=== PATIENT | female | born 1945 | race Caucasian/White ===

== ENCOUNTER → 2018-03-31 16:38 | Outpatient (CLI) | payer MEDICARE, SELFPAY ==
--- NOTE | 2018-03-31 16:45 | XR_ITS ---
XR chest 2V Ordering Physician: Gwen Yuen Patient Age: 72 years: Female HISTORY: ITS.REASON: COUGH; FEVER AND CHILLS TECHNIQUE: PA and lateral chest COMPARISON :Chest film [id number] FINDINGS moderately dense left lower lobe pneumonic infiltrate is seen at the left base most pronounced to the left CP angle.. Would encourage follow-up to to see a underlying pathology The left apex upper lung field is clear the left cherie is normal as is the right cherie. However return to stable with right lung appears stable and unchanged. Old right sixth rib fracture noted. Normal pulmonary vascularity. Heart normal size. T-spine with degenerative features . Also note compression fracture at at approximate T5 level which has occurred since previous studies.... Up to 20% decreased height at this compression fracture. . IMPRESSION: Left lower lobe pneumonia Wedge compression fracture at ~T 5 has occurred since 2014. CXR
== END ==
PROVIDERS: PCP Internal Medicine Adolescent Medicine; Visit Provider Nurse Practitioner Family
DX: R05 Cough (principal); R50.9 Fever, unspecified
CPT/HCPCS: 71046

== ENCOUNTER → 2018-04-07 12:37 | Outpatient (CLI) | payer MEDICARE, SELFPAY ==
--- NOTE | 2018-04-07 12:42 | XR_ITS ---
XR chest 2V HISTORY: ITS.REASON: PNEUMONIA ORDERING PHYSICIAN: Gwen Yuen PATIENT AGE: 72 years COMPARISON: 03/31/2018 FINDINGS: The cardiomediastinal silhouette and pulmonary vascularity are within normal limits. Left lower lobe pneumonia once again noted with minimal improvement in lung base laterally. Increased density is also present in right lower lobe not present on previous study may be due to atelectasis or infiltrate. Upper lobes are clear. There is an old right sixth rib fracture. IMPRESSION: Slight improvement left lower lobe pneumonia. Increased density right lung base which may be related atelectasis or infiltrate developed since the previous exam
== END ==
PROVIDERS: PCP Internal Medicine Adolescent Medicine; Visit Provider Nurse Practitioner Family
DX: J18.1 Lobar pneumonia, unspecified organism (principal)
CPT/HCPCS: 71046

== ENCOUNTER → 2018-04-17 13:17 | Outpatient (CLI) | payer MEDICARE, SELFPAY ==
--- NOTE | 2018-04-17 13:20 | US_ITS ---
US thyroid HISTORY: ITS.REASON: THYROID NODULE ORDERING PHYSICIAN: Gwen Yuen PATIENT AGE: 72 years Comparison: None FINDINGS: The right lobe is 4.5 x 2 x 3.1 cm. The left lobe is 4.3 x 1.7 x 1.3 cm. The isthmus is thickened at 8 mm. There are 2 nodules involving the isthmus 1 centrally at 7 x 4 mm. This is hypoechoic and not well-defined. Additional isoechoic nodule is present slightly laterally measuring 7 x 4 mm. A cyst is present in the mid aspect of the right lobe at 8 x 5 mm. A 4 mm cyst is present in the upper pole on the right. There is a 12 x 9 mm isoechoic nodule in the deep aspect of the right lobe. In the upper pole on the left there is a 10 x 5 mm slightly hypoechoic nodule. A 4 mm mixed hypoechoic nodules present in the lower pole on the right. IMPRESSION: Mildly enlarged thyroid gland with multiple nodules. Please see above for detail. Consider follow-up in 6 months to confirm stability
--- NOTE | 2018-04-17 13:20 | MM_ITS ---
Dig mamm BI DX w/CAD Right breast ultrasound complete with axilla INDICATION: Follow-up abnormal CT scan demonstrating right breast mass ORDERING PHYSICIAN: Gwen Yuen PATIENT AGE: 72 years COMPARISON: 05/14/2017 TECHNIQUE: Standard images performed along with spot compression views and right breast ultrasound FINDINGS: There is average fibroglandular tissue. There is a 9 mm nodule within the medial aspect of the right breast similar to the previous exam and likely representing the abnormality that was noted on the CT scan. There is some asymmetric density in the lateral aspect of the right breast. No malignant appearing mass or malignant appearing microcalcification is evident. The left breast has an unremarkable appearance. Right breast ultrasound: There is a 9 x 5 mm hypoechoic lesion in 3:00 region of the right breast corresponding to the mammographic abnormality. This was present on previous ultrasound of 05/30/2008 and is not significant changed. There are some low-level echoes. This could represent a small fibroadenoma or complex cyst. IMPRESSION: Right breast nodule not significant changed likely corresponding to the CT abnormality and represents complex cyst or fibroadenoma. Those images are not available for comparison. This has been stable dating back to 2007 on the ultrasound BI-RADS Category: 2 Benign Finding(s) RECOMMENDED FOLLOW-UP: 1YR - 1 YEAR FOLLOW-UP (A letter has been sent to the patient regarding results of the study.)
[2018-04-17 15:30] LABS: Basophils # 0.1 K/mm3 (0-0.2); Basophils % 1.1 % (0.1-2.0); Eosinophils # 0.1 K/mm3 (0.0-0.4); Eosinophils % 1.4 % (0.1-12.0); Hematocrit 43.7 % (37.0-47.0); Hemoglobin 13.5 g/dL (12.2-16.2); Lymphocytes # 1.6 K/mm3 (0.7-4.5); Lymphocytes % 21.1 K/mm3 (10-50); Mean Corpuscular HGB Conc 30.8 g/dL (31.8-35.4); Mean Corpuscular Hemoglobin 27.8 pg (27.0-31.2); Mean Corpuscular Volume 90.2 fl (81-99); Mean Platelet Volume 6.7 fl (7.4-10.4); Monocytes # 0.3 K/mm3 (0.1-1.0); Monocytes % 4.2 % (1.7-9.3); Neutrophils # 5.3 K/mm3 (1.8-7.8); Neutrophils % 72.1 % (37.0-80.0); Platelet Count 688 K/mm3 (142-424); Red Blood Count 4.85 M/mm3 (4.20-5.40); White Blood Count 7.4 K/mm3 (4.8-10.8)
[2018-04-17 16:52] LABS: Alanine Aminotransferase 22 U/L (12-78); Albumin Level 3.6 gm/dL (3.4-5.0); Albumin/Globulin Ratio 0.9 (1.1-1.8); Alkaline Phosphatase 83 U/L (46-116); Anion Gap 13.2 mEq/L (5-15); Aspartate Amino Transferase 9 U/L (15-37); Bilirubin,Total 0.5 mg/dL (0.2-1.0); Blood Urea Nitrogen 11 mg/dL (7-18); Calcium 10.3 mg/dL (8.5-10.1); Carbon Dioxide 31 mmol/L (21.0-32.0); Chloride 100 mmol/L (98-107); Creatinine,Serum 0.76 mg/dL (0.55-1.02); Estimated Glomerular Filt Rate 75 ml/min (>60); GFR (African American) 91 ML/MIN (>60); Globulin 4.1 gm/dl (1.3-3.2); Glucose 192 mg/dL (74-106); Potassium 5.2 mmoL/L (3.5-5.1); Sodium 139 mmol/L (136-145); Total Protein,Serum 7.7 gm/dL (6.4-8.2)
== END ==
PROVIDERS: Family Provider Nurse Practitioner Family; PCP Internal Medicine Adolescent Medicine; Visit Provider Nurse Practitioner Family
DX: N63.10 Unspecified lump in the right breast, unspecified quadrant (principal); R92.8 Other abnormal and inconclusive findings on diagnostic imaging of breast; E04.1 Nontoxic single thyroid nodule
CPT/HCPCS: 36415; 76536; 76641; 77066; 80053; 85025

== ENCOUNTER → 2018-05-01 13:08 | Outpatient (CLI) | payer MEDICARE, SELFPAY ==
--- NOTE | 2018-05-01 13:23 | XR_ITS ---
XR chest 2V HISTORY: ITS.REASON: PNEUMONIA ORDERING PHYSICIAN: Gwen Yuen PATIENT AGE: 73 years Technique: PA and lateral chest COMPARISON: 04/07/2018 FINDINGS: The left lung base appears slightly clear. Slight clearing of infiltrate here but but was still some residual airspace disease at left base. I about with improving slowly resolving pneumonia. Minimal airspace disease at right base may reflect atelectasis and scarring. Upper lung fernandez are clear. Heart cherie and mediastinal structures stable. Chest wall unchanged. Old compression fracture upper T-spine again noted IMPRESSION -------- slight further clearing & improvement of the left lower lobe pneumonia resolving infiltrate left base Slight additional atelectasis at right base on today's study
[2018-05-01 13:52] LABS: Basophils % 0.6 % (0.1-2.0); Eosinophils # 0.1 K/mm3 (0.0-0.4); Eosinophils % 1.5 % (0.1-12.0); Hemoglobin 12.6 g/dL (12.2-16.2); Lymphocytes # 1.4 K/mm3 (0.7-4.5); Lymphocytes % 22.3 K/mm3 (10-50); Mean Corpuscular HGB Conc 31.6 g/dL (31.8-35.4); Mean Corpuscular Hemoglobin 28.6 pg (27.0-31.2); Mean Corpuscular Volume 90.7 fl (81-99); Mean Platelet Volume 6.7 fl (7.4-10.4); Monocytes # 0.2 K/mm3 (0.1-1.0); Monocytes % 3.7 % (1.7-9.3); Neutrophils # 4.6 K/mm3 (1.8-7.8); Neutrophils % 71.9 % (37.0-80.0); Platelet Count 389 K/mm3 (142-424); Red Blood Count 4.42 M/mm3 (4.20-5.40); Red Cell Distribution Width 13.7 % (11.5-17.5); White Blood Count 6.4 K/mm3 (4.8-10.8)
[2018-05-01 14:34] LABS: Alanine Aminotransferase 30 U/L (12-78); Albumin Level 3.9 gm/dL (3.4-5.0); Albumin/Globulin Ratio 1.1 (1.1-1.8); Alkaline Phosphatase 69 U/L (46-116); Anion Gap 11.9 mEq/L (5-15); Aspartate Amino Transferase 13 U/L (15-37); Bilirubin,Total 0.5 mg/dL (0.2-1.0); Blood Urea Nitrogen 15 mg/dL (7-18); Calcium 9.9 mg/dL (8.5-10.1); Carbon Dioxide 29 mmol/L (21.0-32.0); Chloride 103 mmol/L (98-107); Creatinine,Serum 0.85 mg/dL (0.55-1.02); Estimated Glomerular Filt Rate 66 ml/min (>60); GFR (African American) 80 ML/MIN (>60); Globulin 3.5 gm/dl (1.3-3.2); Glucose 160 mg/dL (74-106); Potassium 3.9 mmoL/L (3.5-5.1); Sodium 140 mmol/L (136-145); Total Protein,Serum 7.4 gm/dL (6.4-8.2)
== END ==
PROVIDERS: PCP Internal Medicine Adolescent Medicine; Visit Provider Nurse Practitioner Family
DX: J18.1 Lobar pneumonia, unspecified organism (principal); E87.1 Hypo-osmolality and hyponatremia
CPT/HCPCS: 36415; 71046; 80053; 85025

== ENCOUNTER → 2018-05-13 10:01 | Outpatient (CLI) | payer MEDICARE, SELFPAY ==
--- NOTE | 2018-05-13 10:04 | XR_ITS ---
XR ankle LT min 3V HISTORY: Follow-up fracture ITS.REASON: Left ankle fracture ORDERING PHYSICIAN: Michael Reyes MD PATIENT AGE: 73 years Comparison: 05/08/2019 FINDINGS: There is a lateral splint present. Nondisplaced distal fibular fracture once again noted not significant change. Nondisplaced fracture involves the base of the medial malleolus as before. There is an avulsion fracture of the tip of the medial malleolus and could be old. The ankle mortise appears slightly widened as before. IMPRESSION: Overall no change in the distal fibular and medial malleolus fracture with mild widening of the ankle mortise.
== END ==
PROVIDERS: PCP Internal Medicine Adolescent Medicine; Visit Provider Orthopaedic Surgery
DX: S82.63XA Displaced fracture of lateral malleolus of unspecified fibula, initial encounter for closed fracture (principal)
CPT/HCPCS: 73610

== ENCOUNTER → 2018-05-28 13:29 | Outpatient (CLI) | payer MEDICARE, SELFPAY ==
--- NOTE | 2018-05-28 13:33 | XR_ITS ---
XR ankle LT min 3V HISTORY: Follow-up fracture ITS.REASON: follow up ORDERING PHYSICIAN: Shane Cox MD PATIENT AGE: 73 years Comparison: 05/13/2018 FINDINGS: Overall no change nondisplaced fracture of the distal shaft of the fibula. The ankle mortise is slightly widened and the distal tibia/fibular syndesmosis is also slightly widened. There is also avulsion fracture of the tip of the medial malleolus. IMPRESSION: Overall no change distal tib-fib fracture with mild widening of the ankle mortise and distal tibia fibular syndesmosis
--- NOTE | 2018-05-28 16:08 | XR_ITS ---
XR ankle LT min 3V HISTORY: Follow-up catheter placement ITS.REASON: left ankle fx/ cast applied ORDERING PHYSICIAN: Shane Cox MD PATIENT AGE: 73 years Comparison: 05/28/2018 FINDINGS: A cast is in place stabilizing the distal fibular and tibial fractures with mild persistent widening of the ankle mortise not significant changed. IMPRESSION: Interval cast placement otherwise no change in the nondisplaced distal tibia and fibular fractures with mild widening of the ankle mortise
== END ==
PROVIDERS: PCP Internal Medicine Adolescent Medicine; Visit Provider Orthopaedic Surgery
DX: S82.63XA Displaced fracture of lateral malleolus of unspecified fibula, initial encounter for closed fracture (principal)
CPT/HCPCS: 73610

== ENCOUNTER → 2018-06-19 13:18 | Outpatient (CLI) | payer MEDICARE, SELFPAY ==
--- NOTE | 2018-06-19 13:20 | XR_ITS ---
XR ankle LT min 3V HISTORY: Follow-up fracture ITS.REASON: FOLLOW UP AFTER REMOVAL OF CAST! ORDERING PHYSICIAN: Shane Cox MD PATIENT AGE: 73 years Comparison: 05/28/2018 FINDINGS: The cast has been removed. Bimalleolar fracture once again noted. The ankle mortise appears slightly more widened on today's exam. The talus appears slightly displaced laterally with mild widening of the tibiofibular space. Medial malleolar fracture line is still present. The lateral malleolus fracture line appears less apparent. IMPRESSION: 1. Bimalleolar fracture as described above with mild widening of the ankle mortise suggesting injury to the tibiofibular syndesmosis
[2018-06-19 16:04] LABS: Anion Gap 13.9 mEq/L (5-15); Blood Urea Nitrogen 15 mg/dL (7-18); Calcium 10.3 mg/dL (8.5-10.1); Carbon Dioxide 29 mmol/L (21.0-32.0); Chloride 102 mmol/L (98-107); Creatinine,Serum 0.93 mg/dL (0.55-1.02); Estimated Glomerular Filt Rate 59 ml/min (>60); GFR (African American) 72 ML/MIN (>60); Glucose 240 mg/dL (74-106); Potassium 4.9 mmoL/L (3.5-5.1); Sodium 140 mmol/L (136-145)
== END ==
PROVIDERS: Nurse Practitioner Family; PCP Internal Medicine Adolescent Medicine; Visit Provider Orthopaedic Surgery
DX: S82.63XA Displaced fracture of lateral malleolus of unspecified fibula, initial encounter for closed fracture (principal); E87.1 Hypo-osmolality and hyponatremia
CPT/HCPCS: 36415; 73610; 80048

== ENCOUNTER 2018-06-19 14:22 | Outpatient (RCR) | payer MEDICARE, SELFPAY | END 2018-06-19 14:23 | disposition home or self-care (01) | LOC: PT 14:22 | PROVIDERS: Family Provider Nurse Practitioner Family; PCP Internal Medicine Adolescent Medicine; Visit Provider Orthopaedic Surgery | DX: S82.63XA Displaced fracture of lateral malleolus of unspecified fibula, initial encounter for closed fracture (principal) | CPT/HCPCS: 97760 ==

== ENCOUNTER → 2018-07-31 12:44 | Outpatient (CLI) | payer MEDICARE, SELFPAY ==
--- NOTE | 2018-07-31 12:47 | XR_ITS ---
XR ankle LT min 3V HISTORY: Follow-up fracture ITS.REASON: lt ankle fx fu ORDERING PHYSICIAN: Shane Cox MD PATIENT AGE: 73 years Comparison: 06/19/2018 FINDINGS: There is diffuse osteopenia about the ankle. Fracture at the base of the medial malleolus once again noted somewhat less apparent. Nondisplaced fracture of the distal fibula noted somewhat less apparent. Ankle mortise appears slightly widened as before with subcortical lucency along the lateral aspect of the talar dome. IMPRESSION: Healing bimalleolar fracture with mild widening of the ankle mortise and possible developing osteochondrosis of the lateral aspect of the talar dome
== END ==
PROVIDERS: PCP Internal Medicine Adolescent Medicine; Visit Provider Orthopaedic Surgery
DX: S82.63XA Displaced fracture of lateral malleolus of unspecified fibula, initial encounter for closed fracture (principal)
CPT/HCPCS: 73610

== ENCOUNTER → 2018-09-18 11:59 | Outpatient (CLI) | payer MEDICARE, SELFPAY ==
--- NOTE | 2018-09-18 12:02 | XR_ITS ---
XR ankle LT min 3V HISTORY: Follow-up fracture or ITS.REASON: follow up out of cam walker. ORDERING PHYSICIAN: Shane Cox MD PATIENT AGE: 73 years Comparison: None FINDINGS: There is diffuse osteopenia. Healed fractures are present involving the distal fibula and medial malleolus. Normal alignment. IMPRESSION: No change diffuse osteopenia with healed fractures of the distal fibula and medial malleolus
== END ==
PROVIDERS: PCP Internal Medicine Adolescent Medicine; Visit Provider Orthopaedic Surgery
DX: S82.63XA Displaced fracture of lateral malleolus of unspecified fibula, initial encounter for closed fracture (principal)
CPT/HCPCS: 73610

== ENCOUNTER → 2018-11-06 14:49 | Outpatient (CLI) | payer MEDICARE, SELFPAY ==
--- NOTE | 2018-11-06 15:02 | XR_ITS ---
XR ankle wt bearing LT min 3V HISTORY: ITS.REASON: pain ORDERING PHYSICIAN: Manuela Stevens DPM PATIENT AGE: 73 years Comparison: 09/18/2018 FINDINGS: Healed distal fibular fracture is noted. There are minimal osteoarthritic changes of the ankle joint with some mild deformity of the distal fibula from the old fracture. There is a faint lucency involving the lateral aspect of the talar dome in the subcortical region. There are mild hypertrophic changes at the medial malleoli region distally No other significant anomalies are evident. IMPRESSION: 1. Healed distal fibular fracture. 2. Subcortical lucency of the lateral aspect of the talar dome. This is nonspecific and may only be due to projection. An osteochondral defect or subcortical cyst is also a consideration. CT or MRI may be of further value if clinically warranted
--- NOTE | 2018-11-06 15:02 | XR_ITS ---
XR ankle wt bearing RT min 3V HISTORY: ITS.REASON: pain ORDERING PHYSICIAN: Manuela Stevens DPM PATIENT AGE: 73 years Comparison: None FINDINGS: The ankle joint has an unremarkable appearance. The talar dome is unremarkable in the ankle mortise is preserved. There is pes planus with mild superior displacement of the navicular and bony hypertrophy at the talonavicular joint and the metatarsal tarsal joints dorsally. A prominent calcaneal spur is present at 10 mm. IMPRESSION: 1. Negative ankle. 2. Pes planus with degenerative changes
== END ==
PROVIDERS: PCP Internal Medicine Adolescent Medicine; Visit Provider Podiatrist
DX: M25.572 Pain in left ankle and joints of left foot (principal); M25.571 Pain in right ankle and joints of right foot
CPT/HCPCS: 73610

== ENCOUNTER 2018-12-16 11:00 | Outpatient (RCR) | payer MEDICARE, SELFPAY ==
--- NOTE | 2018-11-18 10:02 | HMH.PTOPEV ---
PT Outpatient Evaluation Rehab PT Outpatient Evaluation Start: 11/18/18 09:11 Freq: Status: Active Protocol: Document 11/18/18 09:50 NEGRITA (Rec: 11/18/18 09:58 PHORNE [id number]) Electronically Signed By Faisal Bejarano, PT 11/18/18 09:50 Outpatient Therapy Subjective History Subjective History Pt is 73 yowf who presents with c/o left ankle stiffness, pain and swelling 6 mos S/P left distal fibula fx with conservative management. She reports having home health therapy which did help, but remains stiff and swollen. She has hx of DM-II, HTN, CVA, HL , HANNAH. No current numbness or tingling and only mild pain. Chief Complaint Pain Stiff Swelling Symptom Type Ache Symptoms Relieved By Rest/Positioning Symptoms Aggravated By Physical Activity Prior Functional Limitations None Current Functional Limitations Recreation Activity Walking Stairs Symptom Description Intermittent Activity Dependent Level of pain today (0-10) 2 Pain scale - at its worst (0-10) 4 Ankle/Foot Eval Gait Observation General Gait Pattern Observation Antalgic Gait Palpation Tenderness left Ankle/Foot Palpation Findings Tenderness Ankle/Foot Palpation Overall Comment peroneal tendon and muscles ROM Ankle/Foot Dorsiflexion w/Knee Extended 0-4 Active Range Motion (degrees) Ankle/Foot Dorsiflexion w/Knee Extended 0-8 Passive Range (degrees) Ankle/Foot Plantar Flexion Active Range 0-34 of Motion (degrees) Ankle/Foot Plantar Flexion Passive Range 0-34 of Motion (degrees) Ankle/Foot Eversion Active Range of 0-4 Motion (degrees) Ankle/Foot Eversion Passive Range of 0-6 Motion (degrees) Ankle/Foot Inversion Active Range of 0-20 Motion (degrees) Ankle/Foot Inversion Passive Range of 0-25 Motion (degrees) MMT Ankle Dorsiflexion Strength Grade 3+ Fair+ Ankle Plantarflexion Strength Grade 4- Good- Foot Eversion Strength Grade 3+ Fair+ Foot Inversion Strength Grade 3+ Fair+ Outpatient Therapy Assessment Impairments Problems/Impairmments Palpation Tenderness Impaired Range of Motion Impaired Strength Impaired Endurance Impaired Gait Pattern
== END 2018-12-17 11:05 | disposition home or self-care (01) ==
LOC: PT 11:00
PROVIDERS: Visit Provider Podiatrist
DX: I89.0 Lymphedema, not elsewhere classified (principal)
CPT/HCPCS: 97010; 97014; 97016; 97110; 97140; 97163; 97760; G0283

== ENCOUNTER → 2018-12-26 08:13 | Outpatient (CLI) | payer MEDICARE, SELFPAY ==
--- NOTE | 2018-12-26 | CI_ITS ---
Cerebrovascular Exam Indications: 785.9 Bruit. IMPRESSIONS 1. The bilateral vertebral arteries are patent with normal antegrade flow. 2. Study suggests occlusion involving the right common carotid artery and the right internal carotid artery. 3. Study suggests 50-69% stenosis involving the left internal carotid artery. 4. Study suggests >60% stenosis involving the left external carotid artery. Carotid duplex study. Complete study and Doppler flow study including spectral analysis, color and [place] scale imaging. Height: Height: 154.9cm. Height: 61in. Weight: Weight: 72.6kg. Weight: 159.7lb. Body mass index: BMI: 30.2kg/m^2. Body surface area: BSA: 1.79m^2. Location: Vascular laboratory. Patient status: Outpatient. CRITICAL FINDINGS - Reported to: Katharina Licea - Read back and verified. - 12/26/1845 - Occluded CCA, ICA RIGHT Tables: Arterial flow: + +--------+--------+ Location V sys V ed + +--------+--------+ Right ECA 25cm/s -------- + +--------+--------+ Right vertebral 57.5cm/s -------- + +--------+--------+ Left CCA - proximal 67.8cm/s 16.7cm/s + +--------+--------+ Left CCA - distal 58.4cm/s 13.8cm/s + +--------+--------+ Left ECA 373cm/s -------- + +--------+--------+ Left ICA - mid 181cm/s 69.6cm/s + +--------+--------+ Left ICA - distal 113cm/s 39.3cm/s + +--------+--------+ Left vertebral 63.8cm/s -------- + +--------+--------+ Velocity ratios: + + + + Left, V sys Left, V ed + + + + Max ICA/dist CCA 3.1 5.04 + + + + (Report amended ) Electronically signed by: Ancelmo Jarquin [id number]
--- NOTE | 2018-12-26 09:10 | US_ITS ---
US thyroid HISTORY: Follow-up thyroid nodule ITS.REASON: THYROID NODULE ORDERING PHYSICIAN: Katharina Licea PATIENT AGE: 73 years Comparison: 04/17/2018 FINDINGS: The isthmus is thickened at 9 mm. There are numerous bilateral thyroid nodules once again noted. There are least 2 nodules in the isthmus one on the right at 8 mm and one centrally at 8 mm. These are not significantly changed. The right lobe is 4.8 x 1.9 x 2.3 cm. There are numerous nodules present including small cysts. A complex cystic nodule is resident 6 mm roughly unchanged. Previously noted simple appearing cyst along the lower pole is no longer apparent. There is a solid nodule along the posterior aspect of the right lobe at 12 mm unchanged and an additional isoechoic solid nodule in the lower pole at 8 mm probably unchanged. The left lobe is 4.1 x 1.2 x 1.6 cm. An isoechoic nodule is present in the upper pole at 8 mm unchanged. A 4 mm isoechoic nodule is present in the mid polar region unchanged. A small ill-defined area of slight decrease echogenicity present along the lower pole at 5 mm unchanged. No new suspicious nodules are evident. IMPRESSION: Multinodular goiter not significantly changed
== END ==
PROVIDERS: PCP Internal Medicine Adolescent Medicine; Visit Provider Nurse Practitioner Family
DX: I65.23 Occlusion and stenosis of bilateral carotid arteries (principal); R09.89 Other specified symptoms and signs involving the circulatory and respiratory systems; E04.1 Nontoxic single thyroid nodule
CPT/HCPCS: 76536; 93880

== ENCOUNTER → 2018-12-29 10:58 | Outpatient (CLI) | payer MEDICARE, SELFPAY ==
--- NOTE | 2018-12-29 11:10 | CT_ITS ---
CT angio head INDICATION: Carotid stenosis ITS.REASON: EMMA CAROTID ARTERY STENOSIS ORDERING PHYSICIAN: Katharina Licea PATIENT AGE: 73 years COMPARISON: None TECHNIQUE: Axial images are obtained following the intravenous administration of 100 mL of Optiray 350. Sagittal and coronal reformatted images are reviewed as well. All CT scans at the facility use one or more dose reduction, viz: automated exposure control, ma/kV adjustment per patient size (including targeted exams where dose is matched to indication, i.e. head), or iterative reconstruction technique. FINDINGS: There is occlusion of the right common carotid artery extending into the right internal carotid artery. The right internal carotid artery is occluded in the cervical portion at the base of the skull as well as the right cavernous sinus. There is reconstitution of the right posterior cerebral, anterior cerebral, middle cerebral artery from the [place]. Atheromatous changes involve the intracranial portion of the left internal carotid artery. No obvious aneurysm. The vertebrobasilar system has an unremarkable appearance. Both vertebral arteries are patent No enhancing intracranial lesions are evident. IMPRESSION: There is occlusion of the right common carotid artery which extends into the cervical portion of the internal carotid artery and into the cranial portion of the internal carotid artery with reconstitution of the anterior cerebral, middle, and posterior vertebral arteries via the [place]
--- NOTE | 2018-12-29 11:10 | CT_ITS ---
CT angio neck INDICATION: Carotid occlusion on the right, left carotid stenosis ITS.REASON: EMMA CAROTID ARTERY STENOSIS ORDERING PHYSICIAN: Katharina Licea PATIENT AGE: 73 years COMPARISON: None TECHNIQUE: Axial images are obtained following the bolus administration of 100 mL's of Optiray 350 contrast. Sagittal and coronal reformatted images are reviewed as well. All CT scans at the facility use one or more dose reduction, viz: automated exposure control, ma/kV adjustment per patient size (including targeted exams where dose is matched to indication, i.e. head), or iterative reconstruction technique. FINDINGS: Aortic arch: There is tortuosity of the proximal aspect of the great vessels with no significant stenosis evident. Carotids: There is complete occlusion of the right common carotid beginning proximally and extending to the carotid bifurcation also involving the cervical portion of the internal carotid on the right as well as the cranial portion of the right internal carotid only with reconstitution of the anterior cerebral, middle cerebral, and posterior vertebral arteries via the [place]. The left common carotid has an unremarkable appearance. There is a moderate amount of calcific plaque within the right carotid bifurcation with an area of short segment stenosis involving the ostium of the left internal carotid artery of 63%. There is prominent tortuosity of the carotids. IMPRESSION: 1. Occlusion of the right common carotid, cervical portion of the internal carotid, and right cranial portion of the internal carotid 2. High-grade stenosis of the proximal aspect of the left internal carotid artery of 63% IMPRESSION:
== END ==
PROVIDERS: PCP Internal Medicine Adolescent Medicine; Visit Provider Nurse Practitioner Family
DX: I65.23 Occlusion and stenosis of bilateral carotid arteries (principal)
CPT/HCPCS: 70496; 70498; Q9967

== ENCOUNTER → 2019-08-13 12:35 | Outpatient (CLI) | payer MEDICARE, SELFPAY ==
--- NOTE | 2019-08-13 12:37 | MM_ITS ---
PROCEDURE: MM DIG SCREENING MAMM BI W/CAD Patient Age:74Y CLINICAL INDICATION: SCREENING 74-year-old. No hormones, no new complaints. Noncontributory family history COMPARISON: DIGMAMMS MAMMOGRAM SCREEN-SPECIAL TESTER N/C from 05/08/2010 [facility] DIGITAL MAMM-SCREEN BILATERAL from 05/11/2011 [facility] DIGITAL MAMM-SCREEN BILATERAL from 06/05/2012 [facility] DIG MAMM-SCREEN EMMA W/CAD from 05/14/2017 [facility] MM Dig mamm BI DX w/CAD from 04/17/2018 TECHNIQUE: Standard CC and MLO images were obtained. R2 CAD reviewed. FINDINGS: Moderate fibroglandular elements most evident central and upper outer quadrant both breast but Fibroglandular elements appear stable bilaterally. No new nor suspicious mass in either breast. No suspicious calcifications.. CAD highlights no new areas of concern Right breast: No new areas of concern . Stable round density medial inferior right breast. 10 mm size but no significant change since multiple previous studies dating back to 1999 12. This can be followed,. Remainder of the right breast unchanged with no other areas of concern. Left breast: No new areas of concern. Mole markers are seen at the superior and inferior breast.. IMPRESSION: Stable bilateral mammogram. No new areas of concern. Longstanding stable densities right breast Routine annual follow-up 1 year recommended BI-RAD Category: 2 Benign Finding(s) FOLLOW-UP: 1YR 1 Year Follow-up (A letter has been sent to the patient regarding results of the study.) Dictated by: Austin Garcia MD 08/13/2019 13:40 Electronically signed by Austin Garcia MD in [place] 08/13/2019 13:40
== END ==
PROVIDERS: PCP Internal Medicine Adolescent Medicine; Visit Provider Nurse Practitioner Family
DX: Z12.31 Encounter for screening mammogram for malignant neoplasm of breast (principal)
CPT/HCPCS: 77067

== ENCOUNTER → 2019-12-18 11:58 | Outpatient (CLI) | payer MEDICARE, SELFPAY | PROVIDERS: PCP Nurse Practitioner Family; Visit Provider Nurse Practitioner Family | DX: R00.1 Bradycardia, unspecified (principal) | CPT/HCPCS: 93225; 93226 ==

== ENCOUNTER → 2020-04-11 12:39 | Outpatient (CLI) | payer MEDICARE, SELFPAY ==
--- NOTE | 2020-04-11 | CA_ITS ---
APPROVED REPORT Lapping Machine Tender: Mary Ann Harris, PRECISION STRUCTURAL METAL FITTER Laterality: Bilateral Study Quality: Fair Indications: Bruit, Surgical f/u Surgery/Intervention left KRISSY Occluded Doppler Spectral Velocity Analysis ECA (R) 48.00/0.90 cm/s ECA (L) 133.70/15.40 cm/s Vert (R) 44.60/12.00 cm/s dICA (L) 92.00/27.70 cm/s Yovani (L) 124.20/23.20 cm/s pICA (L) 134.50/23.10 cm/s dCCA (L) 75.40/16.30 cm/s pCCA (L) 114.00/18.80 cm/s Vert (L) 64.30/16.30 cm/s ICA/CCA 1.80 Conclusion Duplex evaluation demonstrates occlusion for the right common carotid and internal carotid artery, known. Duplex evaluation demonstrates stenosis of the left proximal internal carotid artery in the range of 20-49% with PSV <140 cm/sec, EDV <100 cm/sec, and IC/CC Ratio <4.0. Duplex evaluation demonstrates antegrade flow of the bilateral Vertebral Arteries. Electronically signed by : Ancelmo Jarquin MD 04/11/2020 17:05:52
== END ==
PROVIDERS: PCP Nurse Practitioner Family; Visit Provider Thoracic Surgery (Cardiothoracic Vascular Surgery)
DX: I65.23 Occlusion and stenosis of bilateral carotid arteries (principal)
CPT/HCPCS: 93880

== ENCOUNTER → 2020-11-03 08:41 | Outpatient (CLI) | payer MEDICARE, SELFPAY ==
--- NOTE | 2020-11-03 08:45 | MM_ITS ---
PROCEDURE: MM DIG SCREENING MAMM BI W/CAD Referring Doctor: Katharina Licea Patient Age:75Y CLINICAL INDICATION: SCREENING COMPARISON: MG DIGMAMMS MAMMOGRAM SCREEN-CONTAINER FINISHER N/C from 04/07/2009 MG DIGMAMMS MAMMOGRAM SCREEN-CONTAINER FINISHER N/C from 05/08/2010 MG [facility] DIGITAL MAMM-SCREEN BILATERAL from 05/11/2011 MG [facility] DIGITAL MAMM-SCREEN BILATERAL from 06/05/2012 MG [facility] DIG MAMM-SCREEN EMMA W/CAD from 05/14/2017 MG [facility] MM Dig mamm BI DX w/CAD from 04/17/2018 MG MM DIG SCREENING MAMM BI W/CAD from 08/13/2019 TECHNIQUE: Standard CC and MLO images were obtained. R2 CAD reviewed. Bilateral digital breast tomosynthesis included. FINDINGS: Moderate density breast/moderate scattered fibroglandular elements throughout both breast but with no new dominant or suspicious mass. No new suspicious calcifications... Scattered moles skin moles most with markers both breast again observed Left breast-no new areas of significant concern. The Minor areas of asymmetry stable since 2010; follow-up left mammogram 1 year Right breast: No new areas of concern Stable well-marginated nodular density medial right retroareolar region again evident unchanged since at least 2018 and actually was present 2009 mammogram. Can be followed safely. Remainder breast unchanged IMPRESSION: Stable mammogram with no new areas of significant concern Bilateral follow-up 1 year recommended BI-RAD Category: 2 Benign Finding(s) FOLLOW-UP: 1YR 1 Year Follow-up (A letter has been sent to the patient regarding results of the study.) Dictated by: Austin Garcia MD 11/09/2020 12:18 Austin Garcia MD in [place] 11/09/2020 12:18
--- NOTE | 2020-11-03 08:45 | US_ITS ---
PROCEDURE: US THYROID CLINICAL INDICATION: THYROID NODULE Follow-up thyroid nodule COMPARISON: US THY US thyroid from 12/26/2018 FINDINGS: The right lobe measures 4.4 x 2.4 x 2.7 cm. There is a 5 mm cyst in the upper pole on the right. Small spongiform nodule is present in the mid polar region at 5 mm. Posteriorly there is a 12 x 8 mm area I so echogenicity on the right. This is unchanged. Other smaller cystic lesions are present in the right lobe. The left lobe is 3.8 x 1.3 x 1.5 cm. There is a 9 x 5 mm slightly hypoechoic nodule in the upper pole on the left unchanged. Other smaller nodular regions are present which may merely represent heterogeneous echogenicity. The isthmus is thickened. A 1 cm well-circumscribed nodules present in the isthmus which is slightly hypoechoic on the right and slightly hyperechoic on the left not significantly changed in size. IMPRESSION: Multinodular goiter overall not significantly changed Dictated by: Ancelmo Jarquin MD 11/03/2020 18:39 Ancelmo Jarquin MD in [place] 11/03/2020 18:39
== END ==
PROVIDERS: PCP Internal Medicine Adolescent Medicine; Visit Provider Nurse Practitioner Family
DX: Z12.31 Encounter for screening mammogram for malignant neoplasm of breast (principal); E04.1 Nontoxic single thyroid nodule
CPT/HCPCS: 76536; 77063; 77067

== ENCOUNTER → 2021-04-13 10:52 | Outpatient (CLI) | payer MEDICARE, MEDICAID, SELFPAY ==
--- NOTE | 2021-04-13 10:55 | CA_ITS ---
APPROVED REPORT [place] [employer]: JOSE Laterality: Bilateral Study Quality: Good Risk Factors Hypertension: Hyperlipidemia Diabetes, Hx- RCCA and KRISSY total occlussion. Doppler Spectral Velocity Analysis ECA (R) 46.90/5.10 cm/s ECA (L) 90.00/8.60 cm/s Vert (R) 57.10/14.80 cm/s dICA (L) 126.20/37.60 cm/s ICA/CCA 0.00 Yovani (L) 104.00/39.50 cm/s pICA (L) 220.40/68.20 cm/s dCCA (L) 61.00/14.10 cm/s pCCA (L) 53.30/10.90 cm/s Vert (L) 55.10/17.60 cm/s ICA/CCA 3.60 Findings Known Right Common carotid and Right internal carotid artery occlussion. Duplex evaluation demonstrates moderate stenosis of the proximal left Internal Carotid Artery in the range of 50-69% =140 cm/sec. Duplex evaluation demonstrates antegrade flow of the bilateral Vertebral Arteries. Conclusion Known Right Common carotid and Right internal carotid artery occlussion. Duplex evaluation demonstrates moderate stenosis of the proximal left Internal Carotid Artery in the range of 50-69% =140 cm/sec. Duplex evaluation demonstrates antegrade flow of the bilateral Vertebral Arteries. Electronically signed by : Ancelmo Jarquin MD 04/13/2021 15:37:39
== END ==
PROVIDERS: PCP Internal Medicine Adolescent Medicine; Visit Provider Thoracic Surgery (Cardiothoracic Vascular Surgery)
DX: R42 Dizziness and giddiness (principal)
CPT/HCPCS: 93880

== ENCOUNTER → 2021-07-20 15:29 | Outpatient (CLI) | payer MEDICARE, MEDICAID, SELFPAY ==
--- NOTE | 2021-07-20 15:38 | XR_ITS ---
PROCEDURE: XR CHEST 2V CLINICAL HISTORY: COVID-19, PNEUMONIA DUE TO COVID 19 COMPARISON: CR CXR2V XR chest 2V from 03/31/2018 CR CXR2V XR chest 2V from 04/07/2018 CR CXR2V XR chest 2V from 05/01/2018 FINDINGS: The cardiomediastinal silhouette and pulmonary vascularity are within normal limits. Bilateral pneumonia is present in the right upper, left upper, left mid and lower lung zone. These findings have progressed compared to the previous exam. No obvious effusion. There are old right-sided rib fractures. No acute bony abnormalities. IMPRESSION: Multifocal pneumonia which is worse consistent with worsening Covid19 pneumonia. Dictated by: Ancelmo Jarquin MD 07/20/2021 16:10 Ancelmo Jarquin MD in [place] 07/20/2021 16:10
== END ==
PROVIDERS: PCP Internal Medicine Adolescent Medicine; Visit Provider Internal Medicine Adolescent Medicine
DX: U07.1 COVID-19 (principal); J12.82 Pneumonia due to coronavirus disease 2019
CPT/HCPCS: 71046

== ENCOUNTER → 2021-07-25 10:27 | Outpatient (CLI) | payer MEDICARE, MEDICAID, SELFPAY | PROVIDERS: Visit Provider Internal Medicine Adolescent Medicine | DX: R30.0 Dysuria (principal) | CPT/HCPCS: 87086; 87088; 87186 ==

== ENCOUNTER 2021-07-25 10:43 | Observation (INO) | payer MEDICARE, MEDICAID, SELFPAY ==
[2021-07-25 11:19] VITALS: BMI 23.0
--- NOTE | 2021-07-25 11:23 | XR_ITS ---
PROCEDURE INFORMATION: Exam: XR Chest Exam date and time: 07/25/2021 11:23 AM Age: 76 years old Clinical indication: Other: Crackles on auscultation TECHNIQUE: Imaging protocol: XR of the chest. Views: 2 views. COMPARISON: CR XR CHEST 2V 07/20/2021 3:42 PM FINDINGS: Lungs: Bilateral consolidation and ground-glass opacities are unchanged, most prominent in the left lower lung. Pleural spaces: Minimal right costophrenic angle blunting. Heart/Mediastinum: No cardiomegaly. Bones/joints: No acute findings. IMPRESSION: Bilateral pneumonia consistent with COVID-19 pneumonia, unchanged. Possible small right pleural effusion.
[2021-07-25 11:41] LABS: Coronavirus 19, PCR Not Detected (NotDetected); Influenza A, PCR Not Detected (NotDetected); Influenza B, PCR Not Detected (NotDetected)
[2021-07-25 11:44] LABS: Basophils # 0.1 K/mm3 (0-0.2); Basophils % 0.2 % (0.1-2.0); Bilirubin,Total 0.7 mg/dl (0.2-1.3); Eosinophils # 0.1 K/mm3 (0.0-0.4); Eosinophils % 0.5 % (0.1-12.0); Hematocrit 41.3 % (37.0-47.0); Hemoglobin 13.5 g/dL (12.2-16.2); Lymphocytes # 0.9 K/mm3 (0.7-4.5); Lymphocytes % 3.6 % (10-50); Mean Corpuscular HGB Conc 32.8 g/dL (31.8-35.4); Mean Corpuscular Hemoglobin 30.2 pg (27.0-31.2); Mean Corpuscular Volume 92.1 fl (81-99); Mean Platelet Volume 7.4 fl (7.4-10.4); Monocytes # 0.7 K/mm3 (0.1-1.0); Monocytes % 2.9 % (1.7-9.3); Neutrophils # 22.2 K/mm3 (1.8-7.8); Neutrophils % 92.8 % (37.0-80.0); Platelet Count 378 K/mm3 (142-424); Red Blood Count 4.48 M/mm3 (4.20-5.40); Red Cell Distribution Width 13.8 % (11.5-17.5); White Blood Count 23.9 K/mm3 (4.8-10.8)
[2021-07-25 11:46] LABS: Chloride 88 mmol/L (98-107)
[2021-07-25 11:47] LABS: Potassium 4.2 mmoL/L (3.5-5.1); Sodium 123 mmol/L (136-145)
[2021-07-25 11:49] LABS: Alanine Aminotransferase 22 U/L (12-78); Anion Gap 12.2 mEq/L (5-15); Aspartate Amino Transferase 37 U/L (14-36); Blood Urea Nitrogen 18 mg/dl (7-17); Carbon Dioxide 27 mmol/L (22.0-30.0); Creatinine Clearance Estimated 45 mL/min (50-200); Estimated Glomerular Filt Rate 70 ml/min (>60); GFR (African American) 85 ML/MIN (>60)
[2021-07-25 11:50] LABS: Albumin Level 3.4 g/dl (3.5-5.0); Albumin/Globulin Ratio 1.1 (1.1-1.8); Alkaline Phosphatase 91 U/L (38-126); Bilirubin,Total 0.7 mg/dl (0.2-1.3); Calcium 9.3 mg/dl (8.4-10.2); Globulin 3.1 g/dL (1.3-3.2); Glucose 150 mg/dl (74-100); Magnesium 1.5 mg/dl (1.6-2.3); Total Protein,Serum 6.5 g/dl (6.3-8.2)
[2021-07-25 11:55] VITALS: BP 95/53; PULSE 74; RESP 15; TEMP 37; O2SAT 96
[2021-07-25 12:09] LABS: Lactic Acid 1.8 mmol/L (0.7-2.1)
[2021-07-25 12:15] VITALS: RESP 16
[2021-07-25 12:15] LABS: MANUAL DIFFERENTIAL MANUAL DIFFERENTIAL (MANUAL DIFF)
[2021-07-25 12:19] LABS: Hypochromasia 1+; Lymphocytes % 2 % (10-50); Macrocytosis 1+; Monocytes % 1 % (2-9); Neutrophils % 97 % (42-76); Platelet Estimate Normal; Total Cells Counted 100
[2021-07-25 12:30] LABS: Activated Partial Thrombo Time 28.2 seconds (22.8-30.6); INR 0.94 (0.9-1.1); Prothrombin Time 10.7 seconds (10.1-12.5)
--- NOTE | 2021-07-25 13:44 | HMH.PHAINT ---
MEDICATION RECONCILIATION COMPLETE USING SURESCRIPTS AND PREVIOUS OFFICE VISIT
--- NOTE | 2021-07-25 13:45 | ECG_ITS ---
APPROVED REPORT Exam: Resting ECG HR:70 bpm ECG Measurements Heart Rate 70 AXES OR 144 P 25 QRSd 84 QRS 30 QT 388 T 1 QTc 419 Conclusion Normal sinus rhythm Late R wave progression Abnormal ECG Electronically signed by : Ed Stevens MD 07/26/2021 17:28:41
--- NOTE | 2021-07-25 14:10 | P.CONPHA_ITS ---
[facility] Pharmacy VTE Monitoring - Patient Demographics Admission date: 07/25/21 Report Date: 07/25/21 Time: 14:10 Allergies/Adverse Reactions: Patient Allergies hydralazine Allergy (Verified 12/01/19 08:33) Height: 1.6 m Weight: 58.967 kg - VTE Risk Labs: VTE Related Lab Results Hgb 13.5 g/dL (12.2-16.2) 07/25/21 11:00 Hct 41.3 % (37.0-47.0) 07/25/21 11:00 Plt Count 378 K/mm3 (142-424) 07/25/21 11:00 PT 10.7 seconds (10.1-12.5) 07/25/21 11:00 INR 0.94 (0.9-1.1) 07/25/21 11:00 APTT 28.2 seconds (22.8-30.6) 07/25/21 11:00 BUN 18 mg/dl (7-17) H 07/25/21 11:00 Creatinine 0.80 mg/dl (0.52-1.04) 07/25/21 11:00 Estimated Creat Clear 45 mL/min (50-200) 07/25/21 11:00 Was VTE Risk Assessment Performed: Yes VTE Score: 4 VTE Risk Level: Low Risk - Prophylaxis VTE Prophylaxis Ordered?: Yes Types of VTE Prophylaxis: TEDS Knee High Location of Applied Device: Bilateral Lower Extremeties
--- NOTE | 2021-07-25 15:03 | HMH.HP ---
*Admission Date: 07/25/21 *Chief complaint: weakness, fever *History of present illness: Ms. Farr is a 76 yr old female seen initially in my office today for follow-up from recent Covid hospitalization. She was accompanied by her daughter. Concern however this morning for being hypotensive at home with systolics in the 80s. Family reports she has been doing better since getting home from extended hospitalization for Covid pneumonia. Is on Bactrim for bacterial pneumonia. Takes several medications for blood pressure at home including carvedilol twice daily, nifedipine daily, clonidine 3 times a day, and losartan every morning. Her blood pressures have gradually decreased over the past week with their lowest today in the office. Normal blood pressure for her is systolic less than 120 over less than 65. She has a known history of carotid artery stenosis with total occlusion of the right side. [employer] has been working with her. Patient reported to the office today saying she was feeling more weak and fatigued. Denied any chest pain, worsening shortness of breath (on baseline 2 L nasal cannula). Febrile this morning at home with temperature of 100.8. No nausea, vomiting, diarrhea. No swelling in her legs. No oumar confusion Directly admitted from the office due to hypotension and fever concerning for worsening infection/secondary bacterial infection after COVID pneumonia. [facility] History I have reviewed the patient's past medical history: Yes Medical History: Reports:: Cerebrovascular Accident (1992), Diabetes Mellitus Type 2, Hyperlipidemia, Hypertension, Transient Ischemic Attacks (TIA) Denies:: Cancer, Diabetes Mellitus Type 1, MRSA *Have you ever received a pneumonia vaccine?: No *Have you received a flu vaccine this season?: No Other Medical History: Reports: Arthritis Comment:: recent COVID daignosis and admission last month. Other Surgeries: Yes: Colonoscopy, , Hysterectomy-Total, Tubal Ligation, Other (arteries in neck expanded) Amputation: No Fractures: No - *Social History Last grade of school completed: 7th or 8th Smoking Status: Never smoker Alcohol Intake: never Alcohol Intake Frequency:: other Substance Use Type: denies use *Occupational Status:: retired Housing: house Household Members: family *Travel in the last 8 weeks: None Family Hx:: No significant family history Review of Systems - Review of Systems Review of systems:: pertinent systems reviewed and negative unless documented below (14 point review of systems performed, pertinent positives and negatives as per HPI) Meds Home Medications Medication Instructions Recorded Confirmed Type atorvastatin 20 mg tablet 20 mg PO HS 90 Days #90 05/28/18 07/25/21 History losartan 100 mg tablet 100 mg PO DAILY 90 Days #90 05/28/18 07/25/21 History nifedipine 90 mg tablet,extended 90 mg PO DAILY 30 Days #30 05/28/18 07/25/21 History release piygtlqj-epokwtf-cwwl-lutein tablet 1 tab PO DAILY tab 11/06/18 07/25/21 History metformin 1,000 mg tablet 1,000 mg PO DAILY 12/01/19 07/25/21 History ALPRAZolam [Xanax 0.5mg tab] 0.5 mg PO BID 07/25/21 07/25/21 History Albuterol Sulfate [Albuterol 8.5 puff IH Q4HP PRN 07/25/21 07/25/21 History Sulfate Hfa] Buspirone HCl [Buspar 10mg 10 mg PO BID 07/25/21 07/25/21 History tablet] Escitalopram Oxalate 5 mg PO DAILY 07/25/21 07/25/21 History carvediloL [Carvedilol 6.25mg Tab] 6.25 mg PO BID 07/25/21 07/25/21 History cloNIDine HCL [cloNIDine 0.1mg 0.1 mg PO TID 07/25/21 07/25/21 History Tablet] Allergies Allergy/AdvReac Type Severity Reaction Status Date / Time hydralazine Allergy Verified 12/01/19 08:33 Exam Vital signs and Labs for Last 24 Hours: Temp Pulse Resp BP Pulse Ox 98.6 F 74 16 95/53 L 96 07/25/21 11:55 07/25/21 11:55 07/25/21 12:15 07/25/21 11:55 07/25/21 11:55 Laboratory Results - last 24 hr 07/25/21 11:00: WBC 23.9 H*, RBC 4.48, Hgb 13.5, Hct 41.3
--- NOTE | 2021-07-25 15:44 | PC.NURSE ---
She is currently sitting up in bed. A&O x4. Remains on 2 L, pt does wear this @ home. No c/o SOA. Abdomen soft, round, non-tender w/ active BS. Appetite poor @ lunch. Skin intact. She requires standby assistance x1 when ambulating back and forth to the bathroom. No complaints voiced since arriving to floor. Call felipa w/in reach.
[2021-07-25 16:00] VITALS: BP 131/61; PULSE 77; RESP 18; TEMP 36.8; O2SAT 90
[2021-07-25 19:47] VITALS: BP 110/60; PULSE 85; RESP 20; TEMP 36.9; O2SAT 91
[2021-07-25 21:38] LABS: Microscopic, Urine URINE MICROSCOPIC (MICROSCOPIC)
[2021-07-25 21:38] LABS: POC Glucose,Bedside 134 (70-110)
[2021-07-25 21:50] LABS: Appearance,Urine SL CLOUDY (Clear); Bilirubin,Urine Negative (Negative); Blood, Urine 2+ (Negative); Color,Urine YELLOW (Yellow); Glucose,Urine (UA) Negative (Negative); Ketones,Urine Negative (Negative); Leukocyte Esterase,Urine TRACE (Negative); Nitrate,Urine POSITIVE (Negative); PH,Urine 6.5 (5.0-8.5); Protein,Urine 1+ (Negative); Specific Gravity, Urine 1.015 (1.005-1.030); Urobilinogen,Urine 0.2 EU/dl (0.2)
[2021-07-25 21:51] LABS: Squamous Epithelial Cell,Urine Occasional #/hpf (0-5); WBC,Urine 20-50 #/hpf (0-3)
[2021-07-25 21:52] LABS: Bacteria,Urine Trace /lpf
[2021-07-26 03:47] VITALS: BP 112/67; PULSE 71; RESP 16; TEMP 36.6; O2SAT 96
[2021-07-26 04:54] VITALS: BMI 23.9
[2021-07-26 05:29] LABS: POC Glucose,Bedside 141 (70-110)
--- NOTE | 2021-07-26 05:43 | PC.NURSE ---
lafleur catheter inserted earlier this shift as ordered. draining yellowish urine. remains on 2L NC. no signs of resp distress noted. c/o leg pain earlier this shift. tylenol administered as ordered. also requested xanax which she states she takes at home. xanax 0.5mg one time dose received from Dr. Poole.
[2021-07-26 06:01] LABS: Eosinophils % 0.3 % (0.1-12.0); Monocytes # 0.7 K/mm3 (0.1-1.0); Monocytes % 4.4 % (1.7-9.3)
[2021-07-26 06:04] LABS: Chloride 93 mmol/L (98-107); Potassium 3.5 mmoL/L (3.5-5.1); Sodium 123 mmol/L (136-145)
[2021-07-26 06:07] LABS: Alanine Aminotransferase 17 U/L (12-78); Albumin Level 2.3 g/dl (3.5-5.0); Albumin/Globulin Ratio 0.9 (1.1-1.8); Alkaline Phosphatase 67 U/L (38-126); Anion Gap 8.5 mEq/L (5-15); Aspartate Amino Transferase 22 U/L (14-36); Bilirubin,Total 0.3 mg/dl (0.2-1.3); Blood Urea Nitrogen 12 mg/dl (7-17); Calcium 7.5 mg/dl (8.4-10.2); Carbon Dioxide 25 mmol/L (22.0-30.0); Creatinine Clearance Estimated 47 mL/min (50-200); Estimated Glomerular Filt Rate 97 ml/min (>60); GFR (African American) 118 ML/MIN (>60); Globulin 2.6 g/dL (1.3-3.2); Glucose 135 mg/dl (74-100); Magnesium 1.9 mg/dl (1.6-2.3); Total Protein,Serum 4.9 g/dl (6.3-8.2)
[2021-07-26 06:08] LABS: Basophils % 0.2 % (0.1-2.0); Hematocrit 32.2 % (37.0-47.0); Lymphocytes # 0.8 K/mm3 (0.7-4.5); Mean Corpuscular HGB Conc 32.3 g/dL (31.8-35.4); Mean Corpuscular Hemoglobin 29.7 pg (27.0-31.2); Mean Platelet Volume 7.4 fl (7.4-10.4); Neutrophils # 14.2 K/mm3 (1.8-7.8); Platelet Count 210 K/mm3 (142-424); Red Blood Count 3.51 M/mm3 (4.20-5.40); Red Cell Distribution Width 13.9 % (11.5-17.5); White Blood Count 15.8 K/mm3 (4.8-10.8)
[2021-07-26 06:10] LABS: Hemoglobin 10.4 g/dL (12.2-16.2)
[2021-07-26 06:11] LABS: MANUAL DIFFERENTIAL MANUAL DIFFERENTIAL (MANUAL DIFF)
[2021-07-26 06:46] LABS: Lymphocytes % 8 % (10-50); Monocytes % 1 % (2-9); Neutrophils % 86 % (42-76); Platelet Estimate Normal; RBC Morphology Normal; Total Cells Counted 100
[2021-07-26 07:26] VITALS: BP 122/63; PULSE 66; RESP 18; TEMP 36.6; O2SAT 98
--- NOTE | 2021-07-26 07:46 | HMH.ACPN2 ---
Internal Medicine - PN: Subj *Date: 07/26/21 *Time: 07:46 Interval history: Overall patient feels better. Is eating breakfast and feels like she can handle her food without nausea or vomiting. Is pleasant, talkative, denies pain. Exam Vital signs and Labs for Last 24 Hours: Temp Pulse Resp BP Pulse Ox 97.8 F 66 18 122/63 98 07/26/21 07:26 07/26/21 07:26 07/26/21 07:26 07/26/21 07:26 07/26/21 07:26 Laboratory Results - last 24 hr 07/25/21 11:00: WBC 23.9 H*, RBC 4.48, Hgb 13.5, Hct 41.3, MCV 92.1, MCH 30.2, MCHC 32.8, RDW 13.8, Plt Count 378, MPV 7.4, Neut % (Auto) 92.8 H, Lymph % (Auto) 3.6 L, [place] % (Auto) 2.9, Eos % (Auto) 0.5, Baso % (Auto) 0.2, Neut # (Auto) 22.2 H, Lymph # (Auto) 0.9, [place] # (Auto) 0.7, Eos # (Auto) 0.1, Baso # (Auto) 0.1, Total Counted 100, Neutrophils % (Manual) 97 H, Lymphocytes % (Manual) 2 L, Monocytes % (Manual) 1 L, Platelet Estimate Normal, Hypochromasia 1+, Macrocytosis 1+ 07/25/21 11:00: Sodium 123 L, Potassium 4.2, Chloride 88 L, Carbon Dioxide 27, Anion Gap 12.2, BUN 18 H, Creatinine 0.80, Estimated Creat Clear 45, Estimated GFR 70, Est GFR ( Amer) 85, Glucose 150 H, Calcium 9.3, Magnesium 1.5 L, Total Bilirubin 0.7, AST 37 H, ALT 22, Alkaline Phosphatase 91, Total Protein 6.5, Albumin 3.4 L, Globulin 3.1, Albumin/Globulin Ratio 1.1 07/25/21 11:00: Lactate 1.8 07/25/21 11:00: PT 10.7, INR 0.94, APTT 28.2 07/25/21 11:00: Total Bilirubin 0.7 07/25/21 11:32: SARS-CoV-2 (PCR) Not detected, Influenza A Untype (PCR) Not detected, Influenza Type B (PCR) Not detected 07/25/21 21:16: POC Glucose 134 H 07/25/21 21:30: Urine Color Yellow, Urine Appearance Sl cloudy, Urine pH 6.5, Ur Specific [place] 1.015, Urine Protein 1+, Urine Glucose (UA) Negative, Urine Ketones Negative, Urine Blood 2+, Urine Nitrate Positive, Urine Bilirubin Negative, Urine Urobilinogen 0.2, Ur Leukocyte Esterase Trace, Urine RBC 10-20, Urine WBC 20-50, Ur Squamous Epith Cells Occasional, Urine Bacteria Trace 07/26/21 05:21: POC Glucose 141 H 07/26/21 05:49: WBC 15.8 H D, RBC 3.51 L, Hgb 10.4 L D, Hct 32.2 L, MCV 92.0, MCH 29.7, MCHC 32.3, RDW 13.9, Plt Count 210 D, MPV 7.4, Neut % (Auto) 90.0 H, Lymph % (Auto) 5.0 L, [place] % (Auto) 4.4, Eos % (Auto) 0.3, Baso % (Auto) 0.2, Neut # (Auto) 14.2 H, Lymph # (Auto) 0.8, [place] # (Auto) 0.7, Eos # (Auto) 0.0, Baso # (Auto) 0.0, Total Counted 100, Neutrophils % (Manual) 86 H, Band Neutrophils % 5.0, Lymphocytes % (Manual) 8 L, Monocytes % (Manual) 1 L, Platelet Estimate Normal, RBC Morphology Normal 07/26/21 05:49: Sodium 123 L, Potassium 3.5, Chloride 93 L, Carbon Dioxide 25, Anion Gap 8.5, BUN 12 D, Creatinine 0.60 D, Estimated Creat Clear 47, Estimated GFR 97, Est GFR ( Amer) 118 D, Glucose 135 H, Calcium 7.5 L, Magnesium 1.9 D, Total Bilirubin 0.3, AST 22 D, ALT 17, Alkaline Phosphatase 67, Total Protein 4.9 L, Albumin 2.3 L D, Globulin 2.6, Albumin/Globulin Ratio 0.9 L I & O for Last 24 hours: Intake & Output 07/23/21 07/24/21 07/25/21 07/26/21 11:59 11:59 11:59 11:59 Intake Total 480 / 480 Output Total 500 / 500 Balance - Weight 130 lb 135 lb Microbiology Reports for the Last 24 Hours: Microbiology 07/25/21 16:54 Sputum - Expectorated Sputum Gram Stain - Final Narrative: Patient is pleasant, alert, lungs clear, heart rate regular. Abdomen soft, Rebolledo catheter draining clear yellow urine. She appears mildly dehydrated still with poor skin turgor and dry mouth but she has no edema. Neurologic exam intact except for hard of hearing status Assessment and Plan (1) Hyponatremia Status: Acute Category: Medical Code(s): E87.1 - Hypo-osmolality and hyponatremia (2) Hypochloremia Status: Acute Category: Medical Code(s): E87.8 - Other disorders of electrolyte and fluid balance, not elsewhere classified (3) UTI (urinary tract infection) Status: Acute Category: Medical Code(s): N39.0 - Urinary tract infection, s
--- NOTE | 2021-07-26 09:52 | HMH.PTEV ---
Physical Therapy Evaluation Rehab PT IP Evaluation Start: 07/26/21 07:45 Freq: ONCE Status: Active Protocol: Document 07/26/21 09:48 JOANNE (Rec: 07/26/21 09:52 JOANNE [id number]) Subjective/History History History This is the initial IP PT evalaution for Jing Montemayor. Pt is a 76 y/o female w/ recent dx and hospitalization for COVID. Pt returned home and recently began having continuing decline in function . Pt was direct admit from PCP office for weakness, functional decline, and respiratory issues. Subjective Subjective Pt rpeorts she lives in [facility], was living alone, but since hospitalization she has had 24 hr supervision. Rehab PT IP Eval Objective Appearance Patient Behavior Appropriate,Cooperative, Fatigued Patient Orientation Person,Place,Time Difficulty following instructions none Speech Pattern Clear,Appropriate,Soft-Spoken Ambulation Patient Able to Ambulate Yes Ambulation Observation IP General Gait Pattern Observation Shuffling Step Ambulation Distance (feet) 5 Ambulation Assistive Device None Ambulation Ability Contact Guard/Hand Hold Balance Ability to Arise Able, uses arms to help Sitting Balance Steady, safe Standing Balance Steady, wide stance Dynamic Sitting Balance Ability Good Dynamic Standing Balance Ability Fair Transfers Bed Transfer Ability Supervision/Stand by,Contact Guard/Hand Hold Chair Transfer Ability Supervision/Stand by Sit to Stand Bed Transfer Ability Contact Guard/Hand Hold Sit to Stand Chair Transfer Ability Contact Guard/Hand Hold ROM All Extremities PT ROM Status WFL MMT All Extremities PT MMT WFL Rehab PT IP prob,goals,plan Problems Date of Evaluation: 07/26/21 PT IP Problems Transfers,Gait,Self care, Safety Rehab Potential Rehab Potential Good Equipment Needs Assistive Devices Rolling / Wheeled Walker Plan PT Intervention Plan Transfers,Gait,Balance,Self care,Safety,Therapeutic Exercise PT Plan Frequency BID Duration LOS Discharge Goals Bed Transfer Ability S
--- NOTE | 2021-07-26 10:23 | HMH.OTEV ---
OT Inpatient Evaluation Rehab OT IP Evaluation Start: 07/26/21 07:45 Freq: ONCE Status: Complete Protocol: Document 07/26/21 10:11 IRIS (Rec: 07/26/21 10:23 IRIS [id number]) Rehab OT IP Assessment Subjective History Ms. Farr is a 76 yr old female seen initially in my office today for follow-up from recent Covid hospitalization. She was accompanied by her daughter. Concern however this morning for being hypotensive at home with systolics in the 80s. Family reports she has been doing better since getting home from extended hospitalization for Covid pneumonia. Is on Bactrim for bacterial pneumonia. Takes several medications for blood pressure at home including carvedilol twice daily, nifedipine daily, clonidine 3 times a day, and losartan every morning. Her blood pressures have gradually decreased over the past week with their lowest today in the office. Normal blood pressure for her is systolic less than 120 over less than 65. She has a known history of carotid artery stenosis with total occlusion of the right side. [employer] has been working with her. Patient reported to the office today saying she was feeling more weak and fatigued. Denied any chest pain, worsening shortness of breath (on baseline 2 L nasal cannula ). Febrile this morning at home with temperature of 100.8 . No nausea, vomiting, diarrhea. No swelling in her legs. No oumar confusion Directly admitted from the office due to hypotension and fever concerning for worsening
[2021-07-26 11:33] LABS: POC Glucose,Bedside 123 (70-110)
[2021-07-26 14:09] VITALS: BMI 23.8
--- NOTE | 2021-07-26 14:30 | PC.NURSE ---
Pt noted to have labored breathing while sitting in chair. Pt's family member present visiting and states that pt has been making those noises when breathing since admission. O2 sats reported to be great ( pt is on 2l NC). Pt also had a significant amt of nose bleed x 1 around noon that abruptly stopped on its own. Pt denied not normally having issues with nose bleeds in the past. Mild crackles noted in bilat bases when lungs auscultated.
--- NOTE | 2021-07-26 14:50 | PC.NURSE ---
Rebolledo cath discontinued. Tolerated well. 2000mls dark yellow/jeremiah urine noted in drainage bag. Pt assisted back to bed per her request (standby assist)...
[2021-07-26 15:50] VITALS: BP 135/59; PULSE 77; RESP 18; TEMP 36.6; O2SAT 98
--- NOTE | 2021-07-26 16:10 | PC.NURSE ---
Pt sleeping soundly at this time. Pt's family member at bs.
--- NOTE | 2021-07-26 16:17 | PC.NURSE ---
Notified of pt's status, Phone order received to give Lasix 40mg IV now. R/V
[2021-07-26 20:00] VITALS: BP 115/56; PULSE 78; RESP 16; TEMP 36.6; O2SAT 98
[2021-07-26 20:26] LABS: POC Glucose,Bedside 334 (70-110)
[2021-07-26 21:51] LABS: POC Glucose,Bedside 299 (70-110)
[2021-07-27] VITALS (7 sets, daily range): BP systolic 126–156; BP diastolic 60–78; PULSE 69–86; RESP 16–21; TEMP 36.5–36.9; O2SAT 91–99; BMI 24.5
--- NOTE | 2021-07-27 03:03 | PC.NURSE ---
A&OX4. TOLERATING 2LNC. PT HAS HAD NO C/O SOA. SHE HAS HAD A DRY INTERMITTENT COUGH. PT HAS NOT HAD ANY OTHER C/O THUS FAR THIS SHIFT. PT HAS SLEPT MAJORITY OF NIGHT. VSS WILL CONTINUE TO MONITOR.
[2021-07-27 05:37] LABS: POC Glucose,Bedside 164 (70-110)
[2021-07-27 06:20] LABS: Basophils % 0.1 % (0.1-2.0); Eosinophils # 0.1 K/mm3 (0.0-0.4); Eosinophils % 0.6 % (0.1-12.0); Hematocrit 30.1 % (37.0-47.0); Hemoglobin 9.7 g/dL (12.2-16.2); Lymphocytes # 0.8 K/mm3 (0.7-4.5); Lymphocytes % 7.4 % (10-50); Mean Corpuscular HGB Conc 32.1 g/dL (31.8-35.4); Mean Corpuscular Hemoglobin 29.5 pg (27.0-31.2); Mean Corpuscular Volume 91.9 fl (81-99); Mean Platelet Volume 7.4 fl (7.4-10.4); Monocytes # 0.3 K/mm3 (0.1-1.0); Neutrophils % 88.8 % (37.0-80.0); Platelet Count 163 K/mm3 (142-424); Red Blood Count 3.27 M/mm3 (4.20-5.40); Red Cell Distribution Width 13.7 % (11.5-17.5); White Blood Count 11.2 K/mm3 (4.8-10.8)
[2021-07-27 06:23] LABS: MANUAL DIFFERENTIAL MANUAL DIFFERENTIAL (MANUAL DIFF)
[2021-07-27 06:25] LABS: Chloride 96 mmol/L (98-107)
[2021-07-27 06:26] LABS: Sodium 128 mmol/L (136-145)
[2021-07-27 06:29] LABS: Anion Gap 5.8 mEq/L (5-15); Blood Urea Nitrogen 12 mg/dl (7-17); Calcium 7.3 mg/dl (8.4-10.2); Carbon Dioxide 29 mmol/L (22.0-30.0); Creatinine Clearance Estimated 48 mL/min (50-200); Estimated Glomerular Filt Rate 156 ml/min (>60); GFR (African American) 188 ML/MIN (>60); Glucose 146 mg/dl (74-100)
[2021-07-27 06:32] LABS: Potassium 2.8 mmoL/L (3.5-5.1)
--- NOTE | 2021-07-27 06:37 | PC.NURSE ---
NOTIFIED OF CRITICAL LAB POTASSIUM 2.8. VERIFIED NAME, , ROOM #-NOTIFIED MD CORTES.
[2021-07-27 07:38] LABS: Lymphocytes % 9 % (10-50); Monocytes % 2 % (2-9); Neutrophils % 89 % (42-76); Platelet Estimate Normal; RBC Morphology Normal; Total Cells Counted 100
--- NOTE | 2021-07-27 08:41 | HMH.ACPN2 ---
Internal Medicine - PN: Subj *Date: 07/27/21 *Time: 08:42 Interval history: Patient had uneventful afternoon and evening. Had some dyspnea, evidence of fluid overload on chest x-ray and Lasix was given which resulted in a very brisk diuresis. She feels much better vis-?-vis breathing and her oxygen requirement is back to baseline. This morning she was hypokalemic, this is been replaced orally. Patient is feeling much more energetic and wishes to be discharged home. Exam Vital signs and Labs for Last 24 Hours: Temp Pulse Resp BP Pulse Ox 97.7 F 72 16 144/78 H 99 07/27/21 03:33 07/27/21 03:33 07/27/21 03:33 07/27/21 03:33 07/27/21 03:33 Laboratory Results - last 24 hr 07/26/21 11:21: POC Glucose 123 H 07/26/21 16:46: POC Glucose 299 H 07/26/21 20:16: POC Glucose 334 H* 07/27/21 05:13: POC Glucose 164 H 07/27/21 05:41: WBC 11.2 H D, RBC 3.27 L, Hgb 9.7 L, Hct 30.1 L, MCV 91.9, MCH 29.5, MCHC 32.1, RDW 13.7, Plt Count 163, MPV 7.4, Neut % (Auto) 88.8 H, Lymph % (Auto) 7.4 L, [place] % (Auto) 3.0, Eos % (Auto) 0.6, Baso % (Auto) 0.1, Neut # (Auto) 10.0 H, Lymph # (Auto) 0.8, [place] # (Auto) 0.3, Eos # (Auto) 0.1, Baso # (Auto) 0.0, Total Counted 100, Neutrophils % (Manual) 89 H, Lymphocytes % (Manual) 9 L, Monocytes % (Manual) 2, Platelet Estimate Normal, RBC Morphology Normal 07/27/21 05:41: Sodium 128 L, Potassium 2.8 L*, Chloride 96 L, Carbon Dioxide 29, Anion Gap 5.8, BUN 12, Creatinine 0.40 L D, Estimated Creat Clear 48, Estimated GFR 156, Est GFR ( Amer) 188 D, Glucose 146 H, Calcium 7.3 L I & O for Last 24 hours: Intake & Output 07/24/21 07/25/21 07/26/21 07/27/21 11:59 11:59 11:59 11:59 Intake Total 480 / 480 600 / 600 Output Total 500 / 500 Balance - / 20 600 / 600 Weight 130 lb 135 lb 138 lb 11.2 oz Microbiology Reports for the Last 24 Hours: Microbiology 07/25/21 13:24 Urine,Random Urine Culture - Final Escherichia coli Narrative: Patient is alert, sitting up in a chair, breathing easily on her oxygen. She does still appear to be fatigued. Lungs have better air entry bilaterally, minimal rhonchi, which is her baseline post her Covid pneumonitis several weeks ago. Abdomen nontender. Blood pressure is improving and into the 130 range systolically. Heart rate regular without murmurs. No edema noted. Oropharynx still dry but clear. Assessment and Plan (1) Hyponatremia Status: Acute Category: Medical Code(s): E87.1 - Hypo-osmolality and hyponatremia (2) Hypochloremia Status: Acute Category: Medical Code(s): E87.8 - Other disorders of electrolyte and fluid balance, not elsewhere classified (3) UTI (urinary tract infection) Status: Acute Category: Medical Code(s): N39.0 - Urinary tract infection, site not specified (4) Sepsis Status: Acute Category: Medical Code(s): A41.9 - Sepsis, unspecified organism (5) Pneumonia Status: Acute Category: Medical Code(s): J18.9 - Pneumonia, unspecified organism (6) Post-acute sequelae of COVID-19 (PASC) Status: Acute Category: Medical Code(s): U09.9 - Post COVID-19 condition, unspecified (7) Type 2 diabetes mellitus Status: Acute Qualifiers: Diabetes mellitus detention insulin use: without roasterman use Diabetes mellitus complication status: with hyperglycemia Qualified Code(s): E11.65 - Type 2 diabetes mellitus with hyperglycemia Category: Medical Code(s): E11.9 - Type 2 diabetes mellitus without complications (8) Hypokalemia Status: Acute Category: Medical Code(s): E87.6 - Hypokalemia - Assessment and plan all Dx Assessment and Plan for all problems:: Patient is improving. Potassium replaced today. We will recheck this this afternoon. If patient eats well and can move about the room by herself we will consider discharge home but I probably will hold her over till tomorrow to make sure her electrolytes are stable and th
[2021-07-27 13:12] LABS: Chloride 96 mmol/L (98-107); Potassium 4.4 mmoL/L (3.5-5.1); Sodium 128 mmol/L (136-145)
[2021-07-27 13:15] LABS: Blood Urea Nitrogen 11 mg/dl (7-17); Creatinine Clearance Estimated 48 mL/min (50-200); Estimated Glomerular Filt Rate 156 ml/min (>60); GFR (African American) 188 ML/MIN (>60)
[2021-07-27 13:16] LABS: Anion Gap 10.4 mEq/L (5-15); Calcium 7.7 mg/dl (8.4-10.2); Carbon Dioxide 26 mmol/L (22.0-30.0); Glucose 220 mg/dl (74-100)
--- NOTE | 2021-07-27 19:02 | PC.NURSE ---
Dr. Stevens ordered 0.5 bottle of mag citrate. Pt still needs to have a BM. No acute changes. VSS. Alert and oriented x 4. Remains on 2 L NC.
[2021-07-27 20:57] LABS: POC Glucose,Bedside 275 (70-110)
[2021-07-28] VITALS: BP 126/67; PULSE 75; PULSE 80; RESP 12; TEMP 36.6; O2SAT 94
[2021-07-28 03:25] VITALS: BP 148/74; PULSE 77; RESP 14; TEMP 36.8; O2SAT 92
--- NOTE | 2021-07-28 03:33 | PC.NURSE ---
pt has rested well this shift w/ no acute changes. a&ox4. vss. remains on 2L NC w/ no c/o of soa. pt reports she had a large BM earlier this shift.
[2021-07-28 05:02] VITALS: BMI 24.9
[2021-07-28 05:36] LABS: POC Glucose,Bedside 124 (70-110)
[2021-07-28 06:05] LABS: Chloride 99 mmol/L (98-107); Potassium 4.3 mmoL/L (3.5-5.1); Sodium 128 mmol/L (136-145)
[2021-07-28 06:06] LABS: Basophils % 0.1 % (0.1-2.0); Eosinophils # 0.1 K/mm3 (0.0-0.4); Eosinophils % 0.7 % (0.1-12.0); Hematocrit 32.8 % (37.0-47.0); Hemoglobin 10.5 g/dL (12.2-16.2); Lymphocytes # 1.2 K/mm3 (0.7-4.5); Lymphocytes % 11.2 % (10-50); Mean Corpuscular HGB Conc 31.9 g/dL (31.8-35.4); Mean Corpuscular Hemoglobin 29.3 pg (27.0-31.2); Mean Platelet Volume 7.4 fl (7.4-10.4); Monocytes # 0.4 K/mm3 (0.1-1.0); Monocytes % 3.5 % (1.7-9.3); Neutrophils # 8.9 K/mm3 (1.8-7.8); Neutrophils % 84.4 % (37.0-80.0); Platelet Count 190 K/mm3 (142-424); Red Blood Count 3.56 M/mm3 (4.20-5.40); Red Cell Distribution Width 13.8 % (11.5-17.5); White Blood Count 10.6 K/mm3 (4.8-10.8)
[2021-07-28 06:08] LABS: Anion Gap 6.3 mEq/L (5-15); Blood Urea Nitrogen 8 mg/dl (7-17); Carbon Dioxide 27 mmol/L (22.0-30.0); Creatinine Clearance Estimated 49 mL/min (50-200); Estimated Glomerular Filt Rate 156 ml/min (>60); GFR (African American) 188 ML/MIN (>60)
[2021-07-28 06:09] LABS: Calcium 7.7 mg/dl (8.4-10.2); Glucose 124 mg/dl (74-100)
--- NOTE | 2021-07-28 07:35 | HMH.DCSUM ---
General - General Admission date:: 07/25/21 Discharge date: 07/28/21 HPI HPI: Ms. Farr is a 76 yr old female seen initially in my office today for follow-up from recent Covid hospitalization. She was accompanied by her daughter. Concern however this morning for being hypotensive at home with systolics in the 80s. Family reports she has been doing better since getting home from extended hospitalization for Covid pneumonia. Is on Bactrim for bacterial pneumonia. Takes several medications for blood pressure at home including carvedilol twice daily, nifedipine daily, clonidine 3 times a day, and losartan every morning. Her blood pressures have gradually decreased over the past week with their lowest today in the office. Normal blood pressure for her is systolic less than 120 over less than 65. She has a known history of carotid artery stenosis with total occlusion of the right side. [employer] has been working with her. Patient reported to the office today saying she was feeling more weak and fatigued. Denied any chest pain, worsening shortness of breath (on baseline 2 L nasal cannula). Febrile this morning at home with temperature of 100.8. No nausea, vomiting, diarrhea. No swelling in her legs. No oumar confusion Directly admitted from the office due to hypotension and fever concerning for worsening infection/secondary bacterial infection after COVID pneumonia. Hospital Course Hospital Course: Ms. Montemayor is a 76-year-old female who presented to the outpatient office this morning hypotensive, with concern for UTI and post Covid condition. Directly admitted for sepsis. Noted to have elevated white cell count, concern for UTI, subacute hypoxemic respiratory failure, hyponatremia, hypochloremia, and hypotension. Hospital course as follows: Hypotension -Held antihypertensive medications. Change to regimen. Responded to fluid resuscitation. Blood pressure better controlled and within goal range during admission. We will plan to discharge on Lasix, nifedipine, carvedilol. Will hold losartan and clonidine. Reevaluate their use at follow-up as an outpatient. UTI/sepsis - Cultures obtained including blood cultures, urine culture, sputum culture. Urine positive for E. coli sensitive to fluoroquinolones. Transition to oral medication to complete course. - Was already on steroids for previous infection/hospitalization. Continue taper during admission. DM - sliding scale insulin with fingersticks before meals and at bedtime for diabetes coverage during hospitalization. Examined on day of discharge. Medically stable for discharge home to complete antibiotic course. Objective Vital signs: Temp Pulse Resp BP Pulse Ox 98.2 F 77 14 148/74 H 92 L 07/28/21 03:25 07/28/21 03:25 07/28/21 03:25 07/28/21 03:25 07/28/21 03:25 Narrative: - Constitutional NAD, chronically ill appearing, cooperative - *Routine HEENT Exam Head: Present: normocephalic Eye: Present: EOMI, PERRL ENT: Present: mucous membranes moist - *Routine Neck Exam Present: supple. Absent: lymphadenopathy - *Routine Respiratory Exam Present: CTAB, Absent: wheezes - *Routine Cardiovascular Exam Present: RRR - *Routine Abdominal Exam Present: soft, normoactive bowel sounds. Absent: tenderness - *Routine Extremities Exam Absent: cyanosis, clubbing Present: trace BLE edema - *Routine Skin Exam Present: warm. Absent: rash - *Routine Neurological Exam Present: alert, oriented X3 Results Labs on day of discharge: Labs from last 24 hours 07/28/21 07/28/21 07/28/21 05:31 05:31 05:12 WBC 10.6 RBC 3.56 L Hgb 10.5 L Hct 32.8 L MCV 92.0 MCH 29.3 MCHC 31.9 RDW 13.8 Plt Count 190 MPV 7.4 Neut % (Auto) 84.4 H Lymph % (Auto) 11.2 [place] % (Auto) 3.5 Eos % (Auto) 0.7 Baso % (Auto) 0.1 Neut # (Auto) 8.9 H Lymph # (Auto) 1.2 [place] # (Auto) 0.4
[2021-07-28 08:00] VITALS: BP 130/88; PULSE 74; RESP 20; O2SAT 97
[2021-07-28 08:14] VITALS: TEMP 36.5
--- NOTE | 2021-07-28 09:50 | HMH.ACPN ---
Internal Medicine - PN: Subj *Date: 07/28/21 *Time: 09:50 Exam Vital signs and Labs for Last 24 Hours: Temp Pulse Resp BP Pulse Ox 97.7 F 74 20 130/88 97 07/28/21 08:14 07/28/21 08:00 07/28/21 08:00 07/28/21 08:00 07/28/21 08:00 Laboratory Results - last 24 hr 07/27/21 12:47: Sodium 128 L, Potassium 4.4 D, Chloride 96 L, Carbon Dioxide 26, Anion Gap 10.4, BUN 11, Creatinine 0.40 L, Estimated Creat Clear 48, Estimated GFR 156, Est GFR ( Amer) 188, Glucose 220 H D, Calcium 7.7 L 07/27/21 20:11: POC Glucose 275 H 07/28/21 05:12: POC Glucose 124 H 07/28/21 05:31: WBC 10.6, RBC 3.56 L, Hgb 10.5 L, Hct 32.8 L, MCV 92.0, MCH 29.3, MCHC 31.9, RDW 13.8, Plt Count 190, MPV 7.4, Neut % (Auto) 84.4 H, Lymph % (Auto) 11.2, [place] % (Auto) 3.5, Eos % (Auto) 0.7, Baso % (Auto) 0.1, Neut # (Auto) 8.9 H, Lymph # (Auto) 1.2, Sampson # (Auto) 0.4, Eos # (Auto) 0.1, Baso # (Auto) 0.0 07/28/21 05:31: Sodium 128 L, Potassium 4.3, Chloride 99, Carbon Dioxide 27, Anion Gap 6.3, BUN 8 D, Creatinine 0.40 L, Estimated Creat Clear 49, Estimated GFR 156, Est GFR ( Amer) 188, Glucose 124 H D, Calcium 7.7 L I & O for Last 24 hours: Intake & Output 07/25/21 07/26/21 07/27/21 07/28/21 23:59 23:59 23:59 23:59 Intake Total 360 / 360 720 / 720 360 / 360 360 / 360 Output Total 500 / 500 0 / 0 Balance 360 / -140 220 / 220 360 / 360 360 / 360 Weight 58.967 kg 61 kg 62.913 kg 63.866 kg Microbiology Reports for the Last 24 Hours: Microbiology 07/25/21 16:54 Sputum - Expectorated Sputum Gram Stain - Final 07/25/21 16:54 Sputum - Expectorated Sputum Sputum Culture - Final Normal Respiratory Rebecca 07/25/21 11:00 Blood Blood Culture - Preliminary NO GROWTH AFTER 48 HOURS 07/25/21 11:00 Blood Blood Culture - Preliminary NO GROWTH AFTER 48 HOURS 07/25/21 13:24 Urine,Random Urine Culture - Final Escherichia coli Assessment and Plan (1) Hyponatremia Status: Acute Category: Medical Code(s): E87.1 - Hypo-osmolality and hyponatremia (2) Hypochloremia Status: Acute Category: Medical Code(s): E87.8 - Other disorders of electrolyte and fluid balance, not elsewhere classified (3) UTI (urinary tract infection) Status: Acute Category: Medical Code(s): N39.0 - Urinary tract infection, site not specified (4) Sepsis Status: Acute Category: Medical Code(s): A41.9 - Sepsis, unspecified organism (5) Pneumonia Status: Acute Category: Medical Code(s): J18.9 - Pneumonia, unspecified organism (6) Post-acute sequelae of COVID-19 (PASC) Status: Acute Category: Medical Code(s): U09.9 - Post COVID-19 condition, unspecified (7) Type 2 diabetes mellitus Status: Acute Qualifiers: Diabetes mellitus nursing coordinator insulin use: without usp use Diabetes mellitus complication status: with hyperglycemia Qualified Code(s): E11.65 - Type 2 diabetes mellitus with hyperglycemia Category: Medical Code(s): E11.9 - Type 2 diabetes mellitus without complications (8) Hypokalemia Status: Acute Category: Medical Code(s): E87.6 - Hypokalemia The patient's infection will respond to the chosen ABx?: Yes Is the patient receiving the right drug, dose, and route?: Yes Could a more targeted ABx be ordered?: No (E. COLI SENSITIVE TO LEVAQUIN)
--- NOTE | 2021-07-28 10:08 | SW/DCPLANNER ---
The plan is for this patient to discharge home today. Patient currently receives services from [facility]. Patient information and order to resumes services has been faxed to Supriya with [facility].
[2021-07-28 10:19] LABS: POC Glucose,Bedside 330 (70-110)
[2021-07-28 10:19] LABS: POC Glucose,Bedside 189 (70-110)
== END 2021-07-28 12:00 | disposition home health service (06) ==
PROVIDERS: Internal Medicine Adolescent Medicine; Admitting Provider Internal Medicine Adolescent Medicine; PCP Internal Medicine Adolescent Medicine; Visit Provider Internal Medicine Adolescent Medicine
DX: N39.0 Urinary tract infection, site not specified (principal); U09.9 Post COVID-19 condition, unspecified; J18.9 Pneumonia, unspecified organism; Z79.899 Other long term (current) drug therapy; Z79.84 Long term (current) use of oral hypoglycemic drugs; Z20.822 Contact with and (suspected) exposure to COVID-19; I10 Essential (primary) hypertension; E11.9 Type 2 diabetes mellitus without complications; E87.1 Hypo-osmolality and hyponatremia; A41.9 Sepsis, unspecified organism
CPT/HCPCS: G0378; G0379; 36415; 71046; 80048; 80053; 81001; 82247; 82962; 83605; 83735; 85007; 85025; 85610; 85730; 87040; 87070; 87086; 87088; 87186; 87205; 93005; 97110; 97116; 97161; 97165; 97530; C9803; J1956; U0003; U0005

== ENCOUNTER → 2021-12-08 07:51 | Outpatient (CLI) | payer MEDICARE, MEDICAID, SELFPAY ==
--- NOTE | 2021-12-08 07:54 | CA_ITS ---
FINAL REPORT TECHNIQUE: Grayscale, color Doppler and duplex Doppler ultrasound of the kidneys, aorta and renal arteries was performed. Multiple velocities were measured. CLINICAL HISTORY: HTN,HLD FINDINGS: Aorta velocity: 91.9 cm/sec Right kidney: 11.9 cm. There is mild hydronephrosis. Right intrarenal RI: 0.66 Right renal artery velocity: 297 cm/sec. Right RAR (Renal artery-Aortic Ratio): 3.23 Left Kidney: 8.3 cm. No evidence of hydronephrosis or mass. Left intrarenal RI: 0.63 Left renal artery velocity: 338 cm/sec. Left RAR (Renal Artery-Aortic Ratio): 3.68 IMPRESSION: Greater than 60% left renal artery stenosis. Recommend CTA or catheter directed angiography. Less than 60% right renal artery stenosis. Mild right hydronephrosis. Reviewed, Interpreted and Dictated by Olaf Daniels III, MD Transcribed by Jaycob Montes Authenticated by Olaf Daniels III, MD on 12/08/2021 10:20:40 AM [facility]
== END ==
PROVIDERS: PCP Internal Medicine Adolescent Medicine; Visit Provider Internal Medicine Adolescent Medicine
DX: I10 Essential (primary) hypertension (principal)
CPT/HCPCS: 93976

== ENCOUNTER → 2021-12-21 06:45 | Outpatient (CLI) | payer MEDICARE, MEDICAID, SELFPAY ==
--- NOTE | 2021-12-21 06:46 | NM_ITS ---
APPROVED REPORT Exam: Nuclear Stress Test Indication: chest pain..short of breath..fatigue Patient Location: Outpatient Stress Tech: Tory MAYO Tech:Suly Bond ANNALISA RT(R)(N) Ht: 5 ft 0 in Wt: 137 lbs Bra Size: 36c HR: 67 bpm BP: 208/98 mmHg BSA: 1.59 m2 History: chest pain..short of breath..fatigue Procedure: Patient received a 0.4 mg of intravenous Lexiscan, resting heart rate 67 bpm, resting blood pressure 208/98 mmHg, with Lexiscan maximum heart rate achived was 81 bpm which is Less than 85 % of the maximum predicted heart rate and blood pressure was 200/88 mmHg. Electrocardiogram Resting electrocardiogram shows sinus rhythm nonspecific ST-T changes, with Lexiscan there is less than 1.[address] segment depression noted from the baseline EKG. The EKG portion of the Lexiscan is nondiagnostic. Cardiac Stress and Resting SPECT Images: Cardiac Stress and Resting SPECT images were obtained using technetium 99m Myoview 32.1 mCi stress and 10.78 mCi at rest. Gated SPECT for analysis of segmental wall motion and calculation of the ejection fraction also done. Cardiac stress and rest SPECT images show uniform myocardial activity without segmental perfusion abnormality, computer derived ejection fraction is over 65% with no regional wall motion abnormality, right ventricle is normal size and contractility. Conclusion: 1. The EKG portion of the Lexiscan is nondiagnostic. 2. No scintigraphic evidence of reversible ischemia seen, computer derived ejection fraction is over 65% with no regional wall motion abnormality, right ventricle is normal size and contractility. 3. Normal Lexiscan Myoview study. Electronically signed by : Jonny Flores MD 12/22/2021 10:15:19
--- NOTE | 2021-12-21 06:46 | CA_ITS ---
APPROVED REPORT Exam: Pharmacologic Technologist: Tory Gee, Ht: 5 ft 1 in Wt: 134 lbs BSA: 1.59 m2 HR: 67 bpm BP: 208/98 mmHg Rhythm: NSR, PVC, rightward axis, NS ST abns inferiorly and laterally Medical History Medical History: HTN, Hyperlipidemia, Diabetic ??? Noninsulin Medications: Asa,,,,, Metformin,,,,, Xanax,,,,, Lexapro,,,,, Losartan,,,,, Carvedilol,,,,, Buspirone,,,,, Lipitor,,,,, Albuterol,,,,, Vit D,,,,, Shante,,,,, MiraLAX,,,,, Cardiac Risk Factors: HTN, Hyperlipidemia, Diabetes (non-insulin) Stress Test Details Test: LEXISCAN HR Resting HR: 67 bpm Max Heart Rate (APMHR): 145.024275 bpm Max HR Achieved: 81 bpm Target HR (85% APMHR): 123.723312 bpm % of APMHR: 55.86 Recovery HR: 71 bpm BP Resting BP: 208/98 mmHg Max BP: 216/96 mmHg Recovery BP: 216.0/96.0 mmHg ECG Resting ECG: NSR, PVC, rightward axis, NS ST abns inferiorly and laterally Clinical Exercise duration: 04:01 min Highest Stage Achieved: Stress ECG Conclusion During lexiscan pt experinced malaise, mild head discomfort. No CP noted. Occasional PVC. Mild exaggeration of baseline abns. Non diagnostic lexiscan stress. Myoview images reported separately. Test Summary RECOVERY 05:00 . . 71 . 208/ 98 . . REST 06:36 . . 67 . 208/ 98 . . Stage 1 01:00 . . 72 . . . . Stage 2 01:00 . . 77 . 200/ 88 . . Stage 3 01:00 . . 73 . 194/ 94 . . Stage 4 01:00 . . 69 . . . . Stage 4 01:01 . . 68 . . . Stop exercise at 04:01 RECOVERY 01:00 . . 75 . . . RECOVERY 02:00 . . 71 . . . RECOVERY 03:00 . . 69 . 216/ 96 . . RECOVERY 04:00 . . 71 . 216/ 96 . . RECOVERY 05:00 . . 71 . 208/ 98 . . RECOVERY 06:00 . . 72 . 204/ 90 . . RECOVERY 06:34 . . 70 . / . . Electronically signed by : Jonny Flores MD 12/22/2021 10:13:29
== END ==
PROVIDERS: PCP Internal Medicine Adolescent Medicine; Visit Provider Physician Assistant
DX: E11.9 Type 2 diabetes mellitus without complications (principal); I65.29 Occlusion and stenosis of unspecified carotid artery; I70.1 Atherosclerosis of renal artery; R06.00 Dyspnea, unspecified; R94.31 Abnormal electrocardiogram [ECG] [EKG]; Z98.890 Other specified postprocedural states; Z79.84 Long term (current) use of oral hypoglycemic drugs
CPT/HCPCS: 78452; 93017; A9502; J2785

== ENCOUNTER → 2021-12-23 12:07 | Outpatient (CLI) | payer MEDICARE, MEDICAID, SELFPAY | PROVIDERS: PCP Internal Medicine Adolescent Medicine; Visit Provider Internal Medicine Adolescent Medicine | DX: Z01.812 Encounter for preprocedural laboratory examination (principal); Z11.52 Encounter for screening for COVID-19 | CPT/HCPCS: C9803; U0003; U0005 ==

== ENCOUNTER 2021-12-25 08:59 | Day surgery (SDC) | payer MEDICARE, MEDICAID, SELFPAY ==
[2021-12-25] VITALS (14 sets, daily range): BP systolic 115–161; BP diastolic 46–82; PULSE 47–65; RESP 16–19; TEMP 36.8; O2SAT 92–98; BMI 25.2
--- NOTE | 2021-12-25 | IR_ITS ---
APPROVED REPORT Patient Location: Outpatient Mud Trucker: ANNALISA Donnelly RT (R) PROCEDURES Bilateral selective renal angiography Bare-metal stent deployment to the left renal artery INDICATION Renovascular hypertension, Renal artery stenosis, Abnormal renal duplex Informed consent was obtained prior to the procedure. COMPLICATIONS None Estimated Blood Loss: Less than 10 mls TECHNIQUE 1% lidocaine used to anesthetize the right femoral groin. The right femoral artery was accessed via the Seldinger technique. A 4 Dutch sheath was placed in the right femoral artery. The JR4 catheter was used to selectively intubate each renal artery. At the end of the diagnostic procedure the 4 Dutch sheath was exchanged for a 7 Dutch sheath and therapeutic heparin was administered giving a therapeutic ACT. A short CONNOLLY guide catheter was placed in the left renal artery and a Choice PT extra-support wire was placed distally. Primary stenting could not be performed therefore a 4 mm x 20 mm balloon was used to predilate the stenosis. Following this a 6 mm x 18 mm Herculink stent was deployed at 14 and then 18 ariel reducing the critical stenosis to 0%. At the end of the procedure the apparatus was removed the groin is reprepped closure change sheath was removed and hemostasis was achieved using Perclose device patient was transferred to the postop already in stable condition ANGIOGRAPHIC RESULTS Right renal artery singular and has a long proximal calcified 30% stenosis. The renal parenchyma has an unusual calcified elliptical lesion which extended approximately half the size of the kidney itself. Left renal artery singular and has ostial proximal greater than 90% concentric stenosis IMPRESSION Critical left renal artery stenosis with successful percutaneous revascularization reducing the critical disease to 0% with 1 bare-metal stent Unusual lesion involving the right renal parenchyma which could be still overlapping. PLAN 1. Plavix and aspirin 2. Recommend CT of the abdomen with and without contrast 3. Evaluate for ischemic heart disease based on abnormal renal artery finding 4. Risk factor modification Electronically signed by : Berto Espana MD 12/25/2021 11:42:05
[2021-12-25 09:43] LABS: Basophils # 0.1 K/mm3 (0-0.2); Basophils % 1.2 % (0.1-2.0); Eosinophils # 0.2 K/mm3 (0.0-0.4); Eosinophils % 2.3 % (0.1-12.0); Hematocrit 42.5 % (37.0-47.0); Hemoglobin 13.7 g/dL (12.2-16.2); Lymphocytes # 1.6 K/mm3 (0.7-4.5); Mean Corpuscular HGB Conc 32.2 g/dL (31.8-35.4); Mean Corpuscular Hemoglobin 29.1 pg (27.0-31.2); Mean Corpuscular Volume 90.4 fl (81-99); Mean Platelet Volume 7.6 fl (7.4-10.4); Monocytes # 0.3 K/mm3 (0.1-1.0); Monocytes % 4.3 % (1.7-9.3); Neutrophils # 5.3 K/mm3 (1.8-7.8); Neutrophils % 71.2 % (37.0-80.0); Platelet Count 346 K/mm3 (142-424); Red Blood Count 4.71 M/mm3 (4.20-5.40); Red Cell Distribution Width 14.4 % (11.5-17.5); White Blood Count 7.5 K/mm3 (4.8-10.8)
[2021-12-25 09:48] LABS: Anion Gap 10.9 mEq/L (5-15); Blood Urea Nitrogen 17 mg/dl (7-17); Calcium 10.3 mg/dl (8.4-10.2); Carbon Dioxide 30 mmol/L (22.0-30.0); Chloride 97 mmol/L (98-107); Creatinine Clearance Estimated 47 mL/min (50-200); Estimated Glomerular Filt Rate 97 ml/min (>60); GFR (African American) 118 ML/MIN (>60); Glucose 139 mg/dl (74-100); Potassium 3.9 mmoL/L (3.5-5.1); Sodium 134 mmol/L (136-145)
[2021-12-25 12:34] LABS: CATHL Activated Clotting Time 297 SEC (74-125)
--- NOTE | 2021-12-25 14:44 | HMH.PHACLD ---
Jing Montemayor has received discharge medication counseling on the following medications: PLAVIX (NEW) ASPIRIN CARVEDILOL LOSARTAN ATORVASTATIN PATIENT VERBALIZED UNDERSTANDING AND HAD NO QUESTIONS AT THIS TIME. -ANGELO PACHECO, DONATOD
== END 2021-12-25 15:30 | disposition home or self-care (01) ==
LOC: CATHLAB 09:01
PROVIDERS: PCP Internal Medicine Adolescent Medicine; Visit Provider Internal Medicine
DX: I70.1 Atherosclerosis of renal artery (principal); I77.1 Stricture of artery; Z79.899 Other long term (current) drug therapy; E11.9 Type 2 diabetes mellitus without complications; G45.8 Other transient cerebral ischemic attacks and related syndromes; Z86.16 Personal history of COVID-19; Z79.84 Long term (current) use of oral hypoglycemic drugs; I15.0 Renovascular hypertension
CPT/HCPCS: 36252; 37236; 80048; 85025; 85347; 99152; 99153; C1725; C1760; C1769; C1876; C1894; J1644; Q9967

== ENCOUNTER → 2021-12-28 07:03 | Outpatient (CLI) | payer MEDICARE, MEDICAID, SELFPAY ==
--- NOTE | 2021-12-28 07:03 | CT_ITS ---
FINAL REPORT TECHNIQUE: After the administration of oral and intravenous contrast, axial images were obtained through the abdomen and pelvis by computed tomography. The study was performed with techniques to keep radiation dose as low as reasonably achievable, (ALARA). Individual dose reduction techniques using automated exposure control or adjustment of mA and/or kV according to the patient's size were employed. CLINICAL HISTORY: abnormal renal angio FINDINGS: Abdomen: There is mild chronic scarring the right lung base. The liver parenchyma is homogeneous. There are multiple calcified gallstones within the gallbladder. There is a calcified gallstone within the distal common bile duct which is well seen on images 46 and 47 of series 5. There are calcified granulomas present in the spleen. The pancreas, adrenals and kidneys appear unremarkable. There are dense vascular calcifications seen within the abdominal aorta and iliac vessels. There are dense vascular calcifications of the proximal right renal artery. It is difficult to evaluate the patency of the right renal artery lumen but there appears to be significant stenosis present. There is a renal artery stent on the left which obscures visualization. There is no free fluid or adenopathy. Pelvis: The appendix is not identified. The urinary bladder is unremarkable. There is no free fluid or adenopathy. There is a large amount of stool within the colon. The uterus is partially calcified. IMPRESSION: Multiple calcified gallstones within the gallbladder. Calcified gallstone within the distal common bile duct. Extensive calcification of the proximal right renal artery with probable underlying significant arterial stenosis. Left renal artery stent. Reviewed, Interpreted and Dictated by Ovidio Gaming MD Transcribed by Sarah Cornell Authenticated by Ovidio Gaming MD on 12/28/2021 10:04:55 AM [facility]
== END ==
PROVIDERS: PCP Internal Medicine Adolescent Medicine; Visit Provider Internal Medicine
DX: I70.1 Atherosclerosis of renal artery (principal); R93.89 Abnormal findings on diagnostic imaging of other specified body structures
CPT/HCPCS: 74178; Q9967

== ENCOUNTER → 2022-01-12 14:17 | Outpatient (CLI) | payer MEDICARE, MEDICAID, SELFPAY ==
--- NOTE | 2022-01-12 14:19 | CA_ITS ---
APPROVED REPORT EXAM: Comprehensive 2D, Doppler, and color-flow Echocardiogram Chief Payroll Clerk: Eula Marc RDCS Ht: 5 ft 1 in Wt: 142lbs BSA: 1.63 BP: 130/62 mmHg Indications: MURMUR,H/O CVA,EDEMA,HTN 2D Dimensions LVOT 1.46 cm (M/F) 1.5-2.5 LA Volume 73.60 mL LA Volume Index 45.15 mL/m2 (M/F) 16-34 M-Mode Dimensions RVDd 2.42 cm (0.9-2.6) LA Diam 4.39 cm (1.9-4.0) LVDd 5.43 cm (3.5-5.7) Ao Diam 2.92 cm (2.0-3.7) LVDs 3.77 cm (3.5-5.7) IVSd 0.72 cm (0.6-1.1) PWd 1.10 cm (0.6-1.1) EF (Teich) 57.50% FS 30.60% EDV (Teich) 143.10 mL TAPSE 2.15 (<1.7) ESV (Teich) 60.80 mL LV Diastology E Decel Time 190.00 (160-240 msec) E/A Ratio 0.8 MED E' 5.50 (< 7 cm/sec) E'/MED E' Ratio 13.58 (>14) LAT E' 6.40 (<10 cm/sec) E/LAT E' Ratio 11.67 (>14) Aortic Valve AoV Peak Bethel. 196.00 (50-130 cm/s) AO Peak GR. 15.40 mmHg AO Mean GR. 7.70 (<5 mmHg) AO VTI 46.88 (18-25 cm) Mitral Valve MV E Max Bethel. 75.00 (40-130 cm/s) MV A Velocity 95.00 (40-130 cm/s) E/A Ratio 0.79 MV Decel. Time 190.00 (160-240 ms) MV PHT 56.00 ms Tricuspid Valve TR P. Velocity 289.00 cm/s RAP Estimate 10.00 mmHg RVSP 43.50 mmHg Left Ventricle Left atrium is mildly enlarged, left ventricle is normal size, mild concentric left ventricular hypertrophy, estimated ejection fraction 55% with no regional wall motion abnormality, grade 1 diastolic dysfunction seen without tissue Doppler evidence of raise left atrial pressure. Right Ventricle Right atrium and right ventricle are mildly enlarged with normal contractility. Aortic Valve Aortic valve is minimally thickened and calcified without Doppler evidence of aortic stenosis, there is mild aortic insufficiency. Mitral Valve Mitral valve leaflets are minimally thickened, there is mild mitral regurgitation. Tricuspid Valve Tricuspid grossly normal, there is mild tricuspid regurgitation, calculated right ventricular systolic pressure is 43 mmHg. Pulmonic Valve Pulmonic valve is poorly visualized. Great Vessels Aortic root is normal size. Inferior vena cava is poorly visualized. Pericardium No significant pericardial effusion noted. Conclusion 1. Biatrial enlargement, normal left ventricular size, mild concentric left ventricular hypertrophy, estimated ejection fraction 55% with no regional wall motion abnormality, grade 1 diastolic dysfunction seen without tissue Doppler evidence of raise left atrial pressure. 2. Mildly enlarged right ventricle with normal contractility. 3. Thickened and calcified aortic valve with mild aortic insufficiency. 4. Mild mitral and tricuspid regurgitation, calculated right ventricular systolic pressure is 43 mmHg. 5. No significant pericardial effusion noted. 6. Inferior vena cava is poorly visualized. Electronically signed by : Jonny Flores MD 01/12/2022 17:17:38
== END ==
PROVIDERS: PCP Internal Medicine Adolescent Medicine; Visit Provider Physician Assistant
DX: I65.23 Occlusion and stenosis of bilateral carotid arteries (principal); I70.1 Atherosclerosis of renal artery; R01.1 Cardiac murmur, unspecified; R60.0 Localized edema; Z86.73 Personal history of transient ischemic attack (TIA), and cerebral infarction without residual deficits; Z98.890 Other specified postprocedural states
CPT/HCPCS: 93306

== ENCOUNTER → 2022-01-19 08:24 | Outpatient (CLI) | payer MEDICARE, MEDICAID, SELFPAY ==
--- NOTE | 2022-01-19 08:32 | US_ITS ---
FINAL REPORT CLINICAL HISTORY: RUQ pain FINDINGS: Ultrasound images of the right upper quadrant were obtained. The liver parenchyma is normal in echogenicity. The gallbladder is well visualized and the wall appears normal. There are a multitude of small echogenic shadowing stones in the dependent portion of the gallbladder. The common duct is normal. Limited images of the right kidney are unremarkable. IMPRESSION: Multiple gallstones. Reviewed, Interpreted and Dictated by Ovidio Gaming MD Transcribed by Jaycob Montes Authenticated by Ovidio Gaming MD on 01/19/2022 01:02:44 PM [facility]
[2022-01-19 08:52] LABS: MANUAL DIFFERENTIAL MANUAL DIFFERENTIAL (MANUAL DIFF)
[2022-01-19 09:42] LABS: Basophils # 0.1 K/mm3 (0-0.2); Basophils % 1.3 % (0.1-2.0); Eosinophils # 0.1 K/mm3 (0.0-0.4); Hematocrit 39.9 % (37.0-47.0); Hemoglobin 12.9 g/dL (12.2-16.2); Lymphocytes # 1.3 K/mm3 (0.7-4.5); Lymphocytes % 24.8 % (10-50); Mean Corpuscular HGB Conc 32.4 g/dL (31.8-35.4); Mean Corpuscular Hemoglobin 29.4 pg (27.0-31.2); Mean Corpuscular Volume 90.9 fl (81-99); Mean Platelet Volume 7.2 fl (7.4-10.4); Monocytes # 0.3 K/mm3 (0.1-1.0); Monocytes % 5.1 % (1.7-9.3); Neutrophils # 3.4 K/mm3 (1.8-7.8); Neutrophils % 66.8 % (37.0-80.0); Platelet Count 273 K/mm3 (142-424); Red Blood Count 4.39 M/mm3 (4.20-5.40); Red Cell Distribution Width 14.7 % (11.5-17.5); White Blood Count 5.1 K/mm3 (4.8-10.8)
[2022-01-19 10:17] LABS: Alanine Aminotransferase 51 U/L (12-78); Albumin Level 4.5 g/dl (3.5-5.0); Albumin/Globulin Ratio 1.7 (1.1-1.8); Alkaline Phosphatase 38 U/L (38-126); Amylase 100 U/L (30-110); Anion Gap 11.8 mEq/L (5-15); Aspartate Amino Transferase 41 U/L (14-36); Bilirubin,Total 0.8 mg/dl (0.2-1.3); Blood Urea Nitrogen 16 mg/dl (7-17); Calcium 9.8 mg/dl (8.4-10.2); Carbon Dioxide 31 mmol/L (22.0-30.0); Chloride 96 mmol/L (98-107); Estimated Glomerular Filt Rate 97 ml/min (>60); GFR (African American) 118 ML/MIN (>60); Globulin 2.7 g/dL (1.3-3.2); Glucose 118 mg/dl (74-100); Lipase 257 U/L (23-300); Potassium 4.8 mmoL/L (3.5-5.1); Sodium 134 mmol/L (136-145); Total Protein,Serum 7.2 g/dl (6.3-8.2)
[2022-01-19 11:00] LABS: Eosinophils % 1 % (0-3); Lymphocytes % 32 % (10-50); Monocytes % 7 % (2-9); Neutrophils % 59 % (42-76); Platelet Estimate Normal; RBC Morphology Normal; Total Cells Counted 100
== END ==
PROVIDERS: PCP Internal Medicine Adolescent Medicine; Visit Provider Surgery
DX: K80.10 Calculus of gallbladder with chronic cholecystitis without obstruction (principal); K80.50 Calculus of bile duct without cholangitis or cholecystitis without obstruction
CPT/HCPCS: 36415; 76705; 80053; 82150; 83690; 85007; 85014; 85018; 85048; 85049

== ENCOUNTER → 2022-02-06 10:30 | Outpatient (CLI) | payer MEDICARE, MEDICAID, SELFPAY | PROVIDERS: Visit Provider Surgery | DX: Z01.812 Encounter for preprocedural laboratory examination (principal); Z11.52 Encounter for screening for COVID-19; K80.10 Calculus of gallbladder with chronic cholecystitis without obstruction | CPT/HCPCS: C9803; U0003; U0005 ==

== ENCOUNTER 2022-02-08 07:47 | Day surgery (SDC) | payer MEDICARE, MEDICAID, SELFPAY ==
[2022-02-05 13:24] VITALS: BMI 26.0
[2022-02-08] VITALS (11 sets, daily range): BP systolic 142–174; BP diastolic 68–83; PULSE 60–71; RESP 12–18; TEMP 36.2–43; O2SAT 95–99
--- NOTE | 2022-02-08 08:08 | P.PN_ITS ---
[facility] Anesthesia Checklist - Patient Identification Patient Identification: Arm Band - Structural Data Admitted From: Home Planned Operative Procedure/s: eros Consent for Planned Operative Procedure(s) Verified: Yes - NPO Status Verified Time NPO: 00:00 - Airway Assessment C-Spine Mobility Assessed: Yes TMJ Mobility Assessed: Yes Dentition: Edentulous - Neurological Assessment Level of Consciousness: Awake Hx Seizures: No Numbness or tingling in extremities: No - Anesthesia Plan Anesthesia Risk discussed: Yes Anesthesia Plan: Verified ASA Class: III Anesthesia Type: General [facility] History I have reviewed the patient's past medical history: Yes Medical History: Reports:: Cerebrovascular Accident, Diabetes Mellitus Type 2, Hyperlipidemia, Hypertension, Transient Ischemic Attacks (TIA) Denies:: Cancer, Diabetes Mellitus Type 1, Internal Pacemaker, MRSA, Seizures *Have you ever received a pneumonia vaccine?: Yes *Have you received a flu vaccine this season?: No Other Medical History: Reports: Arthritis Anesthesia experience/problems:: None Laterality Cases: Bilateral: Carotid Endarterectomy Other Surgeries: Yes: Angioplasty, Colonoscopy, , Hysterectomy-Total, Tubal Ligation, Other (arteries in neck expanded). No: Pacemaker Amputation: No Fractures: No - *Social History Last grade of school completed: 7th or 8th Smoking Status: Never smoker Alcohol Intake: never Alcohol Intake Frequency:: other Substance Use Type: denies use *Occupational Status:: retired Housing: house Household Members: other *Travel in the last 8 weeks: None Family Hx:: No significant family history
[2022-02-08 08:16] LABS: POC Glucose,Bedside 132 (70-110)
--- NOTE | 2022-02-08 09:45 | P.OP_ITS ---
Date of procedure: 02/08/22 Pre-op Diagnosis:: Chronic calculus cholecystitis Post-op Diagnosis:: Same Procedure performed:: Laparoscopic cholecystectomy Surgeon:: Honorio Sanford MD MATERIALS MANAGEMENT SUPERVISOR:: Bi Singh Anesthesia: GETA Estimated blood loss (mL): 15 Operative findings:: Dense adhesions between the gallbladder and hepatic flexure of colon Infundibulum controlled with Endoloops (x2) Operative note:: After informed consent was obtained, the patient was taken to the operating room and placed in the supine position. General anesthesia was induced and the abdomen was prepped and draped in a sterile fashion. After infiltration with local anesthetic an infraumbilical incision was made. A Veress needle was placed in position. The abdomen was insufflated. A 5 mm optical trocar was placed in position. Under direct visualization, a 12 mm trocar was placed in the subxiphoid position and 2 additional 5 mm trocars were placed in the right upper quadrant. The gallbladder was elevated up and over the liver margin. Dense adhesions between gallbladder and colon noted. Careful blunt dissection was utilized to separate the gallbladder from both omentum and hepatic flexure of colon. The tissue around the cystic duct was carefully dissected. The infundibulum was severely thickened and the decision was made to proceed with a dome down approach with placement of Endoloops. The cystic artery was controlled with a single clip and harmonic frank. Harmonic frank were then utilized to dissect the gallbladder away from the liver margin. Endoloops were placed over the dome and secured at the infundibulum (x2). The gallbladder was then transected at the infundibulum and placed in a retrieval bag. It was then removed through the subxiphoid trocar site. The right upper quadrant was thoroughly irrigated. No active bleeding or bile leak was noted. Fascia at the subxiphoid trocar site was reapproximated utilizing the NeoClose device. The remaining trocars were removed. All wounds were irrigated and skin was closed with 4-0 Monocryl in a subcuticular fashion. Steri-Strips were applied. The patient's anesthetic agents were reversed and extubation was completed prior to transfer to recovery in stable condition. Condition: stable Disposition: PACU Specimens:: Gallbladder and contents Complications:: No immediate
--- NOTE | 2022-02-08 09:49 | P.PN_ITS ---
[facility] Anesthesia Record Part I Intake, IV Amount: 500 Estimated blood loss (mL): 15 Urine output (mL): 0 Blood Pressure: 142/68 SaO2: 98 Pulse Rate: 60 Respiratory Rate: 12 Temperature: 98.6 F Patient is:: Drowsy, Oral/Nasal airway Stable to PACU at:: 09:48
[2022-02-08 10:17] LABS: POC Glucose,Bedside 170 (70-110)
[2022-02-12 07:35] VITALS: BP 153/74; PULSE 63; TEMP 36.3
--- NOTE | 2022-02-12 07:35 | HMH.ANESII ---
[facility] Anesthesia Record Part II Discharge Time: 10:18 Destination: Surgical Day Care (OP Surgery) PACU nurse assessment reviewed?: Yes Patient Condition:: Good Anesthesia Complications:: None Swallowing reflex intact?: Yes Cyanosis?: No Blood Pressure: 153/74 Pulse Rate: 63 Temperature: 97.4 F Mental Status: Alert & Oriented Pain level:: 0 Nausea and/or vomitting:: None Intake, IV Amount: 0
== END 2022-02-08 10:56 | disposition home or self-care (01) ==
LOC: OR 07:48
PROVIDERS: PCP Internal Medicine Adolescent Medicine; Visit Provider Surgery
PROC: 0FT44ZZ Resection of Gallbladder, Percutaneous Endoscopic Approach (ICD-10-PCS; CPT 47562; principal; 2022-02-08 09:00)
DX: K80.10 Calculus of gallbladder with chronic cholecystitis without obstruction (principal); K66.0 Peritoneal adhesions (postprocedural) (postinfection); E11.9 Type 2 diabetes mellitus without complications; I10 Essential (primary) hypertension; Z86.73 Personal history of transient ischemic attack (TIA), and cerebral infarction without residual deficits; M19.90 Unspecified osteoarthritis, unspecified site; Z79.82 Long term (current) use of aspirin; Z79.899 Other long term (current) drug therapy; Z88.8 Allergy status to other drugs, medicaments and biological substances
CPT/HCPCS: 47562; 82962; 88304; 96374; J2405

== ENCOUNTER → 2022-02-21 10:41 | Outpatient (CLI) | payer MEDICARE, MEDICAID, SELFPAY ==
--- NOTE | 2022-02-21 10:53 | XR_ITS ---
FINAL REPORT CLINICAL HISTORY: OSTEOARTHRITIS; knee pain FINDINGS: Three views of the right knee reveal no evidence of fracture or dislocation. The bony alignment is normal. There are mild degenerative changes. There is no evidence of joint effusion. Meniscal calcifications are seen. There are moderate vascular calcifications. IMPRESSION: Degenerative changes with no acute bony abnormality. Reviewed, Interpreted and Dictated by Olaf Daniels III, MD Transcribed by Loretta Lund Authenticated by Olaf Daniels III, MD on 02/21/2022 12:54:33 PM [facility]
== END ==
PROVIDERS: PCP Internal Medicine Adolescent Medicine; Visit Provider Internal Medicine Adolescent Medicine
DX: M17.11 Unilateral primary osteoarthritis, right knee (principal)
CPT/HCPCS: 73562

== ENCOUNTER → 2022-04-19 09:15 | Outpatient (CLI) | payer MEDICARE, MEDICAID, SELFPAY ==
--- NOTE | 2022-04-19 | CA_ITS ---
FINAL REPORT TECHNIQUE: Color Doppler, duplex Doppler and stapleton scale sonography of the bilateral neck arterial vasculature was performed. Velocities were measured in the carotid arteries. Stenosis evaluation based on the validated velocity criteria. CLINICAL HISTORY: Known R CCA,R ICA occlusion. Left Endarterectomy HTN, HLD, DM FINDINGS: The right common carotid artery and the internal carotid artery is occluded. A mild amount of plaque is present. The right external carotid artery is patent. The right vertebral artery is patent with antegrade flow. The peak systolic velocity of the left common carotid artery is 83 cm/s. The peak systolic velocity of the left internal carotid artery is 132 cm/s and end diastolic velocity 44 cm/s. The ICA/CCA ratio is 2.64. A mild amount of plaque is present. The left external carotid artery is patent.The left vertebral artery is patent with antegrade flow. IMPRESSION: No abnormal increased velocity on the left. Occlusion of the right common carotid and internal carotid arteries. Bilateral patent vertebral arteries with antegrade flow. Reviewed, Interpreted and Dictated by Ovidio Gaming MD Transcribed by Sarah Cornell Authenticated and [facility]
== END ==
PROVIDERS: PCP Internal Medicine Adolescent Medicine; Visit Provider Thoracic Surgery (Cardiothoracic Vascular Surgery)
DX: R42 Dizziness and giddiness (principal)
CPT/HCPCS: 93880

== ENCOUNTER → 2022-07-31 15:25 | Outpatient (CLI) | payer MEDICARE, MEDICAID, SELFPAY ==
--- NOTE | 2022-07-31 15:37 | US_ITS ---
FINAL REPORT CLINICAL HISTORY: THYROID NODULES COMPARISON: 11/03/2020 FINDINGS: THYROID ULTRASOUND Sonographic images of the thyroid was obtained. The right lobe of the thyroid measures 5.3 x 2.5 x 1.9 cm. There is an isoechoic 12 x 8 x 9 mm TI-RADS 3 nodule in the midpole which previously measured 12 x 8 x 10 mm. The left lobe of the thyroid measures 2.3 x 1.5 x 1.1 cm. There is a solid and hypoechoic TI-RADS 4 nodule measuring 9 x 5 x 8 mm in the upper pole that was 9 x 5 x 10 mm. There is also a solid and hypoechoic TI-RADS 4 nodule in the lower pole measuring 6 x 4 x 5 mm and was 4 x 3 x 6 mm. The isthmus measures 3 mm. There is a 16 x 13 x 5 mm solid isoechoic nodule, TI-RADS 3. This previously measured 11 x 11 x 6 mm. IMPRESSION: Overall appearance is similar to the prior. Isthmus nodule is somewhat larger. Recommend additional follow-up in 12 months. Reviewed, Interpreted and Dictated by Olaf Daniels III, MD Transcribed by Sarah Cornell Authenticated and [facility]
--- NOTE | 2022-07-31 15:38 | MM_ITS ---
PROCEDURE INFORMATION: Exam: MG Bilateral Screening 3D Mammography Exam date and time: 07/31/2022 3:46 PM Age: 77 years old Clinical indication: Screening examination. No family history of breast cancer. TECHNIQUE: Imaging protocol: Bilateral Screening tomosynthesis and 2D mammography including computer-aided detection (CAD) when performed. COMPARISON: 1. MG MM DIG SCREENING MAMM BI W/CAD 11/03/2020 8:58 AM 2. MG MM DIG SCREENING MAMM BI W/CAD 08/13/2019 1:14 PM 3. MG DXBI MM Dig mamm BI DX w/CAD 04/17/2018 1:52 PM 4. MG DMSB DIG MAMM-SCREEN EMMA W/CAD 05/14/2017 8:55 AM MG DMSB DIGITAL MAMM-SCREEN BILATERAL 06/05/2012 9:01 AM FINDINGS: MAMMOGRAPHY: Breast composition: There are scattered areas of fibroglandular density. Mass: Stable 1.0 cm oval mass in the right inner lower quadrant, anterior 3rd since 06/05/2012. Architectural distortion: None. Calcifications: No suspicious calcifications. Asymmetric density: None. Skin thickening: None. Axillary adenopathy: None. IMPRESSION: No mammographic evidence of malignancy. Annual screening is recommended unless otherwise clinically indicated. ASSESSMENT: BI-RADS Category 2: Benign
== END ==
PROVIDERS: PCP Internal Medicine Adolescent Medicine; Visit Provider Nurse Practitioner Family
DX: Z12.31 Encounter for screening mammogram for malignant neoplasm of breast (principal); E04.1 Nontoxic single thyroid nodule
CPT/HCPCS: 76536; 77063; 77067

== ENCOUNTER → 2023-01-15 15:14 | Outpatient (CLI) | payer MEDICARE, MEDICAID, SELFPAY ==
--- NOTE | 2023-01-15 15:29 | XR_ITS ---
FINAL REPORT CLINICAL HISTORY: CELLULITIS FINDINGS: Two views of the left tibia-fibula demonstrate no acute fracture or dislocation. There are mild degenerative changes. Vascular calcifications are present. IMPRESSION: No acute process. Reviewed, Interpreted and Dictated by Olaf Daniels III, MD Transcribed by Jaycob Montes Authenticated and [facility]
[2023-01-15 15:32] LABS: Basophils # 0.1 K/mm3 (0-0.2); Basophils % 0.7 % (0.1-2.0); Eosinophils # 0.2 K/mm3 (0.0-0.4); Eosinophils % 2.3 % (0.1-12.0); Hematocrit 39.9 % (37.0-47.0); Lymphocytes # 1.9 K/mm3 (0.7-4.5); Lymphocytes % 27.3 % (10-50); Mean Corpuscular HGB Conc 32.7 g/dL (31.8-35.4); Mean Corpuscular Hemoglobin 28.5 pg (27.0-31.2); Mean Corpuscular Volume 87.1 fl (81-99); Mean Platelet Volume 7.6 fl (7.4-10.4); Monocytes # 0.4 K/mm3 (0.1-1.0); Monocytes % 5.3 % (1.7-9.3); Neutrophils # 4.4 K/mm3 (1.8-7.8); Neutrophils % 64.3 % (37.0-80.0); Platelet Count 318 K/mm3 (142-424); Red Blood Count 4.57 M/mm3 (4.20-5.40); Red Cell Distribution Width 13.6 % (11.5-17.5); White Blood Count 6.8 K/mm3 (4.8-10.8)
[2023-01-15 15:48] LABS: Chloride 95 mmol/L (98-107); Sodium 133 mmol/L (136-145)
[2023-01-15 15:49] LABS: Potassium 3.6 mmoL/L (3.5-5.1)
[2023-01-15 15:51] LABS: Alanine Aminotransferase 24 U/L (12-78); Alkaline Phosphatase 57 U/L (38-126); Aspartate Amino Transferase 39 U/L (14-36); Bilirubin,Total 0.6 mg/dl (0.2-1.3); Blood Urea Nitrogen 21 mg/dl (7-17); Estimated Glomerular Filt Rate 81 ml/min (>60); GFR (African American) 98 ML/MIN (>60)
[2023-01-15 15:52] LABS: Albumin Level 4.5 g/dl (3.5-5.0); Albumin/Globulin Ratio 1.6 (1.1-1.8); Anion Gap 10.6 mEq/L (5-15); Calcium 9.8 mg/dl (8.4-10.2); Carbon Dioxide 31 mmol/L (22.0-30.0); Globulin 2.9 g/dL (1.3-3.2); Glucose 125 mg/dl (74-100); Total Protein,Serum 7.4 g/dl (6.3-8.2)
[2023-01-15 16:14] LABS: Erythrocyte Sedimentation Rate 17 mm/hr (0-30)
== END ==
PROVIDERS: PCP Internal Medicine Adolescent Medicine; Visit Provider Nurse Practitioner Family
DX: L03.116 Cellulitis of left lower limb (principal)
CPT/HCPCS: 36415; 73590; 80053; 85025; 85651

== ENCOUNTER → 2023-04-04 12:47 | Outpatient (CLI) | payer MEDICARE, SELFPAY ==
--- NOTE | 2023-04-04 13:10 | CA_ITS ---
FINAL REPORT TECHNIQUE: Color Doppler, duplex Doppler and stapleton scale sonography of the bilateral neck arterial vasculature was performed. Velocities were measured in the carotid arteries. Stenosis evaluation based on the validated velocity criteria. CLINICAL HISTORY: [place],TOTAL OCCLUSION RIGHT CCA AND ICA, LT ENDARTDECTOMY,HTN,HLD FINDINGS: There is no flow identified in the right common carotid artery or the right internal carotid artery consistent with occlusion. The right vertebral artery is patent with antegrade flow. The peak systolic velocity of the left common carotid artery is 60 cm/s. The peak systolic velocity of the left internal carotid artery is 153 cm/s and end diastolic velocity 43 cm/s. A small amount of plaque is present. The left external carotid artery is patent.The left vertebral artery is patent with antegrade flow. IMPRESSION: Right common carotid and internal carotid artery occlusion. Less than 50% left carotid stenosis. Bilateral patent vertebral arteries with antegrade flow. If indicated, CTA or MRA could further evaluate. Reviewed, Interpreted and Dictated by Olaf Daniels III, MD Transcribed by Loretta Lund Authenticated and [facility]
== END ==
PROVIDERS: PCP Internal Medicine Adolescent Medicine; Visit Provider Thoracic Surgery (Cardiothoracic Vascular Surgery)
DX: I65.21 Occlusion and stenosis of right carotid artery (principal)
CPT/HCPCS: 93880

== ENCOUNTER → 2023-05-02 10:25 | Outpatient (CLI) | payer MEDICARE, MEDICAID, SELFPAY ==
--- NOTE | 2023-05-02 10:30 | XR_ITS ---
FINAL REPORT CLINICAL HISTORY: R/O pneumonia, c/o cough x 2 wks. Nonsmoker COMPARISON: 07/25/2021 FINDINGS: TWO VIEW CHEST The heart and mediastinum are unremarkable. There are chronic appearing lung changes in the bilateral lung bases. No acute infiltrate is seen. There is no pneumothorax. There are old right rib fractures. IMPRESSION: No acute cardiopulmonary process. Reviewed, Interpreted and Dictated by Roderick Dodd MD Transcribed by Gayla Henderson Authenticated and . [facility]
== END ==
PROVIDERS: PCP Internal Medicine Adolescent Medicine; Visit Provider Nurse Practitioner Family
DX: R06.2 Wheezing (principal)
CPT/HCPCS: 71046

== ENCOUNTER → 2023-06-03 09:47 | Outpatient (CLI) | payer MEDICARE, MEDICAID, SELFPAY ==
--- NOTE | 2023-06-03 10:14 | PC.NURSE ---
Pre and Post Zachery completed, Albuterol 0.083% given via HHN, per protocol, Pt tolerated tx well.
== END ==
PROVIDERS: PCP Internal Medicine Adolescent Medicine; Visit Provider Nurse Practitioner Family
DX: R06.02 Shortness of breath (principal)
CPT/HCPCS: 94060

== ENCOUNTER → 2023-08-22 14:13 | Outpatient (CLI) | payer MEDICARE, MEDICAID, SELFPAY ==
--- NOTE | 2023-08-22 14:19 | MM_ITS ---
PROCEDURE INFORMATION: Exam: MG Bilateral Screening 3D Mammography Exam date and time: 08/22/2023 2:57 PM Age: 78 years old Clinical indication: Screening examination TECHNIQUE: Imaging protocol: Bilateral Screening tomosynthesis and 2D mammography including computer-aided detection (CAD) when performed. COMPARISON: 1. MG MM DIG SCREENING MAMM BI W/CAD 07/31/2022 3:46 PM 2. MG MM DIG SCREENING MAMM BI W/CAD 11/03/2020 8:58 AM FINDINGS: MAMMOGRAPHY: Breast composition: There are scattered areas of fibroglandular density. Mass: No new or suspicious masses Architectural distortion: None. Calcifications: No suspicious calcifications. Asymmetric density: None. Skin thickening: None. Axillary adenopathy: None. IMPRESSION: No mammographic evidence of malignancy. Annual screening is recommended unless otherwise clinically indicated. ASSESSMENT: BI-RADS Category 1: Negative
--- NOTE | 2023-08-22 14:21 | US_ITS ---
FINAL REPORT CLINICAL HISTORY: NODULE COMPARISON: 07/31/2022 FINDINGS: THYROID ULTRASOUND: The right lobe of the thyroid measures 5.1 x 2.2 x 2.2 cm in size. The right lobe is enlarged in comparison with the left. There are multiple nodules in the right lobe of the thyroid gland, with a dominant nodule in the mid portion of the right lobe, which was present on the prior ultrasound of 2021 and appears stable. On today's examination this nodule measures 12 x 9 x 9 millimeters in size, and measured 12 x 8 x 9 mm on the prior exam. This nodule remains a TI-RADS category 3 nodule. There are several other smaller subcentimeter nodules present, also stable. The left lobe of the thyroid measures 3.5 x 1.2 x 1 cm in size. There are several nodules in the left lobe of the thyroid gland, with the largest nodule measuring 10 x 6 x 7 mm in size, solid, a TI-RADS category 4 nodule. This is also stable since the prior ultrasound. Once again there are several smaller subcentimeter nodules, also stable. The isthmus of the thyroid gland measures 4 mm in thickness. The dominant nodule in the isthmus is 15 x 13 x 6 mm in size, also essentially unchanged since the prior examination. IMPRESSION: Multiple nodules are present as described above, not significantly changed in size or appearance since the prior ultrasound of 07/31/2022. Would suggest according to TI-RADS criteria a 1 year follow-up thyroid ultrasound. Reviewed, Interpreted and Dictated by Ovidio Gaming MD Transcribed by Shu Dye Authenticated and [facility]
== END ==
PROVIDERS: PCP Internal Medicine Adolescent Medicine; Visit Provider Nurse Practitioner Family
DX: Z12.31 Encounter for screening mammogram for malignant neoplasm of breast (principal); E04.1 Nontoxic single thyroid nodule
CPT/HCPCS: 76536; 77063; 77067

== ENCOUNTER 2023-08-23 04:50 | Emergency (ER) | payer MEDICARE, MEDICAID, SELFPAY ==
[2023-08-23 04:52] VITALS: BP 180/89; PULSE 66; RESP 15; TEMP 36.6; O2SAT 95; BMI 26.9
[2023-08-23 05:00] VITALS: BP 180/89; PULSE 65; RESP 14; O2SAT 97
--- NOTE | 2023-08-23 05:01 | CT_ITS ---
PROCEDURE INFORMATION: Exam: CTA Abdomen and Pelvis With Contrast Exam date and time: 08/23/2023 5:33 AM Age: 78 years old Clinical indication: Other: Brbpr; Additional info: Lower gi bleed, brbpr TECHNIQUE: Imaging protocol: Computed tomographic angiography of the abdomen and pelvis with contrast. Exam focused on the arteries. 3D rendering (Not supervised by radiologist): MIP and/or 3D reconstructed images were created by the technologist. Radiation optimization: All CT scans at this facility use at least one of these dose optimization techniques: automated exposure control; mA and/or kV adjustment per patient size (includes targeted exams where dose is matched to clinical indication); or iterative reconstruction. Contrast material: ISOVUE; Contrast volume: 100 ml; Contrast route: INTRAVENOUS (IV); REPORTING DATA: Count of CT and Cardiac NM exams in prior 12 months: This patient has received 0 known CTs and 0 known cardiac nuclear medicine studies in the 12 months prior to the current study. COMPARISON: CT ABDOMEN PELVIS WO/W CON 12/28/2021 7:18 AM FINDINGS: Lungs: Scattered reticular subpleural interstitial thickening is noted at the lung bases. In the left lower lobe there is an 8 mm calcified granuloma. A 3 mm pleural-based nodule is noted in the right lower lobe along the diaphragm on series 5, image 21 unchanged from the prior study. Aorta: There is fairly heavy atheromatous calcification of the abdominal aorta mainly in its infrarenal segment. Celiac trunk and mesenteric arteries: There is moderate atheromatous narrowing (approximately 50%) of the proximal superior mesenteric artery approximately 15 mm beyond its origin. Renal arteries: The patient appears to be post stenting of the left renal artery. There is heavy atheromatous calcification at the origin of the right renal artery. Right iliac arteries: No occlusion or significant stenosis. Left iliac arteries: No occlusion or significant stenosis. Liver: A calcified granulomas noted in the right hepatic dome. Gallbladder and bile ducts: Surgical clips are noted in the gallbladder fossa compatible with a prior cholecystectomy. Pancreas: Unremarkable. No mass. No ductal dilation. Spleen: Calcific splenic granulomas are noted. Adrenal glands: Unremarkable. No mass. Kidneys and ureters: There is left renal atrophy. The kidneys enhance symmetrically there is no hydronephrosis. Renal cortical scarring and exophytic cysts are noted. Exophytic from the lower pole of the left kidney there is a 19 mm cyst. No further imaging evaluation follow-up as necessary. Stomach and bowel: There is workup of hypervascularity along the left wall of the rectum. No active extravasation is appreciated. Appendix: No evidence of appendicitis. Intraperitoneal space: Unremarkable. No free air. No significant fluid collection. Lymph nodes: Unremarkable. No enlarged lymph nodes. Urinary bladder: The urinary bladder is contracted. Reproductive: Unremarkable as visualized. Bones/joints: Bones are osteopenic with degenerative change in the slight L4-L5 spondylolisthesis. Soft tissues: Unremarkable. IMPRESSION: No definite evidence for acute gastrointestinal hemorrhage. Mild hypervascularity at the level of the low rectum. Please correlate endoscopically. 50% atheromatous narrowing in the proximal superior mesenteric artery. Granulomatous disease as described. Renal cortical scarring, left renal atrophy and cysts. No further imaging evaluation is necessary.
--- NOTE | 2023-08-23 05:16 | HMH.EDGENADL ---
Discharge Plan Disposition Patient Disposition: Xfer Short-Term Hosp Condition: Good Prescriptions Prescriptions: No Action xdbxflys-zpustrs-mqak-lutein tablet 1 tab PO DAILY aspirin 81 mg tablet,delayed release (DR/EC) 81 mg PO DAILY calcium carbonate 200 mg calcium (500 mg)-vitamin D3 400 unit tablet 200 mg (500 mg) -400 unit tablet 1 tab PO BID carvedilol 12.5 mg tablet 12.5 mg PO BID Tradjenta 5 mg tablet 5 mg PO DAILY escitalopram oxalate 10 mg tablet 10 mg PO DAILY chlorthalidone 25 mg tablet 25 mg PO DAILY polyethylene glycol 3350 [Miralax] 17 gram powder in packet 17 g PO DAILY PRN (Reason: constipation) docusate sodium [Stool Softener] 100 mg capsule 100 mg PO DAILY PRN (Reason: stool softener) losartan 100 mg tablet 100 mg PO DAILY 90 Days Qty: 90 Hold Instructions: pending follow-up with PCP Patient Comments: Takes in the evening. nifedipine 90 mg tablet extended release 90 mg PO DAILY 30 Days Qty: 30 metformin 1,000 mg tablet 1,000 mg PO BID clopidogrel 75 mg tablet 75 mg PO DAILY Qty: 90 3RF buspirone 10 MG tablet 10 mg PO BID alprazolam 0.5 mg tablet 0.5 mg PO BID PRN (Reason: Anxiety) atorvastatin 80 MG tablet 80 mg PO DAILY Referrals Follow up/Referrals: Ed Stevens MD [Primary Care Provider] - See instructions Clinical Impressions Clinical Impression: Acute lower GI bleeding, Hemorrhoids, Abnormality of rectum Instructions Patient Instructions: DI for Gastrointestinal Bleeding Discharge ED Provider: Sarah Hylton General Adult HPI General Chief complaint: GI Bleed Stated complaint: bleeding from bowels Time Seen by Provider: 08/23/23 04:58 Mode of Arrival: Ambulatory Source of Information: Patient and Relative Limitations: Hard of hearing Description of Symptoms (Recalled from ER Triage Doc. by RN): Patient reports waking at 0300 stating that she thought she was going to have diarrhea. When she went to have a bowel movement she states that it was bright red blood. Patient denies pain, states that she attempted to go back to sleep but was awoke again with the same feeling. Reports that she's had a total of 3 bloody bowel movements that were fully liquid. Patient does take Plavix. History of Present Illness HPI narrative: This patient is a 78-year-old female with a history of CVA, carotid stenosis status post endarterectomy, renal artery stenosis status post stenting on aspirin and Plavix, type 2 diabetes, hypertension, and hyperlipidemia presenting to the emergency department for evaluation with concern for bright red blood per rectum. Patient notes that she woke up around 3:00 AM feeling that she was going to have diarrhea. She went to the bathroom, and she notes that when she looked in the toilet, it was full of bright red blood. She notes this happened 3 more times. She denies any associated cramps, abdominal pain, rectal pain, nausea, vomiting, or other concerns. She denies any history of GI bleeding, diverticulosis, diverticulitis, or prior intra-abdominal issues. Of note, however, she has refused colonoscopy in the past,but she states that she has done the Cologuard testing which has always been negative. No other concerns noted, and she was well when she went to bed last night. Related Data Home Medications Medication Instructions Recorded Confirmed losartan 100 mg tablet 100 mg PO DAILY BLOOD PRESSURE 90 05/28/18 08/23/23 days ##90 nifedipine 90 mg tablet,extended 90 mg PO DAILY BLOOD PRESSURE 30 05/28/18 08/23/23 release days ##30 yvdiandk-pkjpnyq-wxzf-lutein tablet 1 tab PO DAILY Supplement 11/06/18 08/23/23 buspirone 10 mg tablet 10 mg PO BID Anxiety 07/25/21 08/23/23 alprazolam 0.5 mg tablet 0.5 mg PO BID PRN Anxiety 12/14/21 08/23/23 aspirin 81 mg tablet,delayed 81 mg PO DAILY heart health 12/14/21 08/23/23 release calcium carbonate 200 mg calcium 1
[2023-08-23 05:29] LABS: Basophils % 0.4 % (0.1-2.0); Eosinophils # 0.1 K/mm3 (0.0-0.4); Eosinophils % 1.2 % (0.1-12.0); Hematocrit 36.2 % (37.0-47.0); Hemoglobin 12.3 g/dL (12.2-16.2); Lymphocytes # 1.4 K/mm3 (0.7-4.5); Lymphocytes % 15.1 % (10-50); Mean Corpuscular HGB Conc 34.1 g/dL (31.8-35.4); Mean Corpuscular Hemoglobin 30.4 pg (27.0-31.2); Mean Platelet Volume 7.4 fl (7.4-10.4); Monocytes # 0.4 K/mm3 (0.1-1.0); Monocytes % 4.3 % (1.7-9.3); Neutrophils # 7.2 K/mm3 (1.8-7.8); Platelet Count 373 K/mm3 (142-424); Red Blood Count 4.07 M/mm3 (4.20-5.40); Red Cell Distribution Width 13.1 % (11.5-17.5); White Blood Count 9.1 K/mm3 (4.8-10.8)
[2023-08-23 05:38] LABS: Lactic Acid 2.2 mmol/L (0.7-2.1)
[2023-08-23 05:40] LABS: Activated Partial Thrombo Time 29.8 seconds (22.8-30.6); INR 0.96 (0.9-1.1); Prothrombin Time 10.4 seconds (10.1-12.5)
[2023-08-23 05:42] LABS: Alanine Aminotransferase 29 U/L (12-78); Alkaline Phosphatase 65 U/L (38-126); Aspartate Amino Transferase 34 U/L (14-36); Bilirubin,Total 0.5 mg/dl (0.2-1.3); Blood Urea Nitrogen 20 mg/dl (7-17); Calcium 9.4 mg/dl (8.4-10.2); Carbon Dioxide 25 mmol/L (22.0-30.0); Chloride 98 mmol/L (98-107); Creatinine Clearance Estimated 51 mL/min (50-200); Estimated Glomerular Filt Rate 97 ml/min (>60); GFR (African American) 117 ML/MIN (>60); Glucose 182 mg/dl (74-100)
[2023-08-23 05:43] LABS: Albumin/Globulin Ratio 1.5 (1.1-1.8); Globulin 2.6 g/dL (1.3-3.2); Total Protein,Serum 6.6 g/dl (6.3-8.2)
--- NOTE | 2023-08-23 05:49 | HMH.ITSTN ---
GFR completion/results were overrode for the use of contrast media by the Physician on a risk vs. benefit situation with this patient
[2023-08-23 05:56] LABS: Anion Gap 11.3 mEq/L (5-15); Potassium 4.3 mmoL/L (3.5-5.1); Sodium 130 mmol/L (136-145)
[2023-08-23 06:00] VITALS: BP 160/77; PULSE 66; RESP 15; O2SAT 96
--- NOTE | 2023-08-23 06:28 | PC.NURSE ---
paged oncall surgery
--- NOTE | 2023-08-23 06:29 | PC.NURSE ---
dr cote returned call
--- NOTE | 2023-08-23 06:34 | PC.NURSE ---
Assisted patient off of bedpan at this time. Patient had small hematochezia bowel movement. Stool sample collected and sent.
[2023-08-23 06:37] LABS: Adenovirus F 40/41, stool Not Detected (NotDetected); Astrovirus Not Detected (NotDetected); Campylobacter Not Detected (NotDetected); Cryptosporidium Not Detected (NotDetected); Cyclospora Cayetanesis Not Detected (NotDetected); Entamoeba histolytica Not Detected (NotDetected); Enteroaggregative E coli Not Detected (NotDetected); Enteropathogenic E coli Not Detected (NotDetected); Enterotoxigenic E coli Not Detected (NotDetected); Giardia lamblia Not Detected (NotDetected); Norovirus Not Detected (NotDetected); Plesimonas Shigalloides, PCR Not Detected (NotDetected); Rotavirus A Not Detected (NotDetected); Salmonella, PCR Not Detected (NotDetected); Sapovirus Not Detected (NotDetected); Shiga-like toxin E coli Not Detected (NotDetected); Shigella Enterovasive E coli Not Detected (NotDetected); Vibrio Cholerae Not Detected (NotDetected); Vibrio, PCR Not Detected (NotDetected); Yersinia Entercolitica, PCR Not Detected (NotDetected)
--- NOTE | 2023-08-23 07:13 | PC.NURSE ---
Report from JOVANNA Paulino
--- NOTE | 2023-08-23 07:38 | PC.NURSE ---
placed call to for transfer ,Dr Hylton speaking to them at this time
--- NOTE | 2023-08-23 07:39 | PC.NURSE ---
called rad for [employer] to [employer] and a disc
[2023-08-23 07:48] LABS: Hematocrit 33.4 % (37.0-47.0); Hemoglobin 11.6 g/dL (12.2-16.2)
--- NOTE | 2023-08-23 08:13 | PC.NURSE ---
ems called for tranport
--- NOTE | 2023-08-23 08:18 | PC.NURSE ---
Report to JOVANNA Bains at [facility]. Awaiting EMS transport
--- NOTE | 2023-08-23 08:35 | PC.NURSE ---
EMS here for transport
[2023-08-23 08:43] VITALS: BP 188/81; PULSE 69; RESP 17; TEMP 36.6; O2SAT 97
[2023-08-23 09:23] LABS: Reflex Lactic Add Lactic Reflex
[2023-08-27 08:30] LABS: Clostridium Difficile A/B, PCR Detected (NotDetected)
== END 2023-08-23 08:45 | disposition short-term general hospital (02) ==
PROVIDERS: Emergency Provider Emergency Medicine; PCP Internal Medicine Adolescent Medicine
DX: K92.2 Gastrointestinal hemorrhage, unspecified (principal); E87.1 Hypo-osmolality and hyponatremia; K62.9 Disease of anus and rectum, unspecified; K64.9 Unspecified hemorrhoids; A04.72 Enterocolitis due to Clostridium difficile, not specified as recurrent; I65.29 Occlusion and stenosis of unspecified carotid artery; I70.1 Atherosclerosis of renal artery; E11.9 Type 2 diabetes mellitus without complications; I10 Essential (primary) hypertension; E78.5 Hyperlipidemia, unspecified; Z98.62 Peripheral vascular angioplasty status; Z79.01 Long term (current) use of anticoagulants; Z79.84 Long term (current) use of oral hypoglycemic drugs
CPT/HCPCS: 74174; 80053; 83605; 85014; 85018; 85025; 85610; 85730; 86850; 87507; 96360; 99285; Q9967

== ENCOUNTER → 2023-09-04 15:15 | Outpatient (CLI) | payer MEDICARE, MEDICAID, SELFPAY ==
[2023-09-04 15:43] LABS: Basophils % 0.6 % (0.1-2.0); Eosinophils # 0.2 K/mm3 (0.0-0.4); Eosinophils % 2.6 % (0.1-12.0); Hematocrit 34.1 % (37.0-47.0); Lymphocytes # 1.7 K/mm3 (0.7-4.5); Lymphocytes % 26.1 % (10-50); Mean Corpuscular HGB Conc 32.3 g/dL (31.8-35.4); Mean Corpuscular Hemoglobin 29.2 pg (27.0-31.2); Mean Corpuscular Volume 90.4 fl (81-99); Mean Platelet Volume 7.4 fl (7.4-10.4); Monocytes # 0.3 K/mm3 (0.1-1.0); Monocytes % 4.8 % (1.7-9.3); Neutrophils # 4.2 K/mm3 (1.8-7.8); Neutrophils % 65.8 % (37.0-80.0); Platelet Count 405 K/mm3 (142-424); Red Blood Count 3.78 M/mm3 (4.20-5.40); Red Cell Distribution Width 13.7 % (11.5-17.5); White Blood Count 6.4 K/mm3 (4.8-10.8)
== END ==
PROVIDERS: PCP Internal Medicine Adolescent Medicine; Visit Provider Surgery
DX: L60.8 Other nail disorders (principal)
CPT/HCPCS: 36415; 85025

== ENCOUNTER 2023-10-29 06:27 | Day surgery (SDC) | payer MEDICARE, SELFPAY ==
[2023-10-25 10:12] VITALS: BMI 29.6
[2023-10-29] VITALS (9 sets, daily range): BP systolic 90–152; BP diastolic 49–74; PULSE 53–60; RESP 18–20; TEMP 36.7; O2SAT 93–97
--- NOTE | 2023-10-29 06:43 | HMH.SCOPE ---
Procedure: Date: 10/29/23 Patient Date of :: 1945 Procedure Performed:: Esophagogastroduodenoscopy with biopsy Colonoscopy Indications:: Anemia Bright red blood per rectum Abnormal CT of abdomen/pelvis Forwarded from September 04, 2023 note: This is a 78-year-old female who recently was evaluated in the Emergency Department at [facility] for lower gastrointestinal hemorrhage/bright red blood per rectum. Evaluation included CTA of abdomen/pelvis with findings of mild hypervascularity at the level of the lower rectum. Per recommendation/request of the Hospitalist Service, she was transferred to the [facility]. At the [facility] she underwent extended observation with no additional evidence of bleeding. The patient reports that a flexible sigmoidoscopy was performed at the [facility] and nothing abnormal and no sign of bleeding was found . Throughout her evaluation she reports that she did not undergo blood transfusion. She currently has no additional evidence of bleeding and states that she has not bled since leaving the hospital . Performing Provider:: Honorio Sanford MD Referring Provider:: . Sedation:: Monitored anesthesia care Procedure:: After informed consent was obtained the patient was taken to the endoscopy suite. Sedation ensued after the patient was transferred to the left lateral decubitus position. Pulse, blood pressure, and oxygen saturation were monitored throughout the procedure. The endoscope was advanced beyond the duodenal bulb. Retroflexion within the gastric lumen was accomplished. The gastroscope was carefully removed. Digital rectal exam revealed no significant abnormality. The colonoscope was placed in position. The entire colon was evaluated. The colonoscope was carefully removed and the patient was transferred to recovery in stable condition. Please see findings and specimens below for detail. Findings:: Gastroesophageal junction at 40 cm Moderate sliding hiatal hernia Bowel preparation poor Hemorrhoidal tags Internal hemorrhoids with no active bleeding Mild scattered diverticulosis Significant tortuosity Profound spasticity/lack of relaxation Focal scattered right colonic AVMs with no sign of active/recent hemorrhage Specimens:: Antral biopsy Recommendations:: Follow-up pathology Short-her repeat colonoscopy with extended bowel preparation warranted. Consider gastroenterology consultation. Defer repeat colonoscopy to the gastroenterology service if consultation occurs. Complications:: No immediate with the exception of your bowel preparation Estimated blood obtained (mL): 1 Colonoscopy Component Colonoscopy Component Was a colonoscopy performed during today's procedure?: Yes Recommended follow up colonoscopy of at least 10 years?: No If no, follow up colonoscopy recommended in ___ years?: (See above) Reason for not recommending >/= 10 yr follow-up interval?: (See above)
[2023-10-29] MEDS: LACTATED RINGERS 1000ML 1,000 ML 25 ML IV (06:59)
--- NOTE | 2023-10-29 07:02 | EXP.ANES.CKL ---
[facility] Disclaimer: The information contained in this section may have been updated after the patient was seen, as this information can be updated by other users. Medical History Abnormal electrocardiography Ankle fracture, lateral malleolus, closed Carotid artery stenosis Dyspnea History of cerebrovascular accident History of COVID-19 Hyperlipidemia Hypertension Hyponatremia Pneumonia Renal artery stenosis Sepsis Type 2 diabetes mellitus Surgical History H/O carotid endarterectomy History of cholecystectomy Family History Other Family history of diabetes mellitus type II Family history of hypertension Family history of myocardial infarction Social History Smoking Status: Never smoker second hand exposure: No alcohol intake: never substance use type: denies use current occupational status: retired Travel in the last 8 weeks: None household members: other housing: house current occupational exposures/hazards: No caffeine: Yes [facility] Anesthesia Checklist Patient Identification Patient Identification: Arm Band and Verbal (Name & ) Structural Data Admitted From: Home Planned Operative Procedure/s: Colonoscopy Consent for Planned Operative Procedure(s) Verified: Yes NPO Status Verified Time NPO: 00:00 Additional verifications Anesthesia Reactions: No Hx Blood Transfusions: No Blood Transfusion Reaction: No Airway Assessment Mallampati Score:: Class II C-Spine Mobility Assessed: Yes TMJ Mobility Assessed: Yes Dentition: Dentures-good fit (Removed) Neurological Assessment Level of Consciousness: Awake Hx Seizures: No Numbness or tingling in extremities: No Anesthesia Plan Anesthesia Risk discussed: Yes Anesthesia Plan: Verified ASA Class: III Anesthesia Type: MAC
--- NOTE | 2023-10-29 09:51 | PC.NURSE ---
Pt has had fluctuating oxygen sats while here in post-op 90-95%. When pt is resting and quiet sat drops then goes back up when starts talking. Encouraged to cough and deep breath and IS given. Denies any SOB and skin P/W/D. Denies chest pain. Lungs clear. Instructed pt and family to report any difficulty breathing to Dr. Stevens. Encouraged to cough and deep breath today and use IS every hour today. Discharge O2 sat is 95 RA.
[2023-10-29 14:49] LABS: POC Glucose,Bedside 122 (70-110)
== END 2023-10-29 10:03 | disposition home or self-care (01) ==
PROVIDERS: PCP Internal Medicine Adolescent Medicine; Visit Provider Surgery
PROC: 0DJ08ZZ Inspection of Upper Intestinal Tract, Via Natural or Artificial Opening Endoscopic (ICD-10-PCS; CPT 43235; principal; 2023-10-29 07:30)
DX: D64.9 Anemia, unspecified (principal); K44.9 Diaphragmatic hernia without obstruction or gangrene; B96.81 Helicobacter pylori [H. pylori] as the cause of diseases classified elsewhere; K29.50 Unspecified chronic gastritis without bleeding; Z91.199 Patient's noncompliance with other medical treatment and regimen due to unspecified reason; K64.4 Residual hemorrhoidal skin tags; K64.8 Other hemorrhoids; K57.30 Diverticulosis of large intestine without perforation or abscess without bleeding; Q27.33 Arteriovenous malformation of digestive system vessel; R93.5 Abnormal findings on diagnostic imaging of other abdominal regions, including retroperitoneum; E11.9 Type 2 diabetes mellitus without complications
CPT/HCPCS: 43239; 45378; 82962; 88305; J1610

== ENCOUNTER 2023-12-06 09:02 | Outpatient (CLI) | payer MEDICARE, SELFPAY ==
--- NOTE | 2023-12-06 09:09 | XR_ITS ---
FINAL REPORT TECHNIQUE: Bone densitometry calculations of the lumbar spine and left hip were obtained. CLINICAL HISTORY: SCREENING COMPARISON: None FINDINGS: Using L1-4, the bone mineral density of the spine is 0.863 g/cm2, corresponding to T-score of -1.7 and a Z score of 0.9. This is within the range of osteopenia. Using the left hip, the bone mineral density of the femoral neck is 0.62 g/cm2, corresponding to a T-score of -2.1 and a Z-score of 0.1. This is within the range of osteopenia. NOTE: T-score: Standard deviation compared with peak bone mass of young adult mean. *Following the recommendations of the International Society of Bone densitometry, classification of hip BMD is based on the lower of two T-scores; total hip or femoral neck. IMPRESSION: 1. Bone mineral density of the lumbar spine within the range of osteopenia. 2. Bone mineral density of the left femoral neck within the range of osteopenia. Reviewed, Interpreted and Dictated by Tereza Gómez MD Transcribed by Shu Dye Authenticated and [facility]
== END 2023-12-06 23:59 ==
PROVIDERS: PCP Nurse Practitioner Family; Visit Provider Nurse Practitioner Family
DX: Z78.0 Asymptomatic menopausal state; M85.89 Other specified disorders of bone density and structure, multiple sites
CPT/HCPCS: 77080

== ENCOUNTER 2024-01-15 09:50 | Day surgery (SDC) | payer MEDICARE, MEDICAID, SELFPAY ==
[2024-01-14 12:13] VITALS: BMI 24.0
[2024-01-15 10:08] VITALS: BP 152/70; PULSE 67; RESP 17; TEMP 36.6; O2SAT 93
[2024-01-15] MEDS: LACTATED RINGERS 1000ML 1,000 ML 100 ML IV (10:21)
[2024-01-15 10:53] VITALS: O2SAT 93
--- NOTE | 2024-01-15 10:55 | P.PNANES_ITS ---
[facility] Disclaimer: The information contained in this section may have been updated after the patient was seen, as this information can be updated by other users. Medical History Abnormal electrocardiography Ankle fracture, lateral malleolus, closed Carotid artery stenosis Dyspnea History of cerebrovascular accident History of COVID-19 Hyperlipidemia Hypertension Hyponatremia Pneumonia Renal artery stenosis Sepsis Type 2 diabetes mellitus Surgical History H/O carotid endarterectomy History of cholecystectomy History of colonoscopy History of esophagogastroduodenoscopy (EGD) Family History Other Family history of diabetes mellitus type II Family history of hypertension Family history of myocardial infarction Social History Smoking Status: Never smoker second hand exposure: No alcohol intake: never substance use type: denies use current occupational status: retired Travel in the last 8 weeks: None household members: other housing: house current occupational exposures/hazards: No caffeine: Yes [facility] Anesthesia Checklist Patient Identification Patient Identification: Arm Band, Family and Verbal (Name & ) Structural Data Admitted From: Home Planned Operative Procedure/s: Colonoscopy Consent for Planned Operative Procedure(s) Verified: Yes Verified Documents: Surgical Consent and History and Physical NPO Status Verified Time NPO: 06:30 Chart Verification Results Verified: CBC, BMP, ECG and Chest Xray Additional verifications Fingerstick Blood Glucose: 154 Patient : No Anesthesia Reactions: No Hx Blood Transfusions: No Blood Transfusion Reaction: No Cardiovascular Assessment Heart Sounds: S1 & S2 Pulse Rhythm: Irregular Peripheral Edema: No Airway Assessment Mallampati Score:: Class II C-Spine Mobility Assessed: Yes (FROM) TMJ Mobility Assessed: Yes Dentition: Dentures-good fit (Nothing loose per pt.) Neurological Assessment Level of Consciousness: Awake, Alert, Appropriate and Follows Commands Hx Seizures: No Numbness or tingling in extremities: Yes (LT Foot) Anesthesia Plan Anesthesia Risk discussed: Yes Anesthesia Plan: Verified ASA Class: III Anesthesia Type: MAC
[2024-01-15 11:41] VITALS: BP 145/66; PULSE 67; RESP 18; TEMP 36.2; O2SAT 97
[2024-01-15 11:51] VITALS: BP 129/59; PULSE 64; RESP 18; O2SAT 97
--- NOTE | 2024-01-15 11:57 | HMH.SCOPE ---
Procedure: Date: 01/15/24 Patient Date of :: 1945 Procedure Performed:: Colonoscopy Indications:: The patient is a 78-year-old who presents for colonoscopy. The patient has a history of GI bleeding with hematochezia in August. She underwent colonoscopy evaluation with Dr. Sanford. Colonoscopy was noted to be tortuous and the bowel preparation was noted to be poor. There were reported AVMs (nonbleeding) in the ascending colon. Patient also had a CTA that reported possible hypervascularization in the level of the lower rectum. Patient subsequently was transferred to the [facility] for further evaluation. The patient had an unremarkable flexible sigmoidoscopy at . The patient has not had recurrence of GI bleeding since August. Performing Provider:: Gamaliel Lowe MD Referring Provider:: MD June Kaminski APRN Sedation:: See RN records Procedure:: After placing the patient in the left lateral decubitus position, the colonoscopy was gently inserted into the rectum and under direct visualization advanced to the cecum which was identified by transillumination in the right lower quadrant to the area which appeared to possibly be the cecum.. Color, texture, mucosa, and anatomy of the colon were carefully examined with the scope. Findings:: The quality of the bowel preparation was good, with a few areas of scattered fair preparation in the mid to distal colon. The colon was noted to be torturous in the distal colon and also the colon was flaccid, which resulted in significant looping of the colonoscope. Counter abdominal pressure was applied, patient maneuvering to the supine position, and scope loop reduction was necessary to advance the colonoscope. The colonoscope was advanced to the area which appeared to be the cecum, but I was not able to identify the usual landmarks with the cecal strap or appendiceal orifice. On attempting to advance the colonoscope further, the colonoscope retroflexed within this space. Within the area of the ascending colon, a few small non bleeding angiodysplasia were seen. Also seen were scattered areas of small mucosal disruptions with pin-point bleeding that would appear related to mucosal trauma from advancing the colonoscope. I suspect the patient also may have some degree of intraabdomial/pericolonic adhesions. There were scattered diverticula seen in the sigmoid colon. Recommendations:: Will arrange barium enema study Complications:: None Estimated blood obtained (mL): 0 Colonoscopy Component Colonoscopy Component Was a colonoscopy performed during today's procedure?: Yes Recommended follow up colonoscopy of at least 10 years?: No If no, follow up colonoscopy recommended in ___ years?: See below Reason for not recommending >/= 10 yr follow-up interval?: Repeat colonoscopy depending on barium enema study result
[2024-01-15 12:01] VITALS: BP 126/64; PULSE 62; RESP 18; O2SAT 96
[2024-01-15 12:02] LABS: POC Glucose,Bedside 154 (70-110)
[2024-01-15 12:15] VITALS: BP 120/72; PULSE 66; RESP 18; O2SAT 97
== END 2024-01-15 12:20 | disposition home or self-care (01) ==
PROVIDERS: PCP Internal Medicine Adolescent Medicine; Visit Provider Internal Medicine
PROC: (CPT G0121; principal; 2024-01-15 11:00)
DX: Z12.11 Encounter for screening for malignant neoplasm of colon (principal); Q27.33 Arteriovenous malformation of digestive system vessel; K56.2 Volvulus; K55.20 Angiodysplasia of colon without hemorrhage; E11.9 Type 2 diabetes mellitus without complications
CPT/HCPCS: G0121; 82962

== ENCOUNTER 2024-01-17 14:13 | Outpatient (CLI) | payer MEDICARE, MEDICAID, SELFPAY ==
[2024-01-19 13:54] LABS: H. pylori Stool Ag, EIA Negative (Negative)
== END 2024-01-17 23:59 ==
LOC: LAB.DROPOF 14:14
PROVIDERS: PCP Internal Medicine Adolescent Medicine; Visit Provider Surgery
DX: A04.8 Other specified bacterial intestinal infections (principal)
CPT/HCPCS: 87338

== ENCOUNTER 2024-01-20 08:47 | Outpatient (CLI) | payer MEDICARE, MEDICAID, SELFPAY ==
--- NOTE | 2024-01-20 08:48 | FL_ITS ---
FINAL REPORT CLINICAL HISTORY: incomplete colonoscopy 4.13 min DAP 3908.97 FINDINGS: BARIUM ENEMA HISTORY: Incomplete colonoscopy. PROCEDURE: Single-contrast barium was introduced by gravity drip. Spot and overhead films were obtained. Number of images: 32 Fluoro time: 4 minutes 13 seconds DAP: 3908.97 uGym2. FINDINGS: Boiler Fitter film is unremarkable. Retained stool limits mucosal detail. Colon is markedly redundant. No constricting or obstructing lesions are identified to the level of the cecum. There are scattered diverticular changes. IMPRESSION: Scattered diverticulosis. Markedly redundant colon without obstructing lesion identified. Films reviewed , interpreted and dictated by Dr. Gaming. Transcribed by Austin Jeter PA-C. Reviewed, Interpreted and Dictated by Ovidio Gaming MD Transcribed by GAGE Mistry Authenticated and [facility]
[2024-01-20] MEDS: BARIUM SULFATE(E-Z-AC);750ML BOTTLE 1500 ML PO (10:41)
== END 2024-01-20 23:59 | disposition home or self-care (01) ==
LOC: RAD 08:48
PROVIDERS: PCP Internal Medicine Adolescent Medicine; Visit Provider Internal Medicine
DX: K59.09 Other constipation (principal)
CPT/HCPCS: 74270

== ENCOUNTER 2024-02-26 13:00 | Outpatient (RCR) | payer MEDICARE, MEDICAID, SELFPAY | END 2024-02-26 13:05 | disposition home or self-care (01) | LOC: OT 13:00 | PROVIDERS: Visit Provider Nurse Practitioner Family | DX: M19.041 Primary osteoarthritis, right hand (principal) | CPT/HCPCS: 97010; 97014; 97018; 97035; 97140; 97165; G0283 ==

== ENCOUNTER 2024-05-22 08:29 | Outpatient (CLI) | payer MEDICARE, MEDICAID, SELFPAY ==
--- NOTE | 2024-05-22 08:32 | MR_ITS ---
FINAL REPORT CLINICAL HISTORY: LOW BACK PAIN COMPARISON: None FINDINGS: Multiplanar MR imaging of the lumbar spine was performed without contrast. On the sagittal T2-weighted images, disc degeneration is seen at multiple levels. There is mild anterolisthesis of L4 on L5. There is no evidence of fracture. No bony mass is identified. The conus has an unremarkable appearance. T11-12: Annular disc bulge and facet arthropathy. There is no significant canal stenosis or neuroforaminal narrowing. T12-L1: An annular bulge is present. There is no significant canal stenosis or neuroforaminal narrowing. L1-2: An annular bulge is present. There is no significant canal stenosis or neural foraminal narrowing. L2-3: Annular disc bulge and facet arthropathy. Mild bilateral neuroforaminal narrowing. L3-4: Annular disc bulge and facet arthropathy. Mild bilateral neuroforaminal narrowing L4-5: Annular disc bulge and facet arthropathy. Bilateral lateral recess stenosis. Severe bilateral neuroforaminal narrowing. Moderate central canal stenosis with AP diameter of the thecal sac of 5 mm. L5-S1: Annular disc bulge and facet arthropathy. Mild bilateral neuroforaminal narrowing. 5 mm synovial cyst lateral to the left facet joint. IMPRESSION: Multilevel degenerative disc disease and spondylosis as described. L4-5 bilateral lateral recess stenosis with moderate central canal stenosis. L5-S1, 5 mm synovial cyst. Reviewed, Interpreted and Dictated by Olaf Daniels III, MD Transcribed by Xochilt Ramirez Authenticated and [facility]
== END 2024-05-22 23:59 | disposition home or self-care (01) ==
LOC: RAD 08:30
PROVIDERS: PCP Internal Medicine Adolescent Medicine; Visit Provider Nurse Practitioner Family
DX: M54.50 Low back pain, unspecified (principal); G89.29 Other chronic pain
CPT/HCPCS: 72148

== ENCOUNTER 2024-06-24 10:57 | Outpatient (POV) | payer MEDICARE, MEDICAID, SELFPAY ==
[2024-06-24 11:01] VITALS: BP 128/56; PULSE 93; RESP 18; O2SAT 97; BMI 26.9
--- NOTE | 2024-06-24 11:47 | EXP.PAIN.OV ---
HPI Data of Consult Patient: new to practice Consult date: 06/24/24 Requesting Physician: Sarah Olivo APRN Primary Care Provider: Ed Stevens MD Consult Narrative Reason for consult: Low back pain right-sided, right hip pain History of present illness: Ms. Montemayor is a 79 year old female who presents today as a new patient. She is a referral from Melly Covington's office. Today she rates her pain a 5 out of 10. Patient states that her pain is all in her low back along the right side and right hip. Patient states this did start around January unrelated to any specific trauma or injury. Patient states that initially it was very severe and almost constant. She states that it affected every aspect of her life and she had difficulty doing ADLs. Patient states she did try [id number] medication along with heat and ice and topicals with minimal relief. Patient states that she did end up going to physical therapy for her hand and they were supposed to do her low back as well however this did not go as well. Patient does state that she has been prescribed a muscle relaxer from her primary care and that overall this has seemed to help some. Patient does state that the pain has eased up and it is definitely not as severe and is only more so when she does increased activities. She denies any radiating symptoms into her lower extremities. Patient states that when they scheduled this appointment it was when it was severe. Her Oir has been reviewed and is appropriate. CC: Sarah Olivo APRN [facility] Disclaimer: The information contained in this section may have been updated after the patient was seen, as this information can be updated by other users. Medical History History of COVID-19 Hyperlipidemia Hypertension Renal artery stenosis Dyspnea Carotid artery stenosis Abnormal electrocardiography Pneumonia Sepsis Hyponatremia Type 2 diabetes mellitus History of cerebrovascular accident Ankle fracture, lateral malleolus, closed Surgical History History of esophagogastroduodenoscopy (EGD) History of colonoscopy History of cholecystectomy H/O carotid endarterectomy Family History Other Family history of diabetes mellitus type II Family history of hypertension Family history of myocardial infarction Social History (Updated 06/24/24 @ 11:30 by Irais Cam RN) Smoking Status: Never smoker second hand exposure: No alcohol intake: never substance use type: denies use current occupational status: retired Travel in the last 8 weeks: None household members: other housing: house current occupational exposures/hazards: No caffeine: Yes Review of Systems Review of Systems Review of systems:: pertinent systems reviewed and negative unless documented below Review of systems (narrative): Review of Systems: General: No recent weight changes, no fever, no sleep disturbances Respiratory: No cough, no shortness of air, no recurring pulmonary infections Cardiovascular/peripheral vascular: No chest pain, no palpitations, no edema, no shortness of breath Gastrointestinal: No new onset incontinence, normal bowel movements reported Genitourinary: No new onset incontinence Musculoskeletal: Low back pain, right hip pain Psychiatric: [Normal mood/affect] Neurological: [Denies weakness in extremities], [denies balance issues] Meds Home Medications and Allergies Home Medications ?Medication ?Instructions ?Recorded ?Confirmed ?Type losartan 100 mg tablet 100 mg PO DAILY BLOOD PRESSURE 90 05/28/18 06/24/24 History days ##90 nifedipine 90 mg tablet,extended 90 mg PO DAILY BLOOD PRESSURE 30 05/28/18 06/24/24 History release days ##30 buspirone 10 mg tablet 10 mg PO BID Anxiety 07/25/21 06/24/24 History alprazolam 0.5 mg tablet 0.5 mg PO BID PRN Anxiety 12/14/21 06/24/24 History aspirin 81 mg tablet,delayed 81 mg PO DAILY heart health 12/14/21 06/24/24 History release calcium carbonate 200 mg calcium 1 tab PO BID Supplement 12/14/21 06/24/24 History (500 mg)-vitamin D3 400 unit tablet carvedilol 12.5 mg tablet 12.5 mg PO BID High blood pressure 12/14/21 06/24/24 History chlorthalidone 25 mg tablet 25 mg PO DAILY Supplement 12/14/21 06/24/24 History docusate sodium 100 mg capsule 100 mg PO DAILY PRN stool softener 12/14/21 06/24/24 History (Stool Softener) escitalopram oxalate 10 mg tablet 10 mg PO DAILY Depression 12/14/21 06/24/24 History linagliptin 5 mg tablet (Tradjenta) 5 mg PO DAILY Diabetes 12/14/21 06/24/24 History metformin 1,000 mg tablet 1,000 mg PO BID BLOOD SUGAR 12/14/21 06/24/24 History polyethylene glycol 3350 17 gram 17 g PO DAILY PRN constipation 12/14/21 06/24/24 History oral powder packet (Miralax) albuterol sulfate 90 mcg/actuation 1 mcg inhalation DAILY 09/04/23 06/24/24 History aerosol inhaler (Ventolin HFA) fexofenadine 30 mg tablet 30 mg PO DAILY 10/25/23 06/24/24 History lansoprazole 30 mg capsule,delayed 30 mg PO DAILY 12/05/23 06/24/24 History release vjwbmzpf-buddtnt-cyif-lutein tablet 1 tab PO DAILY Supplement 12/05/23 06/24/24 History atorvastatin 80 mg tablet See Rx Instructions .Route 12/09/23 06/24/24 Rx .COMPLEX #90 tabs peg 3350-electrolytes 236 240 ml PO Q10M bowel prep #4,000 mL 01/03/24 06/24/24 Rx gram-22.74 gram-6.74 gram-5.86 gram solution (GaviLyte-G) New Prescriptions to Start Prescriptions: Allergies Allergy/AdvReac Type Severity Reaction Status Date / Time hydralazine Allergy Verified 01/16/24 13:13 Objective Vital signs: Pulse Resp BP Pulse Ox O2 Del Method 93 H 18 128/56 L 97 Room Air 06/24/24 11:06/24/24 11:01 06/24/24 11:01 06/24/24 11:06/24/24 11:01 Narrative: Physical Exam: General: Alert and oriented x3, no acute distress, pleasant and cooperative Lungs: Respirations even and unlabored, symmetrical chest expansion Eyes: PERRL Musculoskeletal: Flexion and extension of lumbar [spine] somewhat guarded secondary to pain, [antalgic gait noted] point tenderness along right SI with positive right Mahi's, Lamar's, Gaenslen's, compression and distraction exam Neurological: Speech clear, no gross sensory deficit Additional findings Additional findings: FINDINGS: Multiplanar MR imaging of the lumbar spine was performed without contrast. On the sagittal T2-weighted images, disc degeneration is seen at multiple levels. There is mild anterolisthesis of L4 on L5. There is no evidence of fracture. No bony mass is identified. The conus has an unremarkable appearance. T11-12: Annular disc bulge and facet arthropathy. There is no significant canal stenosis or neuroforaminal narrowing. T12-L1: An annular bulge is present. There is no significant canal stenosis or neuroforaminal narrowing. L1-2: An annular bulge is present. There is no significant canal stenosis or neural foraminal narrowing. L2-3: Annular disc bulge and facet arthropathy. Mild bilateral neuroforaminal narrowing. L3-4: Annular disc bulge and facet arthropathy. Mild bilateral neuroforaminal narrowing L4-5: Annular disc bulge and facet arthropathy. Bilateral lateral recess stenosis. Severe bilateral neuroforaminal narrowing. Moderate central canal stenosis with AP diameter of the thecal sac of 5 mm. L5-S1: Annular disc bulge and facet arthropathy. Mild bilateral neuroforaminal narrowing. 5 mm synovial cyst lateral to the left facet joint. IMPRESSION: Multilevel degenerative disc disease and spondylosis as described. L4-5 bilateral lateral recess stenosis with moderate central canal stenosis. L5-S1, 5 mm synovial cyst. Reviewed, Interpreted and Dictated by Olaf Daniels III, MD Transcribed by Xochilt Ramirez Authenticated and [facility] Assessment and Plan *Assessment and plan (1) Degenerative disc disease, lumbar: Status: Acute Category: Medical Code(s): M51.36 - Other intervertebral disc degeneration, lumbar region (2) Sacroiliitis: Status: Acute Category: Medical Code(s): M46.1 - Sacroiliitis, not elsewhere classified Plan Patient is experiencing worsening pain in and around her low back and right hip. Patient did have point tenderness along her right hip with a positive right Mahi's, Lamar's, Gaenslen's, compression and distraction exam. I did discuss with the patient that she may benefit from right SI injection however since she is stating that her pain is more manageable currently I have discussed with the patient that we can wait if she would like. I will order the patient a compounded cream. Patient was counseled if the pain starts to increase between now and her next visit that she can call and schedule the right SI injection under fluoroscopy at that time. Patient is agreeable to this. Patient will return to clinic in 1 month for reevaluation of symptoms and plan of care. Patient has been instructed to contact the clinic with any concerns before the next appointment. Dr. Dixon has reviewed this note and agrees with this plan of care. This note was dictated using voice recognition software and make contain errors or omissions. All injections are used with Lidocaine or Bupivacaine and Depo Medrol.
== END 2024-06-24 23:59 | disposition home or self-care (01) ==
LOC: SC.PAIN 10:58
PROVIDERS: PCP Internal Medicine Adolescent Medicine; Visit Provider Nurse Practitioner Family
DX: M51.36 Other intervertebral disc degeneration, lumbar region (principal); M46.1 Sacroiliitis, not elsewhere classified; Z95.5 Presence of coronary angioplasty implant and graft; Z73.89 Other problems related to life management difficulty; Z79.899 Other long term (current) drug therapy
CPT/HCPCS: 99202; G0463

== ENCOUNTER 2024-07-30 13:21 | Outpatient (POV) | payer MEDICARE, MEDICAID, SELFPAY ==
[2024-07-30 13:49] VITALS: BP 153/71; PULSE 68; RESP 16; O2SAT 98; BMI 26.9
--- NOTE | 2024-07-30 14:16 | A.OFFVIS_ITS ---
[facility] Disclaimer: The information contained in this section may have been updated after the patient was seen, as this information can be updated by other users. Medical History History of COVID-19 Hyperlipidemia Hypertension Renal artery stenosis Dyspnea Carotid artery stenosis Abnormal electrocardiography Pneumonia Sepsis Hyponatremia Type 2 diabetes mellitus History of cerebrovascular accident Ankle fracture, lateral malleolus, closed Surgical History History of esophagogastroduodenoscopy (EGD) History of colonoscopy History of cholecystectomy H/O carotid endarterectomy Family History Other Family history of diabetes mellitus type II Family history of hypertension Family history of myocardial infarction Social History (Updated 06/24/24 @ 11:30 by Irais Cam RN) Smoking Status: Never smoker second hand exposure: No alcohol intake: never substance use type: denies use current occupational status: retired Travel in the last 8 weeks: None household members: other housing: house current occupational exposures/hazards: No caffeine: Yes PM Subjective & Objective Subjective Subjective:: Patient is a pleasant 79-year-old female who presents today for follow-up. Today she rates her pain a 2 out of 10. Patient states the only change from our last visit was that she was spraying weeds and ended up getting sprayed in the face if she does have a rash/abrasions to her face. She states that it is doing much better than it was last week where she had to end up canceling the appointment. Patient does state that she did get the compounded cream and that it is significantly helping. Patient states that it does kick in with about 20 seconds and makes a huge difference. Patient is asking if she can use it on her knee. Her Ori has been reviewed and is appropriate. Review of Systems: General: No recent weight changes, no fever, no sleep disturbances Respiratory: No cough, no shortness of air, no recurring pulmonary infections Cardiovascular/peripheral vascular: No chest pain, no palpitations, no edema, no shortness of breath Gastrointestinal: No new onset incontinence, normal bowel movements reported Genitourinary: No new onset incontinence Musculoskeletal: Low back pain, knee pain Psychiatric: [Normal mood/affect] Neurological: [Denies weakness in extremities], [denies balance issues] Pain at rest (0-10 scale): 2 Objective Objective:: Physical Exam: General: Alert and oriented x3, no acute distress, pleasant and cooperative Lungs: Respirations even and unlabored, symmetrical chest expansion Eyes: PERRL Musculoskeletal: Flexion and extension of lumbar [spine] somewhat guarded secondary to pain, [antalgic gait noted] Neurological: Speech clear, no gross sensory deficit Has patient had previous pain injection?: No Conservative treatment options previously tried: Home exercise plan Length of treatment: Longer than 12 weeks Meds Home Medications and Allergies Home Medications ?Medication ?Instructions ?Recorded ?Confirmed ?Type losartan 100 mg tablet 100 mg PO DAILY BLOOD PRESSURE 90 05/28/18 07/30/24 History days ##90 nifedipine 90 mg tablet,extended 90 mg PO DAILY BLOOD PRESSURE 30 05/28/18 07/30/24 History release days ##30 buspirone 10 mg tablet 10 mg PO BID Anxiety 07/25/21 07/30/24 History alprazolam 0.5 mg tablet 0.5 mg PO BID PRN Anxiety 12/14/21 07/30/24 History aspirin 81 mg tablet,delayed 81 mg PO DAILY heart health 12/14/21 07/30/24 History release calcium carbonate 200 mg calcium 1 tab PO BID Supplement 12/14/21 07/30/24 History (500 mg)-vitamin D3 400 unit tablet carvedilol 12.5 mg tablet 12.5 mg PO BID High blood pressure 12/14/21 07/30/24 History chlorthalidone 25 mg tablet 25 mg PO DAILY Supplement 12/14/21 07/30/24 History docusate sodium 100 mg capsule 100 mg PO DAILY PRN stool softener 12/14/21 07/30/24 History (Stool Softener) escitalopram oxalate 10 mg tablet 10 mg PO DAILY Depression 12/14/21 07/30/24 History linagliptin 5 mg tablet (Tradjenta) 5 mg PO DAILY Diabetes 12/14/21 07/30/24 History metformin 1,000 mg tablet 1,000 mg PO BID BLOOD SUGAR 12/14/21 07/30/24 History polyethylene glycol 3350 17 gram 17 g PO DAILY PRN constipation 12/14/21 07/30/24 History oral powder packet (Miralax) albuterol sulfate 90 mcg/actuation 1 mcg inhalation DAILY 09/04/23 07/30/24 History aerosol inhaler (Ventolin HFA) fexofenadine 30 mg tablet 30 mg PO DAILY 10/25/23 07/30/24 History lansoprazole 30 mg capsule,delayed 30 mg PO DAILY 12/05/23 07/30/24 History release zuhoywwe-fezjbij-hzkl-lutein tablet 1 tab PO DAILY Supplement 12/05/23 07/30/24 History atorvastatin 80 mg tablet See Rx Instructions .Route 12/09/23 07/30/24 Rx .COMPLEX #90 tabs peg 3350-electrolytes 236 240 ml PO Q10M bowel prep #4,000 mL 01/03/24 07/30/24 Rx gram-22.74 gram-6.74 gram-5.86 gram solution (GaviLyte-G) New Prescriptions to Start Prescriptions: Allergies Allergy/AdvReac Type Severity Reaction Status Date / Time hydralazine Allergy Verified 01/16/24 13:13 Assessment and Plan *Assessment and plan (1) Degenerative disc disease, lumbar: Status: Acute Category: Medical Code(s): M51.36 - Other intervertebral disc degeneration, lumbar region (2) Sacroiliitis: Status: Acute Category: Medical Code(s): M46.1 - Sacroiliitis, not elsewhere classified Plan Patient did get significant improvement following her compounded cream and does not need any injections at this time. I have counseled her to let us know if anything changes however we will plan on seeing her back in 2 months for reevaluation of symptoms and plan of care. Patient has been instructed to contact the clinic with any concerns before the next appointment. Dr. Dixon has reviewed this note and agrees with this plan of care. This note was dictated using voice recognition software and make contain errors or omissions. All injections are used with Lidocaine or Bupivacaine and Depo Medrol.
== END 2024-07-30 23:59 | disposition home or self-care (01) ==
LOC: SC.PAIN 13:22
PROVIDERS: PCP Internal Medicine Adolescent Medicine; Visit Provider Nurse Practitioner Family
DX: M46.1 Sacroiliitis, not elsewhere classified; M51.369 Other intervertebral disc degeneration, lumbar region without mention of lumbar back pain or lower extremity pain; Z79.899 Other long term (current) drug therapy
CPT/HCPCS: 99212; G0463

== ENCOUNTER 2024-08-19 12:55 | Outpatient (CLI) | payer MEDICARE, MEDICAID, SELFPAY ==
--- NOTE | 2024-08-19 13:03 | US_ITS ---
FINAL REPORT CLINICAL HISTORY: FU THYROID NODULES COMPARISON: 08/22/2023 FINDINGS: Sonographic images of the thyroid gland were obtained. The right thyroid lobe measures 49 mm. in length. The left thyroid lobe measures 39 mm. in length. The thyroid isthmus measures 4 mm. The echogenicity is normal. Several nodules are identified. There is a stable, solid isoechoic nodule in the posterior right lobe of the thyroid measuring 11 x 10 x 7 mm, previously measured 12 x 9 x 9 mm. This is visually stable. Nodule is consistent with TR 3. There is a stable nodule in the isthmus which is solid and isoechoic measuring 16 x 17 x 7 mm, previously measured 16 x 6 x 13 mm. This nodule is consistent with TR 3. No definite new nodules are identified. IMPRESSION: Stable nodules as detailed above, likely multinodular goiter. Consider additional follow-up in 12 months. Reviewed, Interpreted and Dictated by Olaf Daniels III, MD Transcribed by Rose King Authenticated and [facility]
== END 2024-08-19 23:59 | disposition home or self-care (01) ==
LOC: RAD 12:57
PROVIDERS: PCP Internal Medicine Adolescent Medicine; Visit Provider Nurse Practitioner Family
DX: E04.1 Nontoxic single thyroid nodule (principal)
CPT/HCPCS: 76536

== ENCOUNTER 2024-09-24 09:34 | Outpatient (POV) | payer MEDICARE, MEDICAID, SELFPAY ==
--- NOTE | 2024-09-24 09:57 | EXP.PAIN.SOA ---
[facility] Disclaimer: The information contained in this section may have been updated after the patient was seen, as this information can be updated by other users. Medical History History of COVID-19 Hyperlipidemia Hypertension Renal artery stenosis Dyspnea Carotid artery stenosis Abnormal electrocardiography Pneumonia Sepsis Hyponatremia Type 2 diabetes mellitus History of cerebrovascular accident Ankle fracture, lateral malleolus, closed Surgical History History of esophagogastroduodenoscopy (EGD) History of colonoscopy History of cholecystectomy H/O carotid endarterectomy Family History Other Family history of diabetes mellitus type II Family history of hypertension Family history of myocardial infarction Social History (Updated 06/24/24 @ 11:30 by Irais Cam RN) Smoking Status: Never smoker second hand exposure: No alcohol intake: never substance use type: denies use current occupational status: retired Travel in the last 8 weeks: None household members: other housing: house current occupational exposures/hazards: No caffeine: Yes PM Subjective & Objective Subjective Subjective:: Patient is a pleasant 79-year-old female who presents today for 2-month follow-up. Today she rates her pain a 0 out of 10. She denies any new trauma or injury from her last appointment. Patient states that the compounded cream has been working wonders for her and that she still feels like overall she does not need anything additional at this time. Her Ori has been reviewed and is appropriate. Review of Systems: General: No recent weight changes, no fever, no sleep disturbances Respiratory: No cough, no shortness of air, no recurring pulmonary infections Cardiovascular/peripheral vascular: No chest pain, no palpitations, no edema, no shortness of breath Gastrointestinal: No new onset incontinence, normal bowel movements reported Genitourinary: No new onset incontinence Musculoskeletal: Low back pain Psychiatric: [Normal mood/affect] Neurological: [Denies weakness in extremities], [denies balance issues] Pain at rest (0-10 scale): 0 Objective Objective:: Physical Exam: General: Alert and oriented x3, no acute distress, pleasant and cooperative Lungs: Respirations even and unlabored, symmetrical chest expansion Eyes: PERRL Musculoskeletal: Flexion and extension of lumbar [spine] somewhat guarded secondary to pain, [antalgic gait noted] Neurological: Speech clear, no gross sensory deficit Has patient had previous pain injection?: No Conservative treatment options previously tried: Home exercise plan Length of treatment: Longer than 12 weeks Meds Home Medications and Allergies Home Medications ?Medication ?Instructions ?Recorded ?Confirmed ?Type losartan 100 mg tablet 100 mg PO DAILY BLOOD PRESSURE 90 05/28/18 07/30/24 History days ##90 nifedipine 90 mg tablet,extended 90 mg PO DAILY BLOOD PRESSURE 30 05/28/18 07/30/24 History release days ##30 buspirone 10 mg tablet 10 mg PO BID Anxiety 07/25/21 07/30/24 History alprazolam 0.5 mg tablet 0.5 mg PO BID PRN Anxiety 12/14/21 07/30/24 History aspirin 81 mg tablet,delayed 81 mg PO DAILY heart health 12/14/21 07/30/24 History release calcium carbonate 200 mg calcium 1 tab PO BID Supplement 12/14/21 07/30/24 History (500 mg)-vitamin D3 400 unit tablet carvedilol 12.5 mg tablet 12.5 mg PO BID High blood pressure 12/14/21 07/30/24 History chlorthalidone 25 mg tablet 25 mg PO DAILY Supplement 12/14/21 07/30/24 History docusate sodium 100 mg capsule 100 mg PO DAILY PRN stool softener 12/14/21 07/30/24 History (Stool Softener) escitalopram oxalate 10 mg tablet 10 mg PO DAILY Depression 12/14/21 07/30/24 History linagliptin 5 mg tablet (Tradjenta) 5 mg PO DAILY Diabetes 12/14/21 07/30/24 History metformin 1,000 mg tablet 1,000 mg PO BID BLOOD SUGAR 12/14/21 07/30/24 History polyethylene glycol 3350 17 gram 17 g PO DAILY PRN constipation 12/14/21 07/30/24 History oral powder packet (Miralax) albuterol sulfate 90 mcg/actuation 1 mcg inhalation DAILY 09/04/23 07/30/24 History aerosol inhaler (Ventolin HFA) fexofenadine 30 mg tablet 30 mg PO DAILY 10/25/23 07/30/24 History lansoprazole 30 mg capsule,delayed 30 mg PO DAILY 12/05/23 07/30/24 History release gsktmwhp-gniypcx-aqob-lutein tablet 1 tab PO DAILY Supplement 12/05/23 07/30/24 History atorvastatin 80 mg tablet See Rx Instructions .Route 12/09/23 07/30/24 Rx .COMPLEX #90 tabs peg 3350-electrolytes 236 240 ml PO Q10M bowel prep #4,000 mL 01/03/24 07/30/24 Rx gram-22.74 gram-6.74 gram-5.86 gram solution (GaviLyte-G) New Prescriptions to Start Prescriptions: Allergies Allergy/AdvReac Type Severity Reaction Status Date / Time hydralazine Allergy Verified 01/16/24 13:13 Assessment and Plan *Assessment and plan (1) Sacroiliitis: Status: Acute Category: Medical Code(s): M46.1 - Sacroiliitis, not elsewhere classified (2) Degenerative disc disease, lumbar: Status: Acute Category: Medical Code(s): M51.369 - Other intervertebral disc degeneration, lumbar region without mention of lumbar back pain or lower extremity pain Plan Patient has continued to do wonderful with just the addition of compounded cream. Patient will return to clinic in 4 months for reevaluation of symptoms and plan of care. Patient has been instructed to contact the clinic with any concerns before the next appointment. Dr. Dixon has reviewed this note and agrees with this plan of care. This note was dictated using voice recognition software and make contain errors or omissions. All injections are used with Lidocaine, Bupivacaine and Depo Medrol. Occasionally urine drug screen is needed to verify patient's compliance with our office pain contract. This is ordered based off specific treatments related to chronic pain with the potential to abuse certain medications.
[2024-09-24 10:22] VITALS: BP 127/68; PULSE 63; O2SAT 98; BMI 25.7
== END 2024-09-24 23:59 | disposition home or self-care (01) ==
LOC: SC.PAIN 09:37
PROVIDERS: PCP Internal Medicine Adolescent Medicine; Visit Provider Nurse Practitioner Family
DX: M46.1 Sacroiliitis, not elsewhere classified (principal); M51.369 Other intervertebral disc degeneration, lumbar region without mention of lumbar back pain or lower extremity pain; Z79.899 Other long term (current) drug therapy
CPT/HCPCS: 99212; G0463

== ENCOUNTER 2024-12-24 14:55 | Outpatient (CLI) | payer MEDICARE, MEDICAID, SELFPAY ==
--- NOTE | 2024-12-24 15:01 | MM_ITS ---
PROCEDURE INFORMATION: Exam: MG Bilateral Screening 3D Mammography Exam date and time: 12/24/2024 3:08 PM Age: 79 years old Clinical indication: Screening. No family history of breast cancer. TECHNIQUE: Imaging protocol: Bilateral Screening tomosynthesis and 2D mammography including computer-aided detection (CAD) when performed. COMPARISON: 1. MG MM DIG SCREENING MAMM BI W/CAD 08/22/2023 2:57 PM 2. MG MM DIG SCREENING MAMM BI W/CAD 07/31/2022 3:46 PM 3. MG MM DIG SCREENING MAMM BI W/CAD 11/03/2020 8:58 AM 4. MG MM DIG SCREENING MAMM BI W/CAD 08/13/2019 1:14 PM FINDINGS: MAMMOGRAPHY: Breast composition: There are scattered areas of fibroglandular density. Mass: No suspicious mass. Architectural distortion: None. Calcifications: No suspicious calcifications. Asymmetric density: None. Skin thickening: None. Axillary adenopathy: None. IMPRESSION: No mammographic evidence of malignancy. Annual screening is recommended unless otherwise clinically indicated. ASSESSMENT: BI-RADS Category 1: Negative.
== END 2024-12-24 23:59 | disposition home or self-care (01) ==
LOC: RAD 14:57
PROVIDERS: PCP Nurse Practitioner Family; Visit Provider Nurse Practitioner Family
DX: Z12.31 Encounter for screening mammogram for malignant neoplasm of breast (principal)
CPT/HCPCS: 77063; 77067

== ENCOUNTER 2025-01-21 08:32 | Outpatient (POV) | payer MEDICARE, MEDICAID, SELFPAY ==
--- NOTE | 2025-01-21 08:59 | EXP.PAIN.SOA ---
[facility] Disclaimer: The information contained in this section may have been updated after the patient was seen, as this information can be updated by other users. Medical History History of COVID-19 Hyperlipidemia Hypertension Renal artery stenosis Dyspnea Carotid artery stenosis Abnormal electrocardiography Pneumonia Sepsis Hyponatremia Type 2 diabetes mellitus History of cerebrovascular accident Ankle fracture, lateral malleolus, closed Surgical History History of esophagogastroduodenoscopy (EGD) History of colonoscopy History of cholecystectomy H/O carotid endarterectomy Family History Other Family history of diabetes mellitus type II Family history of hypertension Family history of myocardial infarction Social History Smoking Status: Never smoker second hand exposure: No alcohol intake: never substance use type: denies use current occupational status: other Travel in the last 8 weeks: None household members: other housing: house current occupational exposures/hazards: No caffeine: Yes PM Subjective & Objective Subjective Subjective:: Patient is a pleasant 79-year-old female who presents today for 4-month follow-up. Today she rates her pain a 0 out of 10 overall in her back pain. She states overall she has done really well from her last appointment and is still using her compounded cream. Patient does make mention from our last visit that she ended up being diagnosed with shingles at the end of last year affecting her left. She states that this was caught late because she did not think that she had gotten some round up spray in her when in fact it was shingles. Patient states that she is still having flareups of pain in and around that area that when it is increased is very bothersome. Her Ori has been reviewed and is appropriate. \ Review of Systems: General: No recent weight changes, no fever, no sleep disturbances Respiratory: No cough, no shortness of air, no recurring pulmonary infections Cardiovascular/peripheral vascular: No chest pain, no palpitations, no edema, no shortness of breath Gastrointestinal: No new onset incontinence, normal bowel movements reported Genitourinary: No new onset incontinence Musculoskeletal: Left eye pain Psychiatric: [Normal mood/affect] Neurological: [Denies weakness in extremities], [denies balance issues] Pain at rest (0-10 scale): 0 Objective Objective:: Physical Exam: General: Alert and oriented x3, no acute distress, pleasant and cooperative Lungs: Respirations even and unlabored, symmetrical chest expansion Eyes: PERRL Musculoskeletal: Flexion and extension of lumbar [spine] somewhat guarded secondary to pain, [antalgic gait noted] Neurological: Speech clear, no gross sensory deficit Has patient had previous pain injection?: No Conservative treatment options previously tried: Home exercise plan Length of treatment: Longer than 12 weeks Meds Home Medications and Allergies Home Medications ?Medication ?Instructions ?Recorded ?Confirmed ?Type losartan 100 mg tablet 100 mg PO DAILY BLOOD PRESSURE 90 05/28/18 01/04/25 History days ##90 nifedipine 90 mg tablet,extended 90 mg PO DAILY BLOOD PRESSURE 30 05/28/18 01/04/25 History release days ##30 buspirone 10 mg tablet 10 mg PO BID Anxiety 07/25/21 01/04/25 History alprazolam 0.5 mg tablet 0.5 mg PO BID PRN Anxiety 12/14/21 01/04/25 History aspirin 81 mg tablet,delayed 81 mg PO DAILY heart health 12/14/21 01/04/25 History release calcium carbonate 200 mg calcium 1 tab PO BID Supplement 12/14/21 01/04/25 History (500 mg)-vitamin D3 400 unit tablet carvedilol 12.5 mg tablet 12.5 mg PO BID High blood pressure 12/14/21 01/04/25 History chlorthalidone 25 mg tablet 25 mg PO DAILY Supplement 12/14/21 01/04/25 History docusate sodium 100 mg capsule 100 mg PO DAILY PRN stool softener 12/14/21 01/04/25 History (Stool Softener) escitalopram oxalate 10 mg tablet 10 mg PO DAILY Depression 12/14/21 01/04/25 History linagliptin 5 mg tablet (Tradjenta) 5 mg PO DAILY Diabetes 12/14/21 01/04/25 History metformin 1,000 mg tablet 1,000 mg PO BID BLOOD SUGAR 12/14/21 01/04/25 History polyethylene glycol 3350 17 gram 17 g PO DAILY PRN constipation 12/14/21 01/04/25 History oral powder packet (Miralax) albuterol sulfate 90 mcg/actuation 1 mcg inhalation DAILY 09/04/23 01/04/25 History aerosol inhaler (Ventolin HFA) fexofenadine 30 mg tablet 30 mg PO DAILY 10/25/23 01/04/25 History lansoprazole 30 mg capsule,delayed 30 mg PO DAILY 12/05/23 01/04/25 History release foxbbhnn-qobtykj-abdf-lutein tablet 1 tab PO DAILY Supplement 12/05/23 01/04/25 History peg 3350-electrolytes 236 240 ml PO Q10M bowel prep #4,000 mL 01/03/24 01/04/25 Rx gram-22.74 gram-6.74 gram-5.86 gram solution (GaviLyte-G) atorvastatin 80 mg tablet See Rx Instructions .Route 11/30/24 01/04/25 Rx .COMPLEX #90 tabs New Prescriptions to Start Prescriptions: Allergies Allergy/AdvReac Type Severity Reaction Status Date / Time hydralazine Allergy Verified 01/04/25 08:42 Assessment and Plan *Assessment and plan (1) Postherpetic neuralgia: Status: Acute Category: Medical Code(s): B02.29 - Other postherpetic nervous system involvement Plan Patient's back is continuing to do well however she does have residual symptoms from her shingles from the end of last year. Patient's symptoms are consistent with postherpetic neuralgia. I did discuss with the patient due to her worsening pain in and around the left eye that she may be a beneficial candidate of a left supraorbital nerve block. Risk and benefits were discussed with her and her daughter and at this time she would like to wait. I did child guidance counselor the patient that if the pain does get increasingly worse between now and her next visit she can call our office and we will see about getting her scheduled over the phone for this procedure. Patient has been dealing with the residual effects of her shingles for longer than 4 months. She has tried oral medications, heat and ice, topicals, at home stretching exercise for longer than 12 weeks. Patient will be given a tentative 6-month follow-up. Patient has been instructed to contact the clinic with any concerns before the next appointment. Dr. Dixon has reviewed this note and agrees with this plan of care. This note was dictated using voice recognition software and make contain errors or omissions. All injections are used with Lidocaine, Bupivacaine and Depo Medrol. Occasionally urine drug screen is needed to verify patient's compliance with our office pain contract. This is ordered based off specific treatments related to chronic pain with the potential to abuse certain medications.
[2025-01-21 10:29] VITALS: BP 105/54; PULSE 59; RESP 14; O2SAT 96; BMI 27.3
== END 2025-01-21 23:59 | disposition home or self-care (01) ==
LOC: SC.PAIN 08:34
PROVIDERS: PCP Internal Medicine Adolescent Medicine; Visit Provider Nurse Practitioner Family
DX: B02.29 Other postherpetic nervous system involvement (principal)
CPT/HCPCS: 99212; G0463

== ENCOUNTER 2025-04-12 12:56 | Outpatient (CLI) | payer MEDICARE, MEDICAID, SELFPAY ==
--- OUTSIDE RECORDS SUMMARY | 2025-04-12 12:59 | XMS_ITS | Clinical Summary ---
Author Organization [facility] Address [address] [place] [address] Phone Care Team Providers Care End User Support Specialist Name Role Phone Trista Olmedo Unavailable Conditions or Problems Problem Name Problem Code Onset Date Status Entry Date Provider Comment Standard Description Annotate COVID-19 coronavirus infection 870346232 (SNOMED CT) 07/06 Inactive 07/06 Trista Olmedo COVID-19 Neutrophilic leukemoid reaction 95193646 (SNOMED CT) Active Trista Olmedo Leukemoid reaction Acute and chronic respiratory failure with hypoxia 47374404 (SNOMED CT) 07/06 Active 07/06 Trista Olmedo Lznke-eq-ionsu ic respiratory failure DM II with diabetic PVD 003411861 (SNOMED CT) 07/06 Active 07/06 Trista Olmedo Peripheral vascular disease COVID-19 coronavirus infection 389091361 (SNOMED CT) 07/06 Removed 07/06 Trista Olmedo COVID-19 COVID-19 coronavirus Pneumonia (J12.82) 197977434 (SNOMED CT) 07/06 Active 07/06 Trista Olmedo COVID-19 Acute respiratory failure with hypoxia 37584819 (SNOMED CT) 07/06 Inactive 07/06 Trista Olmedo Acute respiratory failure DM Type II E11.9 (ICD-10-CM ) 07/06 Inactive 07/06 Trista Olmedo Type 2 diabetes mellitus without complications Benign Essential Hypertension 25041182 (SNOMED CT) 07/06 Active 07/06 Trista Olmedo Benign hypertension Medications Medication Instructions Start Date Stop Date Generic Name NDC Provider MUCUS ER 600MG TAB MUCUS ER 600MG TAB Chacho Banda PREDNISONE 10 MG TABS prednisone 47227304555 Chacho Banda SULFAMETHOXAZOLE -TRIMETHOPRIM 800-160 MG TABS sulfamethoxazol e-trimethoprim 89910894432 Chacho Banda ALBUTEROL SULFATE HFA 108 (90 Base) MCG/ACT AERS albuterol sulfate 18097864253 Chacho Banda CARVEDILOL 6.25 MG TABS carvedilol 56742384009 Chacho Banda AMOXICILLIN-POT CLAVULANATE 875-125 MG TABS TAKE 1 TABLET BY MOUTH TWICE DAILY FOR 6 DAYS amoxicillin-pot clavulanate 77724352780 Chacho Banda BUSPIRONE HCL 10 MG TABS buspirone 55604005173 Chacho Banda LOSARTAN POTASSIUM 100 MG TABS TAKE 1 TABLET BY MOUTH ONCE DAILY losartan 51327638188 Chacho Banda ATORVASTATIN CALCIUM 20 MG TABS TAKE 1 TABLET BY MOUTH ONCE DAILY AT BEDTIME atorvastatin 96012988080 Chacho Banda NIFEDIPINE ER 90 MG [id number] nifedipine 17923191398 Chacho Banda METFORMIN HCL 500 MG TABS TAKE 1 TABLET BY MOUTH TWICE DAILY metformin 07617339593 Chacho Banda TRADJENTA 5 MG TABS TAKE 1 TABLET BY MOUTH ONCE DAILY linagliptin 19578077707 Chacho Banda ALPRAZOLAM 0.5 MG TABS alprazolam 91861715402 Chacho Banda CHLORTHALIDONE 25 MG TABS TAKE 1 TABLET BY MOUTH ONCE DAILY. STOP FUROSEMINDE AND HYDROCHOROTHIAZIDE chlorthalidone 94539198235 Chacho Banda CLONIDINE HCL 0.1 MG TABS clonidine hcl 93610358499 Chacho Banda DOXYCYCLINE HYCLATE 100 MG CAPS doxycycline hyclate 46171511951 Chacho Banda LYNDSAY ASPIRIN EC LOW DOSE 81 MG TBEC once a day aspirin 77732084369 Chacho Banda CALCIUM 600 1500 (600 Ca) MG TABS calcium carbonate 88174190455 Chacho Banda ZYRTEC ALLERGY 10 MG TABS cetirizine 51227114500 Chacho Banda Medications Administered No information available. 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 Procedures No information available. Vital Signs No information available. Immunizations No information available. Advance Directives No information available.
--- NOTE | 2025-04-12 13:00 | CA_ITS ---
FINAL REPORT TECHNIQUE: Color Doppler, duplex Doppler and compression sonography of the left lower extremity deep venous systems was performed. CLINICAL HISTORY: edema, HTN, HLD, DM. left foot and ankle edema x 1 week. Denies trauma. COMPARISON: I am FINDINGS: There is no evidence of deep venous thrombosis from the level of the groin to the calf. The veins are patent and compressible. IMPRESSION: No evidence of deep venous thrombosis left lower extremity. Reviewed, Interpreted and Dictated by Ovidio Gaming MD Transcribed by Allyn Burgos Authenticated and [facility]
--- OUTSIDE RECORDS SUMMARY | 2025-04-12 13:00 | XMS_ITS | Clinical Summary ---
Author Organization [facility] Address [address] [place] [address] Care Team Providers Care Escrow Processor Name Role Phone AlpaGwen torres Mitra MAYER Primary Care Provider [phone] Allergies Active Allergy Reactions Criticality Noted Date Comments Hydralazine Cough,Other - please document in the comment field,Swelling High 04/11/2018 cough Medications Ventolin HFA 108 (90 Base) MCG/ACT inhaler Inhale 2 puffs every 6 (six) hours. 08/22/2023 Active atorvastatin (Lipitor) 80 MG tablet Take 1 tablet (80 mg) by mouth 1 (one) time each day. 06/20/2023 Active busPIRone (Buspar) 10 MG tablet Take 1 tablet (10 mg) by mouth 2 (two) times a day. 06/14/2023 Active calcium carbonate (Os-Emanuel) 600 MG tablet Take 1 tablet (600 mg) by mouth 2 (two) times a day with meals. Active carvedilol (Coreg) 12.5 MG tablet Take 1 tablet (12.5 mg) by mouth 2 (two) times a day with meals. 07/27/2023 Active chlorthalidone (Hygroton) 25 MG tablet Take 1 tablet (25 mg) by mouth 1 (one) time each day. 07/11/2023 Active escitalopram (Lexapro) 10 MG tablet Take 1 tablet (10 mg) by mouth every night. 07/29/2023 Active Tradjenta 5 MG tablet Take 1 tablet (5 mg) by mouth 1 (one) time each day. Active losartan (Cozaar) 100 MG tablet Take 1 tablet (100 mg) by mouth 1 (one) time each day. 07/11/2023 Active metFORMIN (Glucophage) 1000 MG tablet Take 1 tablet (1,000 mg) by mouth 2 (two) times a day. 06/14/2023 Active NIFEdipine CC (Adalat CC) 90 MG 24 hr tablet Take 1 tablet (90 mg) by mouth 1 (one) time each day. 07/30/2023 Active aspirin 81 MG EC tablet Take 1 tablet (81 mg) by mouth 1 (one) time each day. Active fexofenadine (Shante) 180 MG tablet Take 1 tablet (180 mg) by mouth 1 (one) time each day. Active Multiple Vitamins-Mineral s (CENTRUM SILVER 50+WOMEN PO) Take 1 tablet by mouth 1 (one) time each day. Active Active Problems Problem Noted Date Diagnosed Date Lower GI bleed 08/23/2023 Immunizations Immunization Administration Dates Next Due Pneumococcal Conjugate PCV 13 10/27/2020 Pneumococcal Polysaccharide PPV23 01/22/2023,05/2018 Td (adult), 5 Lf tetanus tox oid, preservative free, adsorbed 02/26/2007 Social History Tobacco Use Types Packs/Day Years Used Date Smoking Tobacco: Never Smokeless Tobacco: Never Tobacco Cessation:Counseling Given: Not Answered Alcohol Use Standard Drinks/Week Comments Never 0 (1 standard drink = 0.6 oz pur e alcohol) CAGE ASSESSMENT Answer Date Recorded Cage unable to access Not on file 08/24/2023 Cage max number of drinks Not on file 2022 Cage Beverages a week Not on file 08/24/2023 Have you ever felt you should CUT down on your d rinking? 0 08/24/2023 Have you been ANNOYED by people criticizing your drinking? 0 08/24/2023 Have you felt GUILTY about your drinking? 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 0 08/24/2023 CAGE Questionnaire Score 0 023 Comments Unknown Sex and Gender Information Value Date Recorded Sex Assigned at Not on file Legal Sex Female 8:02 PM EDT Gender Identity Not on file Sexual Orientation Not on file Last Filed Vital Signs Vital Sign Reading Time Taken Comments Blood Pressure 107/62 08/25/2023 2:58 PM EST Pulse 64 08/25/2023 2:58 PM EST Temperature 36.5 C (97.7 F) 08/25/2023 2:58 PM EST Respiratory Rate 17 08/23/2023 4:50 PM EST Oxygen Saturation 93% 08/25/2023 2:58 PM EST Inhaled Oxygen Concentration - - Weight - - Height - - Body Mass Index - - Plan of Treatment Health Maintenance Due Date Last Done Comments [facility]Y-Bone Density Scan 1945 [facility]-Depression Screening 1945 UKY-Medicare Annual Wellness (AWV) 1945 [facility]Y-/Child/Adol SDOH Screenings 1945 UKY- SDOH Screenings 1964 UKY-Adult SDOH Screenings 1964 UKY-Zoster Vaccines (1 of 2) 1996 UKY-DTaP,Tdap,and Td Vaccines (1 - Tdap) 02/27/2007 02/26/2007 UKY-RSV Vaccine: 60+ Years or (1 - 1-dose 75+ series) 2021 [id number] Vaccine (1 - season) 2024 UKY-Influenza Vaccine (#1) 2025 UKY-Diabetes: Hemoglobin A1C Discontinued , 04/11/2018 UKY-Pneumococcal Vaccine: 50+ Years Completed 01/22/2023, 10/27/2020, 04/13/2018 [facility]Y-Hepatitis C Screening Completed 08/23/2023 HPV Vaccines Aged Out No longer eligi ble based on patient's age to complete this topic UKY-HIB Vaccines Aged Out No longer e ligible based on patient's age to complete this topic UKY-Hepatitis A Vaccines Aged Out No longer eligible based on patient's age to complete this topic UKY-IPV Vaccines Aged Out No longer e ligible based on patient's age to complete this topic UKY-Rotavirus Vaccines Aged Out No lo nger eligible based on patient's age to complete this topic Procedures Procedure Name Priority Date/Time Associated Diagnosis Comments HEPATITIS C ANTIBODY - ED W/REFLEX TO HCV QUANT PCR STAT 08/23/2023 12:25 PM EST HEMOGLOBIN A1C Routine 04/11/2018 9:04 PM EDT from Last 3 Months or Most Recently Relevant to Health Maintenance Results * Hepatitis C Antibody - ED (08/23/2023 12:25 PM EST) Hepatitis C Antibody Negative Negative 08/23/2023 1:59 PM EST [facility] Blood Venous blood specimen / Unknown Venipuncture / Unknown 08/23/2023 12:25 PM EST 08/23/2023 12:30 PM EST Ashtyn Ornelas MD LAB BLOOD ORDERABLES Final R esult [facility] [address] [place] [address] * (ABNORMAL) Hemoglobin A1c (04/11/2018 9:04 PM EDT) Hemoglobin A1c 8.0(H) 4.7 - 6.0 % [facility] Comment: Glycohemoglobin Reference Range, 0 years and up: 4.7 to 6.0% . HA1C Interpretive Data: Diagnosis of Diabetes: Diabetic > or = 6.5% Pre-diabetic 5.7 to 6.4% Non-diabetic < or = 5.6% . Glycemic Targets for Type I and Type II Diabetics: Non- Adults <7.0% Adults <6.0% Children and Adolescents <7.5% . Source: [place] [employer]. Standards of medical care in diabetes, 2017. Diabetes Care.2017:40 (suppl 1):S1-S135. . HbA1c assay performed by an ion-exchange chromatography method that is certified traceable to the DCCT. 04/11/2018 9:04 PM EDT 04/11/2018 9:09 PM EDT us Cara [facility] BLOOD ORDERABLES Final Resul t [facility] from Last 3 Months or Most Recently Relevant to Health Maintenance Insurance MEDICARE Advance Directives * Full Code (Latest Code Status on File) Date Activated Date Inactivated Comments 08/23/2023 1:29 PM 08/25/2023 6:12 PM Question Answer Comments Patient has decision-making capacity? Yes Care Teams Escrow Processor Relationship Specialty Start Date End Date Gwen Yuen APRN [address] [place] [id number] PCP - General 02/17/21
--- NOTE | 2025-04-12 13:45 | CA_ITS ---
FINAL REPORT TECHNIQUE: Color Doppler, duplex Doppler and compression sonography of the right lower extremity venous system was performed. CLINICAL HISTORY: edema, HTN, HLD, DM. Denies trauma. COMPARISON: None FINDINGS: There is no evidence of deep venous thrombosis from the level of the groin to the calf. The veins are patent and compressible. IMPRESSION: No evidence of deep venous thrombosis right lower extremity. Reviewed, Interpreted and Dictated by Ovidio Gaming MD Transcribed by Allyn Burgos Authenticated and . [facility]
== END 2025-04-12 23:59 | disposition home or self-care (01) ==
LOC: RT 12:57
PROVIDERS: PCP Internal Medicine Adolescent Medicine; Visit Provider Nurse Practitioner
DX: E78.5 Hyperlipidemia, unspecified (principal); I10 Essential (primary) hypertension; E11.9 Type 2 diabetes mellitus without complications; R60.0 Localized edema
CPT/HCPCS: 93971

== ENCOUNTER 2025-05-17 10:44 | Outpatient (CLI) | payer MEDICARE, MEDICAID, SELFPAY ==
--- NOTE | 2025-05-17 10:50 | CA_ITS ---
FINAL REPORT TECHNIQUE: Smyth scale, color and spectral doppler images of the bilateral carotid arteries were obtained. CLINICAL HISTORY: [place] FINDINGS: Echogenic material is seen in the distal right CCA and proximal internal in a patient with known right carotid occlusion. The right vertebral artery is normal in direction. Peak systolic velocity in the left internal carotid artery is 123 cm/sec. The internal carotid to common carotid artery ratio is 1.91. There is 50-69% carotid artery stenosis and mild plaque formation. The left vertebral artery is normal in direction. IMPRESSION: Right carotid is occluded, known. 50-69% stenosis on the left. Reviewed, Interpreted and Dictated by Tereza Gómez MD Transcribed by Xochilt Ramirez Authenticated and [facility]
--- OUTSIDE RECORDS SUMMARY | 2025-05-17 10:55 | XMS_ITS | Clinical Summary ---
Author Organization [facility] Address [address] [place] [address] Phone Care Team Providers Care Cnc Mill Operator Name Role Phone Trista Olmedo Unavailable Conditions or Problems Problem Name Problem Code Onset Date Status Entry Date Provider Comment Standard Description Annotate COVID-19 coronavirus infection 540586630 (SNOMED CT) 07/06 Inactive 07/06 Trista Olmedo COVID-19 Neutrophilic leukemoid reaction 09175086 (SNOMED CT) Active Trista Olmedo Leukemoid reaction Acute and chronic respiratory failure with hypoxia 19532643 (SNOMED CT) 07/06 Active 07/06 Trista Olmedo Jaula-md-qzojq ic respiratory failure DM II with diabetic PVD 751005483 (SNOMED CT) 07/06 Active 07/06 Trista Olmedo Peripheral vascular disease COVID-19 coronavirus infection 245029348 (SNOMED CT) 07/06 Removed 07/06 Trista Olmedo COVID-19 COVID-19 coronavirus Pneumonia (J12.82) 063279585 (SNOMED CT) 07/06 Active 07/06 Trista Olmedo COVID-19 Acute respiratory failure with hypoxia 36012154 (SNOMED CT) 07/06 Inactive 07/06 Trista Olmedo Acute respiratory failure DM Type II E11.9 (ICD-10-CM ) 07/06 Inactive 07/06 Trista Olmedo Type 2 diabetes mellitus without complications Benign Essential Hypertension 94667888 (SNOMED CT) 07/06 Active 07/06 Trista Olmedo Benign hypertension Medications Medication Instructions Start Date Stop Date Generic Name NDC Provider MUCUS ER 600MG TAB MUCUS ER 600MG TAB Chacho Badna PREDNISONE 10 MG TABS prednisone 51243589285 Chacho Banda SULFAMETHOXAZOLE -TRIMETHOPRIM 800-160 MG TABS sulfamethoxazol e-trimethoprim 00305815742 Chacho Banda ALBUTEROL SULFATE HFA 108 (90 Base) MCG/ACT AERS albuterol sulfate 10880755469 Chacho Banda CARVEDILOL 6.25 MG TABS carvedilol 11211924594 Chacho Banda AMOXICILLIN-POT CLAVULANATE 875-125 MG TABS TAKE 1 TABLET BY MOUTH TWICE DAILY FOR 6 DAYS amoxicillin-pot clavulanate 67346839860 Chacho Banda BUSPIRONE HCL 10 MG TABS buspirone 02785137730 Chacho Banda LOSARTAN POTASSIUM 100 MG TABS TAKE 1 TABLET BY MOUTH ONCE DAILY losartan 61616982356 Chacho Banda ATORVASTATIN CALCIUM 20 MG TABS TAKE 1 TABLET BY MOUTH ONCE DAILY AT BEDTIME atorvastatin 22503048994 Chacho Banda NIFEDIPINE ER 90 MG [id number] nifedipine 14869887906 Chacho Banda METFORMIN HCL 500 MG TABS TAKE 1 TABLET BY MOUTH TWICE DAILY metformin 55895218972 Chacho Banda TRADJENTA 5 MG TABS TAKE 1 TABLET BY MOUTH ONCE DAILY linagliptin 28956843343 Chacho Banda ALPRAZOLAM 0.5 MG TABS alprazolam 12851991824 Chacho Banda CHLORTHALIDONE 25 MG TABS TAKE 1 TABLET BY MOUTH ONCE DAILY. STOP FUROSEMINDE AND HYDROCHOROTHIAZIDE chlorthalidone 37340504952 Chacho Banda CLONIDINE HCL 0.1 MG TABS clonidine hcl 40148556774 Chacho Banda DOXYCYCLINE HYCLATE 100 MG CAPS doxycycline hyclate 01880181034 Chacho Banda LYNDSAY ASPIRIN EC LOW DOSE 81 MG TBEC once a day aspirin 36863341401 Chacho Banda CALCIUM 600 1500 (600 Ca) MG TABS calcium carbonate 63587154364 Chacho Banda ZYRTEC ALLERGY 10 MG TABS cetirizine 75328475879 Chacho Banda Medications Administered No information available. 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 Procedures No information available. Vital Signs No information available. Immunizations No information available. Advance Directives No information available.
--- OUTSIDE RECORDS SUMMARY | 2025-05-17 10:56 | XMS_ITS | Clinical Summary ---
Author Organization [facility] Address [address] 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 Source: [place] Diabetes Association. Standards of medical care in [...] Patient has decision-making capacity? Yes Care Teams Lead Web Application Developer Relationship Specialty Start Date End Date Gwen Yuen APRN [address] [place] [id number] PCP - General 02/17/21
--- OUTSIDE RECORDS SUMMARY | 2025-05-17 10:56 | XMS_ITS | Clinical Summary ---
Author Organization [facility] Address [address] [place] [address] Care Team Providers Care Clinical Specialist Name Role Phone Ed Stevens MD Primary Care Provider [phone] Allergies Active Allergy Reactions Criticality Noted Date Comments Hydralazine Swelling,Cough High 01/14/2019 Medications atorvastatin (LIPITOR) 20 MG tablet Take 4 tablets by mouth Every Night. 11/21/19 19 Active busPIRone (BUSPAR) 10 MG tablet Take 1 tablet by mouth 2 (two) times a day. 11/21/19 19 Active losartan (COZAAR) 100 MG tablet Take 1 tablet by mouth Daily. 01/03/20 19 Active metFORMIN ER (GLUCOPHAGE-XR ) 500 MG 24 hr tablet Take by mouth 2 (two) times a day. 11/21/19 19 Active NIFEdipine CC (ADALAT CC) 90 MG 24 hr tablet Take 1 tablet by mouth Daily. 11/03/19 19 Active calcium carbonate (OS-KOBY) 600 MG tablet Take 1 tablet by mouth 2 (Two) Times a Day With Meals. Active Multiple Vitamins-Security Engineer als (CENTRUM SILVER PO) Take 1 tablet by mouth Daily. Active aspirin 81 MG chewable tablet Chew 1 tablet Daily. Active linagliptin (TRADJENTA) 5 MG tablet tablet Take 1 tablet by mouth Daily. Active chlorthalidone (HYGROTON) 25 MG tablet TAKE 1 TABLET BY MOUTH ONCE DAILY. STOP FUROSEMINDE AND HYDROCHOROTHIAZIDE 30 tablet 05/15/20 21 Active ALPRAZolam (XANAX) 0.5 MG tablet Take 1 tablet by mouth 2 (Two) Times a Day As Needed for Anxiety. Active carvedilol (COREG) 6.25 MG tablet Take 1 tablet by mouth 2 (Two) Times a Day With Meals. 60 tablet 07/15/20 Active Additional Information Patient taking differently: 12.5 mgOral 2 Times Daily With Meals, Informant: Self, Reported on 05/21/2024 albuterol (PROVENTIL) (2.5 MG/3ML) 0.083% nebulizer solution Take 2.5 mg by nebulization Every 6 (Six) Hours As Needed for Shortness of Air. 3 mL 07/15/20 Active clopidogrel (PLAVIX) 75 MG tablet Take 1 tablet by mouth Daily. Active Jardiance 10 MG tablet tablet Take 1 tablet by mouth Daily. 05/12/20 Active tiZANidine (ZANAFLEX) 2 MG tablet Take 1 tablet by mouth 3 times a day. 02/18/20 Active lansoprazole (PREVACID) 30 MG capsule take 1 capsule by mouth once daily for 90 days Active escitalopram (LEXAPRO) 10 MG tablet Take 1 tablet by mouth Daily. 04/16/20 Active Active Problems Problem Noted Date Diagnosed Date Cytokine release syndrome, grade 1 07/15/2021 Prior history of Pneumonia due to COVID-19 virus 06/18/2021 Hyperlipidemia 01/23/2019 History of CVA (cerebrovascular accident) 2018 Stenosis of left carotid artery s/p left CEA 201 9 01/20/2019 Essential hypertension 01/20/2019 Type 2 diabetes mellitus wit h complication, without long-term current use of insulin 01/20/2019 Right carotid artery occlusion 01/14/2019 Resolved Problems Problem Noted Date Diagnosed Date Resolved Date Acute on chronic respiratory failure with hypoxia 07/07/2021 04/26/2022 Lactic acidosis 07/07/2021 04/26/2022 Cytokine release syndrome, grade 2 06/30/2021 07/07/2021 Acute respiratory failure with hypoxia 06/18/2021 04/26/2022 Hyponatremia 06/18/2021 04/26/2022 Hypokalemia 06/18/2021 04/26/2022 Left hand pain 01/23/2019 04/26/2022 Leukocytosis 01/23/2019 04/26/2022 PNA (pneumonia) 01/22/2019 04/26/2022 Carotid stenosis, asymptomatic, left 01/14/2019 01/20/2019 Family History Medical History Relation Name Comments Heart attack Brother 1 Lung cancer Brother 2 Diabetes Father Heart attack Father Diabetes Mother Hypertension Mother Lung cancer Sister 1 Liver cancer Sister 2 Lung cancer Sister 3 Relation Name Status Comments Brother 1 Brother 2 Father Mother Sister 1 Sister 2 Sister 3 Sister 4 in a car w ayde Social History Tobacco Use Types Packs/Day Years Used Date Smoking Tobacco: Never Smokeless Tobacco: Never Tobacco Cessation:Counseling Given: Not Answered Alcohol Use Standard Drinks/Week Comments Yes 0 (1 standard drink = 0.6 oz pur e alcohol) occassional Abuse Screen Answer Date Recorded Unsafe at Home or Work/School Not on file Feels Threatened by Someone? Not on file 09/2023 Does Anyone Keep You from Co ntacting Others or Doint Things Outside the Home? Not on file 07/18/2023 Physical Sign of Abuse Present Not on file 1 Housing Stability Answer Date Recorded Current Living Arrangements Not on file 07/07 Potentially Unsafe Housing Conditions Not on shashi e 07/18/2023 Family and Community Support Answer Rmairo e Recorded Help with Day-to-Day Activities Not on file 07/18/2023 Lonely or Isolated Not on file 07/18/2023 Employment Answer Date Recorded Do you want help finding or keeping work or a axel b? Not on file 07/18/2023 Disabilities Answer Date Recorded Concentrating, Remembering, or Making Decisions Difficulty Not on file 07/18/2023 Doing Errands Independently Difficulty Not on fi le 07/18/2023 Education Answer Date Recorded Help with school or training? 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 Not on file Not on file Not o n file Last Filed Vital Signs Vital Sign Reading Time Taken Comments Blood Pressure 128/70 05/21/2024 11:15 AM EDT Pulse 76 05/21/2024 11:13 AM EDT Temperature 37 C (98.6 F) 05/21/2024 11:13 AM EDT Respiratory Rate 18 07/15/2021 10:21 AM EDT Oxygen Saturation 98% 05/21/2024 11:13 AM EDT Inhaled Oxygen Concentration - - Weight 69.1 kg (152 lb 6.4 oz) 05/21/2024 11:13 AM EDT Height 160 cm (5' 3 ) 05/21/2024 11:13 AM EDT pe r pt Body Mass Index 27 05/21/2024 11:13 AM EDT Plan of Treatment Health Maintenance Due Date Last Done Comments DXA SCAN 1945 LIPID PANEL 1945 DIABETIC EYE EXAM 1956 DIABETIC FOOT EXAM 1956 URINE MICROALBUMIN-CREATININ E RATIO (uACR) 1956 ZOSTER VACCINE (1 of 2) 1996 TDAP/TD VACCINES (2 - Tdap) 02/26/2017 02/26/2007 ANNUAL WELLNESS VISIT 01/14/2019 HEMOGLOBIN A1C 07/21/2019 01/19/2019, 01/05, 04/11/2018 RSV Vaccine - Adults (1 - 1- dose 75+ series) 2021 COVID-19 Vaccine ( - 2023-2 5 season) 2024 INFLUENZA VACCINE 07/07/2025 COLOGUARD Discontinued 08/17/2022 Pneumococcal Vaccine 50+ Completed 023, 10/27/2020, 04/13/2018 COLON CANCER SCREENING 5 YEA R SIGMOIDOSCOPY Discontinued 08/23/2023 COLORECTAL CANCER SCREENING Discontinued HEPATITIS C SCREENING Completed 08/23/[address] COLONOGRAPHY Discontinued FECAL OCCULT BLOOD TEST Discontinued FIT Testing (1 year) Discontinued Medical Devices Implanted Type Area Inspector Weights And Measures Device Identifier Shelf Expiration Date Model / Serial / Lot Ptc Vascuguard 1x6cm - [id number] Implanted:Qty: 1 on 01/20/2019 by Ryan Rg MD at [facility] Implant [employer] 06/24/2023 [id number] / / [id number] Procedures Procedure Name Priority Date/Time Associated Diagnosis Comments HEMOGLOBIN A1C Routine 01/19/2019 1:41 PM EDT Stenosis of left carotid artery from Last 3 Months or Most Recently Relevant to Health Maintenance Results * (ABNORMAL) Hemoglobin A1c (01/19/2019 1:41 PM EDT) Hemoglobin A1C 7.70(H) 4.80 - 5.60 % 01/19/2019 3:27 PM EDT [facility] Blood Venipuncture / Unknown 01/19/2019 1:41 PM EDT 01/19/2019 2:20 PM EDT Narrative [facility] - 01/19/2019 3:27 PM EDT Hemoglobin A1C Ranges: Increased Risk for Diabetes 5.7% to 6.4% Diabetes >= 6.5% Diabetic Goal < 7.0% [facility] BLOOD ORDERABLES Final Res ult [facility]
[address] [place] [address], from Last 3 Months or Most Recently Relevant to Health Maintenance Insurance MEDICARE A & B Advance Directives * CPR (Attempt to Resuscitate) (Latest Code Status on File) Date Activated Date Inactivated Comments 07/07/2021 4:45 PM 07/15/2021 4:43 PM Question Answer Comments Code Status (Patient has no pulse and is not breathing): CPR (Attempt to Resuscitate) Medical Interventions (Patie nt has pulse or is breathing): Full Level Of Support Discussed With: Patient * CPR (Attempt to Resuscitate) Date Activated Date Inactivated Comments 06/18/2021 10:45 PM 06/30/2021 5:25 PM Question Answer Comments Code Status (Patient has no pulse and is not breathing): CPR (Attempt to Resuscitate) Medical Interventions (Patie nt has pulse or is breathing): Full Level Of Support Discussed With: Patient * CPR (Attempt to Resuscitate) Date Activated Date Inactivated Comments 06/18/2021 6:29 PM 06/18/2021 10:45 PM Question Answer Comments Code Status (Patient has no pulse and is not breathing): CPR (Attempt to Resuscitate) Medical Interventions (Patie nt has pulse or is breathing): Limited Medical Intervention Limits: Intubation * CPR (Attempt to Resuscitate) Date Activated Date Inactivated Comments 01/23/2019 2:03 AM 01/24/2019 1:24 PM Question Answer Comments Code Status (Patient has no pulse and is not breathing): CPR (Attempt to Resuscitate) Medical Interventions (Patie nt has pulse or is breathing): Full * CPR (Attempt to Resuscitate) Date Activated Date Inactivated Comments 01/20/2019 2:16 PM 01/21/2019 2:16 PM Question Answer Comments Code Status (Patient has no pulse and is not breathing): CPR (Attempt to Resuscitate) Medical Interventions (Patie nt has pulse or is breathing): Full Care Teams Clinical Specialist Relationship Specialty Start Date End Date Ed Stevens MD [address] [place] [address] [address] [facility] [place] [address] PCP - General Adolescent Medicine 01/21/19
== END 2025-05-17 23:59 | disposition home or self-care (01) ==
LOC: RT 10:44
PROVIDERS: PCP Internal Medicine Adolescent Medicine; Visit Provider Nurse Practitioner Family
DX: I65.23 Occlusion and stenosis of bilateral carotid arteries (principal)
CPT/HCPCS: 93880

== ENCOUNTER 2025-08-26 08:44 | Outpatient (CLI) | payer MEDICARE, MEDICAID, SELFPAY ==
--- OUTSIDE RECORDS SUMMARY | 2025-08-26 08:46 | XMS_ITS | Clinical Summary ---
Author Organization [facility] Address [address] [place] [address] Phone Care Team Providers Care Adjunct English Instructor Name Role Phone Trista Olmedo Unavailable Conditions or Problems Problem Name Problem Code Onset Date Status Entry Date Provider Comment Standard Description Annotate COVID-19 coronavirus infection 221384421 (SNOMED CT) 07/06 Inactive 07/06 Trista Olmedo COVID-19 Neutrophilic leukemoid reaction 77408711 (SNOMED CT) Active Trista Olmedo Leukemoid reaction Acute and chronic respiratory failure with hypoxia 22698134 (SNOMED CT) 07/06 Active 07/06 Trista Olmedo Ijcgn-xb-kaytx ic respiratory failure DM II with diabetic PVD 621345509 (SNOMED CT) 07/06 Active 07/06 Trista Olmedo Peripheral vascular disease COVID-19 coronavirus infection 976024893 (SNOMED CT) 07/06 Removed 07/06 Trista Olmedo COVID-19 COVID-19 coronavirus Pneumonia (J12.82) 608880768 (SNOMED CT) 07/06 Active 07/06 rTista Olmedo COVID-19 Acute respiratory failure with hypoxia 61459854 (SNOMED CT) 07/06 Inactive 07/06 Trista Olmedo Acute respiratory failure DM Type II E11.9 (ICD-10-CM ) 07/06 Inactive 07/06 Trista Olmedo Type 2 diabetes mellitus without complications Benign Essential Hypertension 64934075 (SNOMED CT) 07/06 Active 07/06 Trista Olmedo Benign hypertension Medications Medication Instructions Start Date Stop Date Generic Name NDC Provider MUCUS ER 600MG TAB MUCUS ER 600MG TAB Chacho Banda PREDNISONE 10 MG TABS prednisone 92011206992 Chacho Banda SULFAMETHOXAZOLE -TRIMETHOPRIM 800-160 MG TABS sulfamethoxazol e-trimethoprim 59009849783 Chacho Banda ALBUTEROL SULFATE HFA 108 (90 Base) MCG/ACT AERS albuterol sulfate 10175196579 Chacho Banda CARVEDILOL 6.25 MG TABS carvedilol 89481760298 Chacho Banda AMOXICILLIN-POT CLAVULANATE 875-125 MG TABS TAKE 1 TABLET BY MOUTH TWICE DAILY FOR 6 DAYS amoxicillin-pot clavulanate 70016759371 Chacho Banda BUSPIRONE HCL 10 MG TABS buspirone 50121537757 Chacho Banda LOSARTAN POTASSIUM 100 MG TABS TAKE 1 TABLET BY MOUTH ONCE DAILY losartan 47083773712 Chacho Banda ATORVASTATIN CALCIUM 20 MG TABS TAKE 1 TABLET BY MOUTH ONCE DAILY AT BEDTIME atorvastatin 39063929540 Chacho Banda NIFEDIPINE ER 90 MG CU01G-POJ nifedipine 14865756292 Chacho Banda METFORMIN HCL 500 MG TABS TAKE 1 TABLET BY MOUTH TWICE DAILY metformin 50908721300 Chacho Banda TRADJENTA 5 MG TABS TAKE 1 TABLET BY MOUTH ONCE DAILY linagliptin 88176463816 Chacho Banda ALPRAZOLAM 0.5 MG TABS alprazolam 09451133492 Chacho Banda CHLORTHALIDONE 25 MG TABS TAKE 1 TABLET BY MOUTH ONCE DAILY. STOP FUROSEMINDE AND HYDROCHOROTHIAZIDE chlorthalidone 55001293442 Chacho Banda CLONIDINE HCL 0.1 MG TABS clonidine hcl 20830134127 Chacho Banda DOXYCYCLINE HYCLATE 100 MG CAPS doxycycline hyclate 04699754179 Chacho Banda LYNDSAY ASPIRIN EC LOW DOSE 81 MG TBEC once a day aspirin 58613652429 Chacho Banda CALCIUM 600 1500 (600 Ca) MG TABS calcium carbonate 69935359819 Chacho Banda ZYRTEC ALLERGY 10 MG TABS cetirizine 73146373019 Chacho Banda Medications Administered No information available. 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 Procedures No information available. Vital Signs No information available. Immunizations No information available. Advance Directives No information available.
--- OUTSIDE RECORDS SUMMARY | 2025-08-26 08:47 | XMS_ITS | Clinical Summary ---
Author Organization [facility] Address [address] 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) to steady your nerves or to [...] Screening 1945 [facility]-Medicare Annual Wellness (AWV) 1945 [facility]-Infant/Child/Adol SDOH Screenings 1945 [facility]- SDOH Screenings 1964 [facility]-Adult SDOH Screenings 1964 [facility]-Zoster Vaccines (1 of 2) 1996 [facility]-DTaP,Tdap,and Td Vaccines (1 - Tdap) 02/27/2007 02/26/2007 [facility]-RSV Vaccine: 60+ Years or (1 - 1-dose 75+ series) 2021 RXY-CRIVE-[id number] Vaccine (1 - 2024- season) 2025 [facility]-Influenza Vaccine (#1) 2025 [facility]-Diabetes: Hemoglobin A1C [...] BLOOD ORDERABLES Final [facility] [address] [place] [id number] * (ABNORMAL) Hemoglobin A1c (04/11/2018 9:04 PM [...] <6.0% Children and Adolescents <7.5% . Source: [place] [employer]. Standards of medical care in [...] Patient has decision-making capacity? Yes Care Teams Delivery Manager Relationship Specialty Start Date End Date Gwen Yuen APRN [address] [place] [id number] PCP - General 02/17/21
--- OUTSIDE RECORDS SUMMARY | 2025-08-26 08:47 | XMS_ITS | Clinical Summary ---
Author Organization [facility] Address [address] [place] [address] Care Team Providers Care Specialist Employee Labor Relations Name Role Phone Ed Stevens MD Primary Care Provider [phone] Allergies Active Allergy Reactions Criticality Noted Date [...] Times a Day With Meals. Active Multiple Vitamins-[place] als (CENTRUM SILVER PO) Take 1 tablet [...] e 07/18/2023 Family and Community Support Answer Ramiro e Recorded Help with Day-to-Day Activities Not [...] Comments DXA SCAN 1945 LIPID PANEL 1945 COVID-19 Vaccine (#1) 1951 DIABETIC EYE EXAM 1956 DIABETIC FOOT EXAM 1956 URINE MICROALBUMIN-CREATININ E RATIO (uACR) 1956 ZOSTER VACCINE (1 of 2) 1996 TDAP/TD VACCINES (2 - Tdap) 02/26/2017 02/26/2007 ANNUAL WELLNESS VISIT 01/14/2019 HEMOGLOBIN A1C 07/21/2019 01/19/2019, 01/05, 04/11/2018 RSV Vaccine - Adults (1 - 1- dose 75+ series) 2021 INFLUENZA VACCINE 05/07/2025 COLOGUARD Discontinued 08/17/2022 Pneumococcal Vaccine 50+ Completed 023, 10/27/2020, 04/13/2018 COLON CANCER SCREENING 5 YEA R SIGMOIDOSCOPY Discontinued 08/23/2023 COLORECTAL CANCER SCREENING Discontinued HEPATITIS C SCREENING Completed 08/23/[address] COLONOGRAPHY Discontinued FECAL OCCULT BLOOD TEST Discontinued FIT Testing (1 year) Discontinued Medical Devices Implanted Type Area Home Appliance Tech Device Identifier Shelf Expiration Date Model / Serial / Lot Ptch Vascuguard 1x6cm - [id number] Implanted:Qty: 1 on 01/20/2019 by Ryan Rg MD at [facility] Implant [employer] 06/24/2023 [id number] / / [id number] Procedures Procedure Name Priority Date/Time Associated Diagnosis Comments HEMOGLOBIN A1C Routine 01/19/2019 1:41 PM EDT Stenosis of left carotid artery from Last 3 Months or Most Recently Relevant to Health Maintenance Results * (ABNORMAL) Hemoglobin A1c (01/19/2019 1:41 PM EDT) Hemoglobin A1C 7.70(H) 4.80 - 5.60 % 01/19/2019 3:27 PM EDT [facility] Blood Venipuncture / Unknown 01/19/2019 1:41 PM EDT 01/19/2019 2:20 PM EDT Narrative [facility] - 01/19/2019 3:27 PM EDT Hemoglobin A1C Ranges: Increased Risk for Diabetes 5.7% to 6.4% Diabetes >= 6.5% Diabetic Goal < 7.0% [facility] BLOOD ORDERABLES Final Res ult [facility]
[address] [place] [address], from Last 3 Months or Most Recently [...] pulse or is breathing): Full Care Teams Specialist Employee Labor Relations Relationship Specialty Start Date End Date Ed Stevens MD [facility] [address] [address] PCP - General Adolescent Medicine 01/21/19
--- NOTE | 2025-08-26 08:50 | US_ITS ---
FINAL REPORT TECHNIQUE: Sonographic images of the thyroid were obtained. CLINICAL HISTORY: THYROID NODULE COMPARISON: None FINDINGS: THYROID ULTRASOUND The right thyroid gland measures 4.8 x 1.9 x 2.4 cm. The left thyroid gland measures 4.3 x 1.4 x 1.7 cm. The thyroid parenchyma is heterogeneous. There are a multitude of hypoechoic nodules scattered in both lobes of the thyroid. The dominant nodule in the right lobe measures up to 1.1 cm, TR 4 nodule. The dominant nodule in the left lobe measures up to 1.0 cm, TR 4 nodule. IMPRESSION: Multitude of bilateral thyroid nodules as above. Recommend follow-up ultrasound in 12 months. Reviewed, Interpreted and Dictated by Ovidio Gaming MD Transcribed by Allyn Burgos Authenticated and [facility]
== END 2025-08-26 23:59 | disposition home or self-care (01) ==
LOC: RAD 08:44
PROVIDERS: PCP Internal Medicine Adolescent Medicine; Visit Provider Nurse Practitioner Family
DX: E04.2 Nontoxic multinodular goiter (principal)
CPT/HCPCS: 76536